=== PATIENT | female | born 1990 | race Caucasian/White ===

== ENCOUNTER 2018-04-28 19:49 | Inpatient (IN) | payer MEDICAID, OTHER | END 2018-05-05 10:38 | disposition home health service (06) | LOC: ED 19:49 → DU 23:51 → MU 23:51 → DU 05-05 10:38 → ED 19:49 → MU 04-29 01:14 → ED 19:49 → MU 04-29 00:43 → ED 19:49 → MU 23:51 → DU 04-29 01:27 | PROC: 30233N1 Transfusion of Nonautologous Red Blood Cells into Peripheral Vein, Percutaneous Approach (ICD-10-PCS; principal; 2018-04-29) | DX: A41.9 Sepsis, unspecified organism (principal); E43 Unspecified severe protein-calorie malnutrition; D68.59 Other primary thrombophilia; E88.40 Mitochondrial metabolism disorder, unspecified; K31.84 Gastroparesis; E83.42 Hypomagnesemia; D64.9 Anemia, unspecified; G93.2 Benign intracranial hypertension; Z68.22 Body mass index [BMI] 22.0-22.9, adult; Z98.2 Presence of cerebrospinal fluid drainage device; Z86.718 Personal history of other venous thrombosis and embolism; Z79.01 Long term (current) use of anticoagulants ==

== ENCOUNTER 2018-05-07 17:23 | Inpatient (IN) | payer MEDICAID ==
[~2018-05-07] VITALS: Ht 157.5 cm; Wt 54.4 kg
[~2018-05-07 17:23] MED LIST: ATIVAN IV; ATIVAN0.5 M1 IV; DIL4I IV; DILAUDID1 MG/M1 IV; GRANISETRON IV; KLONOPIN0.5 MG PO; LORAZEPAM1 IV; LOV40I SC; MORL PO; NAFCILLIN2 G/100 ML IV; PRO40 IV; PROT40I IV; TPN ELECTROLYTE20 M2 IV; ZOF20I IV; ZOF4 IV; [UNRECOGNIZED DRUG - CODE] IV; [UNRECOGNIZED DRUG - OTHER] IV
[2018-05-07 18:36] LABS: PLATELET COUNT 554 x10^3mcL (130-400); RED CELL DISTRIBUTION WIDTH 19.5 % (11.5-14.5)
[2018-05-07 18:47] LABS: CALCIUM 8.6 mg/dL (8.5-10.1); CARBON DIOXIDE 28.9 mmol/L (21-32); CHLORIDE SERUM 103 mmol/L (98-107); CREATININE SERUM 0.6 mg/dL (0.6-1.0); GFR1 > 60 mL/min; GLUCOSE SERUM 111 mg/dL (74-106); POTASSIUM SERUM 3.6 mmol/L (3.5-5.1); SODIUM SERUM 139 mmol/L (136-145)
[2018-05-07 18:51] LABS: BAND NEUTROPHIL 2 % (0-10); MONOCYTE 4 % (0-7); SEGMENTED NEUTROPHILS 73 % (37-75)
[2018-05-07 18:52] LABS: ALKALINE PHOSPHATASE 178 U/L (46-116); ALT/SGPT 90 U/L (14-59); AST/SGOT 19 U/L (15-37); BILIRUBIN TOTAL 0.68 mg/dL (0.20-1.00)
[2018-05-07 18:53] LABS: ALBUMIN 3.1 g/dL (3.4-5.0)
[2018-05-07 18:55] LABS: acanthocyte (spur cell) 1+; rbc morphology (normal/abnorm) ABNORMAL (NORMAL); target cell (codocyte) 2+; tear drop cell (dacryocyte) 1+
[2018-05-07 19:19] LABS: microscopic required? YES; urine erythrocyte NEGATIVE (NEGATIVE)
[2018-05-07 20:37] LABS: CHOLESTEROL/HDL RATIO 4.3; PHOSPHOROUS 3.2 mg/dL (2.5-4.9)
[2018-05-07 20:44] LABS: T3 TOTAL 0.83 ng/mL
[2018-05-07 20:45] LABS: FREE T4 1.04 ng/dL (0.76-1.46); FREE THYROXINE INDEX 2.5 ug/dL (1.4-4.5); T4(THYROXINE) 6.4 ug/dL (4.7-13.3)
[2018-05-07 21:37] LABS: AMPHETAMINE QUAL UR NONE DETECTED (See below)
[2018-05-07 21:54] VITALS: BP 99/43
[2018-05-07 21:57] VITALS: Ht 157.5 cm; Wt 54.4 kg
[2018-05-08 05:51] VITALS: BP 89/47
[2018-05-08 07:15] LABS: CALCIUM 8.1 mg/dL (8.5-10.1); CARBON DIOXIDE 26.2 mmol/L (21-32); CHLORIDE SERUM 105 mmol/L (98-107); CREATININE SERUM 0.6 mg/dL (0.6-1.0); GFR1 > 60 mL/min; GLUCOSE SERUM 110 mg/dL (74-106); MAGNESIUM 2.1 mg/dL (1.8-2.4); PHOSPHOROUS 3.8 mg/dL (2.5-4.9); POTASSIUM SERUM 3.1 mmol/L (3.5-5.1); SODIUM SERUM 140 mmol/L (136-145)
[2018-05-08 08:10] VITALS: BP 91/46
[2018-05-08 09:18] LABS: RED CELL DISTRIBUTION WIDTH 19.3 % (11.5-14.5)
[2018-05-08 11:55] LABS: ATYPICAL LYMPH 1 %; BAND NEUTROPHIL 1 % (0-10); BASOPHIL 0 % (0-2); MONOCYTE 4 % (0-7); PLATELET MORPHOLOGY PLATELETS INCREASED; SEGMENTED NEUTROPHILS 78 % (37-75); rbc morphology (normal/abnorm) ABNORMAL (NORMAL)
[2018-05-08 14:14] LABS: PLATELET COUNT 526 x10^3mcL (130-400)
[2018-05-08 17:46] VITALS: BP 91/45
[2018-05-08 21:06] VITALS: BP 98/51
[2018-05-09 06:11] VITALS: BP 93/46
[2018-05-09 06:31] LABS: CALCIUM 8.2 mg/dL (8.5-10.1); CARBON DIOXIDE 26.1 mmol/L (21-32); CHLORIDE SERUM 106 mmol/L (98-107); CREATININE SERUM 0.5 mg/dL (0.6-1.0); GFR1 > 60 mL/min; GLUCOSE SERUM 90 mg/dL (74-106); MAGNESIUM 2.3 mg/dL (1.8-2.4); PHOSPHOROUS 3.7 mg/dL (2.5-4.9); POTASSIUM SERUM 3.7 mmol/L (3.5-5.1); SODIUM SERUM 142 mmol/L (136-145)
[2018-05-09 06:47] LABS: PLATELET COUNT 476 x10^3mcL (130-400); RED CELL DISTRIBUTION WIDTH 18.7 % (11.5-14.5)
[2018-05-09 07:23] LABS: BAND NEUTROPHIL 2 % (0-10); MONOCYTE 6 % (0-7); SEGMENTED NEUTROPHILS 70 % (37-75); rbc morphology (normal/abnorm) ABNORMAL (NORMAL)
[2018-05-09 07:24] LABS: PLATELET MORPHOLOGY PLATELETS INCREASED
[2018-05-09 09:30] VITALS: BP 96/45
[2018-05-09 12:15] VITALS: BP 107/50
[2018-05-09 14:39] VITALS: BP 117/61
[2018-05-09 17:20] VITALS: BP 98/46
[2018-05-09 21:14] VITALS: BP 93/40
[2018-05-10 05:24] VITALS: BP 102/53
[2018-05-10 07:08] LABS: CALCIUM 8.4 mg/dL (8.5-10.1); CARBON DIOXIDE 25.1 mmol/L (21-32); CHLORIDE SERUM 109 mmol/L (98-107); CREATININE SERUM 0.6 mg/dL (0.6-1.0); GFR1 > 60 mL/min; GLUCOSE SERUM 101 mg/dL (74-106); PHOSPHOROUS 3.4 mg/dL (2.5-4.9); POTASSIUM SERUM 3.9 mmol/L (3.5-5.1); SODIUM SERUM 142 mmol/L (136-145)
[2018-05-10 08:10] LABS: PLATELET COUNT 453 x10^3mcL (130-400)
[2018-05-10 09:38] VITALS: BP 97/55
[2018-05-10 09:59] LABS: BAND NEUTROPHIL 0 % (0-10); BASOPHIL 0 % (0-2); MONOCYTE 7 % (0-7); SEGMENTED NEUTROPHILS 61 % (37-75)
[2018-05-10 10:00] LABS: rbc morphology (normal/abnorm) ABNORMAL (NORMAL)
[2018-05-10 10:01] LABS: acanthocyte (spur cell) 1+; burr cell (echinocyte) 1+; target cell (codocyte) 1+
[2018-05-10 15:17] VITALS: BP 93/43
[2018-05-10 17:07] VITALS: BP 104/38
[2018-05-10 19:15] VITALS: BP 90/66
[2018-05-10 21:39] VITALS: BP 108/52
[2018-05-11 05:41] VITALS: BP 98/54
[2018-05-11 06:22] LABS: CALCIUM 8.3 mg/dL (8.5-10.1); CARBON DIOXIDE 26.6 mmol/L (21-32); CHLORIDE SERUM 110 mmol/L (98-107); CREATININE SERUM 0.5 mg/dL (0.6-1.0); GFR1 > 60 mL/min; GLUCOSE SERUM 96 mg/dL (74-106); PHOSPHOROUS 3.6 mg/dL (2.5-4.9); SODIUM SERUM 143 mmol/L (136-145)
[2018-05-11 09:57] VITALS: BP 96/47
[2018-05-11 10:30] LABS: PLATELET COUNT 364 x10^3mcL (130-400)
[2018-05-11 10:31] LABS: RED CELL DISTRIBUTION WIDTH 19.4 % (11.5-14.5)
[2018-05-11] MEDS ORDERED: LEVOFLOXACIN500 M1 PO (11:01)
[2018-05-11] MEDS ORDERED: BACTROBAN22 TOP (11:23)
[2018-05-11 16:07] LABS: SEGMENTED NEUTROPHILS 66 % (37-75)
[2018-05-11 16:08] LABS: ATYPICAL LYMPH 3 %; MONOCYTE 7 % (0-7)
[2018-05-11 16:09] LABS: BAND NEUTROPHIL 3 % (0-10); rbc morphology (normal/abnorm) ABNORMAL (NORMAL); target cell (codocyte) 2+
[2018-05-11 16:10] LABS: PLATELET MORPHOLOGY PLATELETS NORMAL; acanthocyte (spur cell) 1+; burr cell (echinocyte) 1+; tear drop cell (dacryocyte) 1+
[2018-05-11 16:49] VITALS: BP 96/47
== END 2018-05-11 17:07 | disposition home or self-care (01) | DRG 463 ==
LOC: ED 17:23 → MU 20:08
PROVIDERS: Emergency Medicine; Surgery; ADMIT Internal Medicine
PROC: B544ZZA Ultrasonography of Left Jugular Veins, Guidance (ICD-10-PCS; 2018-05-10)
PROC: 0JH63WZ Insertion of Totally Implantable Vascular Access Device into Chest Subcutaneous Tissue and Fascia, Percutaneous Approach (ICD-10-PCS; 2018-05-10)
PROC: 05HN33Z Insertion of Infusion Device into Left Internal Jugular Vein, Percutaneous Approach (ICD-10-PCS; principal; 2018-05-10 16:45)
DX: N39.0 Urinary tract infection, site not specified (principal); N17.0 Acute kidney failure with tubular necrosis; K83.01 Primary sclerosing cholangitis; E44.0 Moderate protein-calorie malnutrition; D68.59 Other primary thrombophilia; E88.40 Mitochondrial metabolism disorder, unspecified; K31.84 Gastroparesis; K94.22 Gastrostomy infection; E86.0 Dehydration; R62.7 Adult failure to thrive; B96.29 Other Escherichia coli [E. coli] as the cause of diseases classified elsewhere; E78.5 Hyperlipidemia, unspecified; D47.3 Essential (hemorrhagic) thrombocythemia; D64.9 Anemia, unspecified; G93.2 Benign intracranial hypertension; Z68.22 Body mass index [BMI] 22.0-22.9, adult; Z98.2 Presence of cerebrospinal fluid drainage device
CPT/HCPCS: 82962; 83880; 84439; A4301; C1751; C9113; J1642; J1644; J1650; J1885; J1956; J2001; J2060; J2270; J2405; J2543; J2704; J3480; J3490; J7030; J7040; J7131; Q0092; Q9967

== ENCOUNTER 2018-05-26 00:26 | Emergency (ER) | payer MEDICAID ==
[~2018-05-26] VITALS: Ht 162.6 cm; Wt 53.1 kg
[~2018-05-26 00:26] MED LIST changes: +BACTROBAN22 TOP; +LEVOFLOXACIN500 M1 PO
[2018-05-26 00:42] VITALS: Ht 162.6 cm; Wt 53.1 kg
[2018-05-26 03:23] VITALS: BP 111/60
== END 2018-05-26 03:23 | disposition home or self-care (01) ==
LOC: ED 00:26
DX: T82.898A Other specified complication of vascular prosthetic devices, implants and grafts, initial encounter (principal); J45.909 Unspecified asthma, uncomplicated; Z86.2 Personal history of diseases of the blood and blood-forming organs and certain disorders involving the immune mechanism; Z88.2 Allergy status to sulfonamides; Z88.5 Allergy status to narcotic agent; Z88.8 Allergy status to other drugs, medicaments and biological substances; Z91.040 Latex allergy status; Z91.048 Other nonmedicinal substance allergy status

== ENCOUNTER 2018-06-02 16:25 | Emergency (ER) | payer MEDICAID ==
[~2018-06-02] VITALS: Ht 162.6 cm; Wt 52.6 kg
[2018-06-02 16:37] VITALS: Ht 162.6 cm; Wt 52.6 kg
[2018-06-02 18:10] LABS: microscopic required? YES; urine erythrocyte 2+ (NEGATIVE)
[2018-06-02 18:55] LABS: RED CELL DISTRIBUTION WIDTH 24.5 % (11.5-14.5)
[2018-06-02 18:56] LABS: CALCIUM 9.3 mg/dL (8.5-10.1); CARBON DIOXIDE 25.9 mmol/L (21-32); CHLORIDE SERUM 104 mmol/L (98-107); CREATININE SERUM 0.5 mg/dL (0.6-1.0); GFR1 > 60 mL/min; GLUCOSE SERUM 95 mg/dL (74-106); POTASSIUM SERUM 3.8 mmol/L (3.5-5.1); SODIUM SERUM 139 mmol/L (136-145)
[2018-06-02 19:08] LABS: ALKALINE PHOSPHATASE 82 U/L (46-116); ALT/SGPT 21 U/L (14-59); AST/SGOT 29 U/L (15-37); BILIRUBIN TOTAL 0.98 mg/dL (0.20-1.00); TOTAL PROTEIN, SERUM 7.9 g/dL (6.4-8.2)
[2018-06-02 19:15] LABS: BAND NEUTROPHIL 4 % (0-10); BASOPHIL 0 % (0-2); MONOCYTE 5 % (0-7); SEGMENTED NEUTROPHILS 70 % (37-75)
[2018-06-02 19:17] LABS: ovalocyte/elliptocyte 1+; rbc morphology (normal/abnorm) ABNORMAL (NORMAL); target cell (codocyte) 1+; tear drop cell (dacryocyte) 1+
[2018-06-02 19:18] LABS: PLATELET MORPHOLOGY PLATELETS INCREASED
[2018-06-02 19:24] LABS: PLATELET COUNT 562 x10^3mcL (130-400)
[2018-06-02 20:39] VITALS: BP 99/56
[2018-06-02 21:18] LABS: CK-MB 0.5 ng/mL (0-3.6)
== END 2018-06-02 21:18 | disposition home or self-care (01) ==
LOC: ED 16:25
PROVIDERS: Emergency Medicine
DX: N39.0 Urinary tract infection, site not specified (principal); J45.909 Unspecified asthma, uncomplicated; Z88.2 Allergy status to sulfonamides; Z88.8 Allergy status to other drugs, medicaments and biological substances; Z88.1 Allergy status to other antibiotic agents; Z91.040 Latex allergy status; Z98.84 Bariatric surgery status; Z98.890 Other specified postprocedural states
CPT/HCPCS: 83880; J2270; J2405; J2543; Q0092

== ENCOUNTER 2018-06-08 15:37 | Emergency (ER) | payer MEDICAID ==
[~2018-06-08] VITALS: Ht 162.6 cm; Wt 51.7 kg
[2018-06-08 16:07] VITALS: Ht 162.6 cm; Wt 51.7 kg
[2018-06-08] MEDS ORDERED: LEVAQUIN750 MG PO (19:34)
[2018-06-08 19:40] LABS: PLATELET COUNT 399 x10^3mcL (130-400)
[2018-06-08 19:43] LABS: RED CELL DISTRIBUTION WIDTH 26.3 % (11.5-14.5)
[2018-06-08 19:54] LABS: microscopic required? YES; urine erythrocyte TRACE (NEGATIVE)
[2018-06-08 20:49] LABS: rbc morphology (normal/abnorm) ABNORMAL (NORMAL)
[2018-06-08 20:50] LABS: acanthocyte (spur cell) 1+; schistocyte (helmet cell) 1+; target cell (codocyte) 1+
[2018-06-08 23:16] VITALS: BP 101/56
== END 2018-06-08 23:16 | disposition home or self-care (01) ==
LOC: ED 15:37
PROVIDERS: Emergency Medicine
DX: N39.0 Urinary tract infection, site not specified (principal); R53.1 Weakness; D64.9 Anemia, unspecified; K31.84 Gastroparesis; J45.909 Unspecified asthma, uncomplicated; Z98.890 Other specified postprocedural states; Z90.49 Acquired absence of other specified parts of digestive tract; Z90.89 Acquired absence of other organs; Z88.6 Allergy status to analgesic agent; Z88.2 Allergy status to sulfonamides; Z88.1 Allergy status to other antibiotic agents; Z88.8 Allergy status to other drugs, medicaments and biological substances; Z91.040 Latex allergy status
CPT/HCPCS: 82962; J0696; J1200; J1885; J7030; J7040

== ENCOUNTER 2018-06-09 14:54 | Emergency (ER) | payer MEDICAID ==
[~2018-06-09] VITALS: Ht 162.6 cm; Wt 53.5 kg
[~2018-06-09 14:54] MED LIST changes: +LEVAQUIN750 MG PO
[2018-06-09 15:09] VITALS: Ht 162.6 cm; Wt 53.5 kg
[2018-06-09 17:13] VITALS: BP 114/58
== END 2018-06-09 18:58 | disposition home or self-care (01) ==
LOC: ED 14:54
DX: R22.0 Localized swelling, mass and lump, head (principal); R51 Headache; T39.8X5A Adverse effect of other nonopioid analgesics and antipyretics, not elsewhere classified, initial encounter; Y92.89 Other specified places as the place of occurrence of the external cause; J45.909 Unspecified asthma, uncomplicated; Z90.49 Acquired absence of other specified parts of digestive tract; Z90.89 Acquired absence of other organs; Z88.6 Allergy status to analgesic agent; Z88.2 Allergy status to sulfonamides; Z88.1 Allergy status to other antibiotic agents; Z88.8 Allergy status to other drugs, medicaments and biological substances; Z91.040 Latex allergy status
CPT/HCPCS: J1100; Q0163

== ENCOUNTER 2018-09-11 17:49 | Emergency (ER) | payer MEDICAID ==
[~2018-09-11] VITALS: Ht 162.6 cm; Wt 51.3 kg
[2018-09-11 17:55] VITALS: Ht 162.6 cm; Wt 51.3 kg
[2018-09-11 18:54] LABS: PLATELET COUNT 347 x10^3mcL (130-400)
[2018-09-11 18:56] LABS: CALCIUM 8.9 mg/dL (8.5-10.1); CARBON DIOXIDE 29.5 mmol/L (21-32); CHLORIDE SERUM 105 mmol/L (98-107); CREATININE SERUM 0.6 mg/dL (0.6-1.0); GFR1 > 60 mL/min; GLUCOSE SERUM 100 mg/dL (74-106); POTASSIUM SERUM 3.8 mmol/L (3.5-5.1); SODIUM SERUM 143 mmol/L (136-145)
[2018-09-11 19:01] LABS: ALBUMIN 3.7 g/dL (3.4-5.0); ALKALINE PHOSPHATASE 117 U/L (46-116); ALT/SGPT 46 U/L (14-59); AST/SGOT 20 U/L (15-37); BILIRUBIN TOTAL 0.4 mg/dL (0.20-1.00); RED CELL DISTRIBUTION WIDTH 26.3 % (11.5-14.5); TOTAL PROTEIN, SERUM 7.9 g/dL (6.4-8.2)
[2018-09-11 20:22] LABS: BAND NEUTROPHIL 2 % (0-10); METAMYELOCTE 2 % (0-2); MONOCYTE 4 % (0-7); SEGMENTED NEUTROPHILS 52 % (37-75)
[2018-09-11 20:24] LABS: acanthocyte (spur cell) 2+; rbc morphology (normal/abnorm) ABNORMAL (NORMAL)
[2018-09-11 20:25] LABS: target cell (codocyte) 1+; tear drop cell (dacryocyte) 1+
[2018-09-11 20:26] LABS: PLATELET MORPHOLOGY PLATELETS NORMAL
[2018-09-11 22:45] VITALS: BP 96/62
== END 2018-09-11 22:45 | disposition home or self-care (01) ==
LOC: ED 17:49
DX: D50.0 Iron deficiency anemia secondary to blood loss (chronic) (principal); J45.909 Unspecified asthma, uncomplicated; Z90.89 Acquired absence of other organs; Z90.49 Acquired absence of other specified parts of digestive tract; Z86.39 Personal history of other endocrine, nutritional and metabolic disease; Z88.2 Allergy status to sulfonamides; Z88.6 Allergy status to analgesic agent; Z88.8 Allergy status to other drugs, medicaments and biological substances; Z88.1 Allergy status to other antibiotic agents; Z91.041 Radiographic dye allergy status; Z91.040 Latex allergy status
CPT/HCPCS: J1200; J2916

== ENCOUNTER 2018-09-17 22:18 | Emergency (ER) | payer MEDICAID ==
[~2018-09-17] VITALS: Ht 162.6 cm; Wt 51.3 kg
[2018-09-17 22:58] VITALS: Ht 162.6 cm; Wt 51.3 kg
[2018-09-17 23:44] LABS: PLATELET COUNT 334 x10^3mcL (130-400)
[2018-09-17 23:59] LABS: RED CELL DISTRIBUTION WIDTH 25.6 % (11.5-14.5)
[2018-09-18 00:42] LABS: BAND NEUTROPHIL 20 % (0-10); SEGMENTED NEUTROPHILS 70 % (37-75); rbc morphology (normal/abnorm) ABNORMAL (NORMAL)
[2018-09-18 00:43] LABS: PLATELET MORPHOLOGY PLATELETS NORMAL
[2018-09-18 03:15] VITALS: BP 121/80
== END 2018-09-18 03:15 | disposition home or self-care (01) ==
LOC: ED 22:18
PROVIDERS: Emergency Medicine
DX: D64.9 Anemia, unspecified (principal); J45.909 Unspecified asthma, uncomplicated; Z86.39 Personal history of other endocrine, nutritional and metabolic disease; Z90.89 Acquired absence of other organs; Z90.49 Acquired absence of other specified parts of digestive tract; Z98.890 Other specified postprocedural states; Z88.6 Allergy status to analgesic agent; Z88.8 Allergy status to other drugs, medicaments and biological substances; Z88.2 Allergy status to sulfonamides; Z88.1 Allergy status to other antibiotic agents; Z91.041 Radiographic dye allergy status; Z91.040 Latex allergy status
CPT/HCPCS: J1200; J7040; P9016

== ENCOUNTER 2018-09-25 22:01 | Emergency (ER) | payer MEDICAID ==
[~2018-09-25] VITALS: Ht 162.6 cm; Wt 50.9 kg
[2018-09-25 22:34] VITALS: Ht 162.6 cm; Wt 50.9 kg
[2018-09-26 02:13] LABS: UA SPECIFIC GRAVITY 1.015 (1.005-1.035); microscopic required? YES; urine erythrocyte TRACE (NEGATIVE)
[2018-09-26 02:41] LABS: CARBON DIOXIDE 26.5 mmol/L (21-32); CHLORIDE SERUM 107 mmol/L (98-107); CREATININE SERUM 0.5 mg/dL (0.6-1.0); GFR1 > 60 mL/min; GLUCOSE SERUM 90 mg/dL (74-106); POTASSIUM SERUM 3.8 mmol/L (3.5-5.1); SODIUM SERUM 141 mmol/L (136-145)
[2018-09-26 02:45] LABS: ALBUMIN 3.4 g/dL (3.4-5.0); ALKALINE PHOSPHATASE 106 U/L (46-116); ALT/SGPT 38 U/L (14-59); AST/SGOT 18 U/L (15-37); BILIRUBIN TOTAL 0.29 mg/dL (0.20-1.00)
[2018-09-26 02:51] LABS: PLATELET COUNT 198 x10^3mcL (130-400)
[2018-09-26 02:53] LABS: RED CELL DISTRIBUTION WIDTH 27.2 % (11.5-14.5)
[2018-09-26 03:18] LABS: SEGMENTED NEUTROPHILS 65 % (37-75)
[2018-09-26 03:19] LABS: MONOCYTE 5 % (0-7); rbc morphology (normal/abnorm) ABNORMAL (NORMAL)
[2018-09-26 04:45] VITALS: BP 100/59
== END 2018-09-26 04:45 | disposition home or self-care (01) ==
LOC: ED 22:01
PROVIDERS: Emergency Medicine
DX: N39.0 Urinary tract infection, site not specified (principal); E86.0 Dehydration; R51 Headache; R53.1 Weakness; J45.909 Unspecified asthma, uncomplicated; Z86.2 Personal history of diseases of the blood and blood-forming organs and certain disorders involving the immune mechanism; Z90.89 Acquired absence of other organs; Z90.49 Acquired absence of other specified parts of digestive tract; Z88.1 Allergy status to other antibiotic agents; Z88.2 Allergy status to sulfonamides; Z88.6 Allergy status to analgesic agent; Z88.8 Allergy status to other drugs, medicaments and biological substances; Z91.040 Latex allergy status; Z91.048 Other nonmedicinal substance allergy status
CPT/HCPCS: 99406; J2270; J2405; J7030

== ENCOUNTER 2018-09-26 19:05 | Emergency (ER) | payer MEDICAID ==
[~2018-09-26] VITALS: Ht 162.6 cm; Wt 50.8 kg
[2018-09-26 19:10] VITALS: Ht 162.6 cm; Wt 50.8 kg
[2018-09-26 21:04] LABS: PLATELET COUNT 177 x10^3mcL (130-400)
[2018-09-26 21:07] LABS: RED CELL DISTRIBUTION WIDTH 28.5 % (11.5-14.5)
[2018-09-26 21:16] LABS: CALCIUM 9.1 mg/dL (8.5-10.1); CARBON DIOXIDE 25.8 mmol/L (21-32); CHLORIDE SERUM 108 mmol/L (98-107); CREATININE SERUM 0.5 mg/dL (0.6-1.0); GFR1 > 60 mL/min; GLUCOSE SERUM 77 mg/dL (74-106); POTASSIUM SERUM 3.7 mmol/L (3.5-5.1); SODIUM SERUM 143 mmol/L (136-145)
[2018-09-26 21:20] LABS: ALBUMIN 3.5 g/dL (3.4-5.0); ALKALINE PHOSPHATASE 106 U/L (46-116); ALT/SGPT 42 U/L (14-59); AST/SGOT 20 U/L (15-37); BILIRUBIN TOTAL 0.28 mg/dL (0.20-1.00); TOTAL PROTEIN, SERUM 7.1 g/dL (6.4-8.2)
[2018-09-26 21:41] LABS: microscopic required? YES; urine erythrocyte TRACE (NEGATIVE)
[2018-09-26 21:45] LABS: BAND NEUTROPHIL 2 % (0-10); METAMYELOCTE 1 % (0-2); MONOCYTE 3 % (0-7); MYELOCYTE 1 % (0-2); SEGMENTED NEUTROPHILS 61 % (37-75)
[2018-09-26 21:48] LABS: acanthocyte (spur cell) 1+; rbc morphology (normal/abnorm) ABNORMAL (NORMAL); target cell (codocyte) 1+; tear drop cell (dacryocyte) 1+
[2018-09-26 21:49] LABS: PLATELET MORPHOLOGY PLATELETS NORMAL
[2018-09-26 23:01] VITALS: BP 122/61
== END 2018-09-26 23:01 | disposition home or self-care (01) ==
LOC: ED 19:05
PROVIDERS: Emergency Medicine
DX: N39.0 Urinary tract infection, site not specified (principal); J45.909 Unspecified asthma, uncomplicated; Z88.6 Allergy status to analgesic agent; Z88.2 Allergy status to sulfonamides; Z88.1 Allergy status to other antibiotic agents; Z88.8 Allergy status to other drugs, medicaments and biological substances; Z91.040 Latex allergy status; Z90.89 Acquired absence of other organs; Z90.49 Acquired absence of other specified parts of digestive tract
CPT/HCPCS: 36415; J0696; J7030

== ENCOUNTER → 2018-10-29 | Outpatient (CLI) | payer MEDICAID | END | disposition home or self-care (01) | LOC: CT 09:00 | PROC: BW251ZZ Computerized Tomography (CT Scan) of Chest, Abdomen and Pelvis using Low Osmolar Contrast (ICD-10-PCS; principal; 2018-10-29) | DX: I82.629 Acute embolism and thrombosis of deep veins of unspecified upper extremity (principal) | CPT/HCPCS: Q9967 ==

== ENCOUNTER 2018-11-05 17:14 | Emergency (ER) | payer MEDICAID ==
[~2018-11-05] VITALS: Ht 162.6 cm; Wt 49.9 kg
[2018-11-05 17:34] VITALS: Ht 162.6 cm; Wt 49.9 kg
[2018-11-05 19:19] LABS: PLATELET COUNT 237 x10^3mcL (130-400)
[2018-11-05 19:25] LABS: RED CELL DISTRIBUTION WIDTH 30.4 % (11.5-14.5)
[2018-11-05 19:26] LABS: CALCIUM 9.1 mg/dL (8.5-10.1); CARBON DIOXIDE 28.3 mmol/L (21-32); CHLORIDE SERUM 107 mmol/L (98-107); CREATININE SERUM 0.5 mg/dL (0.6-1.0); GFR1 > 60 mL/min; GLUCOSE SERUM 91 mg/dL (74-106); POTASSIUM SERUM 3.8 mmol/L (3.5-5.1); SODIUM SERUM 142 mmol/L (136-145)
[2018-11-05 19:45] LABS: BAND NEUTROPHIL 0 % (0-10); BASOPHIL 0 % (0-2); MONOCYTE 6 % (0-7); SEGMENTED NEUTROPHILS 52 % (37-75)
[2018-11-05 19:47] LABS: rbc morphology (normal/abnorm) ABNORMAL (NORMAL)
[2018-11-05 19:48] LABS: target cell (codocyte) 1+
[2018-11-05 21:32] VITALS: BP 108/59
== END 2018-11-05 21:32 | disposition home or self-care (01) ==
LOC: ED 17:14
PROVIDERS: Emergency Medicine
DX: G44.209 Tension-type headache, unspecified, not intractable (principal); T67.5XXA Heat exhaustion, unspecified, initial encounter; J45.909 Unspecified asthma, uncomplicated; Z86.2 Personal history of diseases of the blood and blood-forming organs and certain disorders involving the immune mechanism; Z90.89 Acquired absence of other organs; Z90.49 Acquired absence of other specified parts of digestive tract; Z88.1 Allergy status to other antibiotic agents; Z88.2 Allergy status to sulfonamides; Z88.6 Allergy status to analgesic agent; Z88.8 Allergy status to other drugs, medicaments and biological substances; Z91.040 Latex allergy status; Z91.048 Other nonmedicinal substance allergy status; X58.XXXA Exposure to other specified factors, initial encounter; Y93.89 Activity, other specified; Y92.89 Other specified places as the place of occurrence of the external cause; Y99.8 Other external cause status
CPT/HCPCS: J7030

== ENCOUNTER 2018-12-17 18:33 | Emergency (ER) | payer MEDICAID ==
[~2018-12-17] VITALS: Ht 162.6 cm; Wt 49.9 kg
[2018-12-17 18:36] VITALS: Ht 162.6 cm; Wt 49.9 kg
[2018-12-17 19:10] LABS: PLATELET COUNT 233 x10^3mcL (130-400)
[2018-12-17 19:17] LABS: CALCIUM 8.6 mg/dL (8.5-10.1); CARBON DIOXIDE 24.7 mmol/L (21-32); CHLORIDE SERUM 106 mmol/L (98-107); CREATININE SERUM 0.5 mg/dL (0.6-1.0); GFR1 > 60 mL/min; GLUCOSE SERUM 94 mg/dL (74-106); SODIUM SERUM 141 mmol/L (136-145)
[2018-12-17 19:20] LABS: RED CELL DISTRIBUTION WIDTH 18.2 % (11.5-14.5)
[2018-12-17 19:22] LABS: ALKALINE PHOSPHATASE 122 U/L (46-116); ALT/SGPT 76 U/L (14-59); AST/SGOT 35 U/L (15-37); BILIRUBIN TOTAL 0.3 mg/dL (0.20-1.00)
[2018-12-17 19:34] LABS: ALBUMIN 3.5 g/dL (3.4-5.0); TOTAL PROTEIN, SERUM 7.1 g/dL (6.4-8.2)
[2018-12-17 19:36] LABS: BAND NEUTROPHIL 1 % (0-10); MONOCYTE 10 % (0-7); SEGMENTED NEUTROPHILS 52 % (37-75)
[2018-12-17 19:39] LABS: rbc morphology (normal/abnorm) ABNORMAL (NORMAL); target cell (codocyte) 1+
[2018-12-17 19:40] LABS: PLATELET MORPHOLOGY PLATELETS NORMAL; acanthocyte (spur cell) 1+
[2018-12-17 21:35] VITALS: BP 106/60
== END 2018-12-17 21:35 | disposition home or self-care (01) ==
LOC: ED 18:33
DX: R07.89 Other chest pain (principal); M54.9 Dorsalgia, unspecified; J45.909 Unspecified asthma, uncomplicated; Z90.49 Acquired absence of other specified parts of digestive tract; Z90.89 Acquired absence of other organs; Z98.890 Other specified postprocedural states; Z88.2 Allergy status to sulfonamides; Z88.8 Allergy status to other drugs, medicaments and biological substances; Z88.1 Allergy status to other antibiotic agents; Z86.2 Personal history of diseases of the blood and blood-forming organs and certain disorders involving the immune mechanism; Z91.048 Other nonmedicinal substance allergy status
CPT/HCPCS: 36415; J2270; Q0092

== ENCOUNTER 2019-04-01 22:47 | Inpatient (IN) | payer MEDICAID ==
[~2019-04-01] VITALS: Ht 162.6 cm; Wt 47.6 kg
[2019-04-01 22:54] VITALS: Ht 162.6 cm; Wt 47.6 kg
--- NOTE | 2019-04-02 00:03 | NUR ---
PT PRESENTS TO ED WITH C/O FEVER. PT HAS AN EXTENSIVE MEDICAL HISTORY WITH A PORT. PT STATES THAT PRIOR TO THANKGIVING SHE WAS HOSPITALIZED FOR IV ANTIBIOTIC TREATMENT OF AN INFECTION OF HER PORT. PT STATES THAT SHE WAS DISCHARGED HOME BUT RECEIVED A CALL TODAY FROM HER VOCATIONAL TECHNICAL EDUCATION DIRECTOR TELLING HER THAT HER FOLLOW UP CULTURES ARE POSITIVE STILL. PT ALSO REPORTS THAT SINCE LAST NIGHT SHE HAS BEEN EXPERIENCING BODY ACHES. APPROXIMATELY 2 HRS AGO PT DEVELOPED CHILLS AND STATES THAT SHE FEELS FEVERISH. PT NOTED WITH CHILLS AND TREMORS. PT ALSO STATES TO FEELING NAUSEOUS. PT IS AOX4, RESP EVEN AND UNLABORED, MILD DISTRESS NOTED.
[2019-04-02 00:57] LABS: CALCIUM 9.6 mg/dL (8.5-10.1); CARBON DIOXIDE 29.2 mmol/L (21-32); CHLORIDE SERUM 103 mmol/L (98-107); CREATININE SERUM 0.7 mg/dL (0.6-1.0); GFR1 > 60 mL/min; GLUCOSE SERUM 98 mg/dL (74-106); POTASSIUM SERUM 3.7 mmol/L (3.5-5.1); SODIUM SERUM 140 mmol/L (136-145)
[2019-04-02 01:02] LABS: ALKALINE PHOSPHATASE 134 U/L (46-116); ALT/SGPT 64 U/L (14-59); AST/SGOT 31 U/L (15-37); BILIRUBIN TOTAL 0.27 mg/dL (0.20-1.00)
[2019-04-02 01:04] LABS: PLATELET COUNT 281 x10^3mcL (130-400); RED CELL DISTRIBUTION WIDTH 13.2 % (11.5-14.5); TOTAL PROTEIN, SERUM 8.3 g/dL (6.4-8.2)
[2019-04-02 01:06] LABS: BASOPHIL % 0 % (0-2)
--- NOTE | 2019-04-02 01:26 | NUR ---
PT NO LONGER SHAKING AT THIS TIME. PT RESTING IN A POSITION OF COMFORT, TAKING TO VISITOR AT BEDSIDE.
--- NOTE | 2019-04-02 01:50 | NUR ---
DR HERR AWARE OF PERSISTANT ELEVATED TEMPERATURE. BLANKET REMOVED FROM PT AT THIS TIME.
--- NOTE | 2019-04-02 04:03 | NUR ---
INFORMED ADMITTING RESIDENT OF PT NPO STATUS AND SHE STATES THAT SHE WILL CHANGE THE ORDERS.
--- NOTE | 2019-04-02 04:37 | NUR ---
MORPHINE AND ZOFRAN ADMINISTERED PER PRN ORDER FOR PAIN AND NAUSEA. SEE EMAR FOR RECORD.
[2019-04-02 05:25] LABS: PLATELET COUNT 246 x10^3mcL (130-400); RED CELL DISTRIBUTION WIDTH 13.4 % (11.5-14.5)
[2019-04-02 05:29] LABS: BASOPHIL % 0 % (0-2)
[2019-04-02 05:46] LABS: CARBON DIOXIDE 23.6 mmol/L (21-32); CHLORIDE SERUM 105 mmol/L (98-107); CREATININE SERUM 0.6 mg/dL (0.6-1.0); GFR1 > 60 mL/min; GLUCOSE SERUM 131 mg/dL (74-106); MAGNESIUM 1.3 mg/dL (1.8-2.4); PHOSPHOROUS 2.1 mg/dL (2.5-4.9); POTASSIUM SERUM 3.1 mmol/L (3.5-5.1); SODIUM SERUM 138 mmol/L (136-145)
--- NOTE | 2019-04-02 05:56 | NUR ---
PT RESTING WITH EYES CLOSED AT THIS TIME, RESP EVEN AND UNLABORED, NO ACUTE DISTRESS NOTED.
[2019-04-02 06:30] VITALS: BP 104/59
--- NOTE | 2019-04-02 07:04 | NUR ---
PT RESTING IN A POSITION OF COMFORT, AOX4, RESP EVEN AND UNLABORED, NO ACUTE DISTRESS NOTED.
--- NOTE | 2019-04-02 07:22 | NUR ---
ATTEMPTED TO CALL REPORT, RN NOT AVAILABLE
--- NOTE | 2019-04-02 07:38 | NUR ---
PT REPORT CALLED TO JUSTIN WALLS TO ASSUME PT CARE.
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
--- NOTE | 2019-04-02 08:57 | NUR ---
IVF NS AT 100ML/HR INFUSING TO RT HAND IV SITE, NO INFILTRATION NOTED. RT AT BEDSIDE GIVEN BREATHING TREATMENT.
[2019-04-02 10:38] VITALS: BP 98/43
[2019-04-02 12:12] VITALS: BP 107/52
--- NOTE | 2019-04-02 14:22 | NUR ---
RECEIVED A CALL FROM OR NURSE THAT DOCTOR ALBA IS IN OR FOR PORT A CATH REMOVAL. I WENT IN THE ROOM TO INFORMED PATIENT, TOYA WIPES PROVIDED. 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 PATIENT REPEATELY ASKED FOR MEDICINES TO PUT HER TO SLEEP DURING PORT A CATH REMOVAL. PER NELY OR NURSE PATIENT WILL BE RECEIVING SEDATIVE PRIOR TO PROCEDURE. PATIENT THEN STATED THAT SHE HAD TO BE ASLEEP IF NOT SHE WOULD NOT DOING IT.
--- NOTE | 2019-04-02 14:30 | NUR ---
PATIENT WAS SITTING ON THE GUENEY AND DOCTOR WILLIS ATTEMPTED TO EXPLAIN TO PATIENT REGUARDING TO THE PROCEDURE. PATIENT BECAME VERY EMOTIONAL AND CRIED STATED SHE WILL NOT LET HIM REMOVE PORT A CATH WITHOUT GIVEN ANESTHESIA. DOCTOR WILLIS LEFT THE ROOM STATED WILL RESCHEDULE.
--- NOTE | 2019-04-02 15:00 | NUR ---
SEEN PATIENT CRYING STATED THAT SHE REALLY WANTS HER PORT A CATH TO BE REMOVED EVEN THOUGH WITHOUT ANESTHESIA, SHE ASKED ME TO CALL DOCTOR WILLIS BACK.
--- NOTE | 2019-04-02 15:14 | NUR ---
Discount pharmacy card and list to low cost medical clinics given to patient by Brinda chen.
[2019-04-02 15:52] VITALS: BP 123/63
--- NOTE | 2019-04-02 16:57 | NUR ---
PATIENT STATED THAT SHE IS HAVING FEVER AND HER PORT A CATH HAS TO BE REMOVED NOW. TEMP CHEKCED =99.1, INFORMED PATIENT THAT SHE HAS NO FEVER AT THIS TIME. PATIENT REQUESTED TYLENOL VIA RECTAL. TYLENOL 650MG PER RECTAL GIVEN PER PATIENT'S REQUESTED. PATIENT IS VERY FRUSTATED AND ANXIOUS STATED I AM IN PAIN AND I WANT ATIVAN FOR MY ANXIETY.
--- NOTE | 2019-04-02 17:05 | NUR ---
MORPHINE 2MG IVP GIVEN SLOWLY TO RIGHT HAND IV SITE, NO IV IN FILTRATION NOTED. PATIENT BECAME MORE TENSE WHEN HER PARENTS ARRIVED. DEDICATED REGIONAL DRIVER AND RATOPRINTER MADE AWARE. I SPOKE TO DOCTOR JAMIL STATED THAT SHE WILL TRY TO CONTACT DOCTOR ALBA AGAIN.
--- NOTE | 2019-04-02 17:12 | NUR ---
PATIENT IS VERY FRUSTATED AND KEPT ASKING ME TO CALL THE SURGEON TO REMOVE PORT A CATH. I EXPLAINED TO PATIENT THAT SURGEON MADE AWARE. PATIENT BECAME ANGRY AND REQUESTED FOR ME TO CALL DOCTOR. DOCTOR JAMIL PAGED AND CALLED BACK STATED THAT SHE WILL TRY TO CALL DOCTOR ALBA BACK. PATIENT'S PARENTS AT BEDSIDE.
[2019-04-02 17:26] LABS: UA SPECIFIC GRAVITY <=1.005 (1.005-1.035); microscopic required? YES; urine erythrocyte 1+ (NEGATIVE)
--- NOTE | 2019-04-02 17:57 | NUR ---
DOCTOR GARCÍA SPOKE TO PATIENT VIA PHONE. NOTED NEW ORDER FOR ATIVAN IV PRN.
--- NOTE | 2019-04-02 19:00 | NUR ---
ATIVAN 0.5MG IVP GIVEN BY CHARGE NURSE FOR ANXIETY.
--- NOTE | 2019-04-02 19:31 | NUR ---
RECIEVED PT FROM PREVIOUS NURSE. PT SLEEPING. ON 2L NC, RR EVEN AND UNLABORED. DENIES PAIN AND SOB, NO SIGNS OF RESP DISTRESS. BED IN LOWEST POSITION AND CALL LIGHT WITHIN REACH. WILL CONTINUE TO MONITOR.
[2019-04-02 20:24] VITALS: BP 123/64
--- NOTE | 2019-04-02 20:48 | NUR ---
PT TEMP WAS 102.4 AND TYLENOL RECTAL WAS GIVEN ORDERED. PT REFUSING ICE PACKS. WILL CONTINUE TO MONITOR.
--- NOTE | 2019-04-02 23:12 | NUR ---
SECOND TYLENOL SUPP ADMINISTERED PER DR. PETERS.
--- NOTE | 2019-04-03 00:20 | NUR ---
PT TEMP 102.2 AFTER SECOND TYLENOL SUPP. INFORMED DR. DOAN. AWAITING FURTHER ORDERS.
--- NOTE | 2019-04-03 01:04 | NUR ---
INFORMED PT OF IMPORTANCE OF USING ICE PACKS AND APPLYING COOLING MEASURES TO BRING DOWN TEMP. PT AGREED. ICE PACKS APPLIED.
--- NOTE | 2019-04-03 03:30 | NUR ---
PT RESTING IN BED. RR EVEN AND UNLABORED. IN NO ACUTE DISTRESS. CALL LIGHT WITHIN REACH. BED IN LOWEST POSITION. WILL CONTINUE TO MONITOR.
[2019-04-03 05:03] VITALS: BP 94/46
--- NOTE | 2019-04-03 05:08 | NUR ---
PT BP 94/ MAP. PT ASYMPTOMATIC. INFORMED DR. DOAN. NO FURTHER ORDERS AT THIS TIME.
[2019-04-03 07:04] LABS: PLATELET COUNT 207 x10^3mcL (130-400); RED CELL DISTRIBUTION WIDTH 13.2 % (11.5-14.5)
--- NOTE | 2019-04-03 07:05 | NUR ---
RECEIVED PT FROM PAL RN. PT RESTING IN BED W/ BOTH EYES CLOSED. NO S/S OF ACUTE DISTRESS. NO S/S OF PAIN. NO SOB ON 2LNC. IV WNL TO LFA, IV FLUIDS FLOWING. SITE WNL. CONTACT PREC IN PLACE. BED IN LOW POSITION. CALL LIGHT WITHIN REACH. WILL CONT. TO MONITOR.
[2019-04-03 07:36] LABS: CALCIUM 8.2 mg/dL (8.5-10.1); CARBON DIOXIDE 26.3 mmol/L (21-32); CHLORIDE SERUM 106 mmol/L (98-107); CREATININE SERUM 0.6 mg/dL (0.6-1.0); GFR1 > 60 mL/min; GLUCOSE SERUM 103 mg/dL (74-106); MAGNESIUM 1.8 mg/dL (1.8-2.4); PHOSPHOROUS 3.7 mg/dL (2.5-4.9); POTASSIUM SERUM 3.5 mmol/L (3.5-5.1); SODIUM SERUM 140 mmol/L (136-145)
[2019-04-03 08:42] VITALS: BP 98/55
--- NOTE | 2019-04-03 12:09 | NUR ---
BP 90/47, DR. GARCÍA MADE AWARE. RECEIVED TELEPHONE ORDER FOR NS BOLUS 2L ONCE SEE MAR FOR ORDER. NO S/S OF ACUTE DISTRESS. ASYMPTOMATIC AT THIS TIME. NO DIZZINESS. AA/OX4. LAYING IN BED. IV WNL TO LFA, IVF FLOWING. NO CHEST PAIN. NO SOB ON 2LNC. REPOSITIONS INDEPENDENTLY. BED IN LOW POSITION. CALL LIGHT WITHIN REACH. WILL CONT. TO MONITOR.
[2019-04-03 12:25] VITALS: BP 93/46
[2019-04-03 13:04] LABS: BAND NEUTROPHIL 29 % (0-10); MONOCYTE 4 % (0-7); SEGMENTED NEUTROPHILS 53 % (37-75)
[2019-04-03 13:05] LABS: PLATELET MORPHOLOGY PLATELETS NORMAL; rbc morphology (normal/abnorm) NORMAL (NORMAL)
--- NOTE | 2019-04-03 14:52 | NUR ---
Initial Nutrition Assessment: 241T/B ARIAN KITCHENLIN PABLO IA HR Dx: Bacteremia PMHx: mitochondrial disease, primary sclerosing cholangitis, pseudotumor cerebri with ventriculoperitoneal shunt placement, gastroparesis and currently on TPN, deep venous thrombosis PSHx: Cholecystectomy, Other (colectomy, BUCKRAM SEWER shunt, ), G tube placement Labs: CA 8.2L, ALT 64H, WBC 19.2H, HGB 11.0L Meds: Ativan, Zofran, zosyn Diet: TPN, currently PPN to be started PO intake since admission: NPO Ht: 162.56 cm (64") Wt: 47.6 kg (105#) BMI: 18 kg/m2 Bed scale: 105# IBW: 120# (55 kg) %IBW: 87 UBW: 105# Age: 28/F Food Allergies: Iodine Skin: intact Osorio: 19 Edema: none GI: Last BM: 04/03 Per H&P, Pt is a 28-year-old female with multiple medical problems including mitochondrial disease, primary sclerosing cholangitis, pseudotumor cerebri with ventriculoperitoneal shunt placement, gastroparesis and currently on TPN, deep venous thrombosis, previous splenectomy, cholecystectomy, colectomy with ileostomy placement, came in to the ED because her GI specialist asked her to go to ED since she her blood culture showed positive for "staph" and grew gram positive cocci in clusters. RD Note (04/03): Patient was alert and oriented. Patient said that she is on TPN at home and eats little bites of food occasionally for oral gratification. Patient has sepsis 2/2 infected port and Hx gastroparesis with intestinal dysmotility, s/p colon resection. FNS received consult for 'PPN' on 04/02. Patient will have port replacement and will received PPN until that time. Problem with: N/V/D/C: none Problems with: Chewing: Swallowing: none, but no PO d/t medical condition Current appetite: good Recent wt change: has lost some weight, not sure abt lbs. %wt change: n/a Vitamin/Supplement use: n/a Special diet at home: TPN D 25%, AA 5% @ 80cc/hr, lipids 10% @ 10cc/hr (per pharmacy) Physical activity: sedentary Nutrition education given: none at this aldo Food-drug interactions: none Education given: n/a Estimated Nutritional Needs Based on current body weight (47.6 kg) Energy: 1360-2133 kcal/day (30-35 kcal/kg for bacteremia) Protein: 57-67 g/day (1.2-1.4 g/kg for bacteremia) Fluid: 3128-4061 mL/day (1 mL/kcal) Nutrition Diagnosis: 1. Increased nutrient needs related to bacteremia as evidenced by WBC 19.2 Intervention 1. Recommend PPN (per pharmacy), D 10%, AA 4.25%, IL 10% @ 90cc/hr. This will provide 1460 kcal and 81.6g protein. This will meet 100% calorie and protein needs of the patient. 2. Once, port is replaced, start TPN per patient's home regimen. D 25%, AA 5% @ 80 ml/hr, IL 20% @ 10 ml/hr. This will meet 100% calorie and protein needs of the patient. Paged Dr. Reyes, waiting for call back. Monitor/Evaluate Goal: PO intake at least 75% of estimated needs Monitor: PO intake, Labs, GI function F/U in 2-3 days as high risk 04/05-
[2019-04-03 16:42] VITALS: BP 103/51
--- NOTE | 2019-04-03 18:34 | NUR ---
PT LAYING IN BED. AA/OX4. NO S/S OF ACUTE DISTRESS. NO SOB ON 2LNC. NO CHEST PAIN. NO N/V. NO CHILLS. NO FEVER. VS STABLE AT THIS TIME. IV WNL TO LFA, IVF FLOWING. CALM/COOPERATIVE AT THIS TIME. ILEOSTOMY CDI. CONTACT PREC IN PLACE. BED IN LOW POSITION. CALL LIGHT WITHIN REACH. WILL ENDORSE TO ONCOMING SHIFT.
--- NOTE | 2019-04-03 20:00 | NUR ---
RECEIVED PT IN BED, A/O X4. ABLE TO VERBALIZE NEEDS. DENIES HEADACHE/ DIZZINESS. AFEBRILE AND VITAL SIGNS STABLE. RESP. EVEN AND UNLABORED, LUNG SOUNDS CLEAR BILAT. ON ROOM AIR AT THIS TIME. SR /ST ON THE MONITOR, DENIES CP OR PRESSURE. ILEOSTOMY TO RQ ABDOMEN INTACT AND PATENT. GT TO LT ABD. WITH GREEN DRAINAGE NOTED. BS ACTIVE, NO N/V NOTED. IVF, D10 AT 90ML/HR, INFUSING VIA LFA, SITE CLEAR. ASSISTED WITH HS CARE. ON CONTACT ISOLATION, WILL MAINTAINED PREC. CALL LIGHT WITHIN REACH. WILL CONTINUE TO MONITOR.
[2019-04-03 20:05] VITALS: BP 101/51
--- NOTE | 2019-04-03 22:00 | NUR ---
STARTED ON PPN AT 90ML/HR ORDERED.
--- NOTE | 2019-04-03 22:30 | NUR ---
COMPLAINED OF GEN. BODY PAIN, 09/23, REQUESTING PAIN MED, MEDICATED WITH MORPHINE SULFATE WITH RELIEF. WILL CONTINUE TO MONITOR.
--- NOTE | 2019-04-04 01:18 | NUR ---
REQUESTED ATIVAN FOR ANXIETY, MEDICATED ORDERED. RESP EVEN AND UNLABORED. RESTING QUIETLY ,WITH EYES CLOSED , APPEARS ASLEEP, EASILY AROUSABLE. WILL CONTINUE TO MONITOR.
[2019-04-04 04:52] VITALS: BP 100/56
--- NOTE | 2019-04-04 06:08 | NUR ---
AFEBRILE AND VITAL SIGNS STABLE. RESP. EVEN AND UNLABORED. NO ACUTE DISTRESS NOTED. DUE MEDS GIVEN ORDERED, LUIS. WELL. PPN INFUSING VIA LT HAND, SITE CLEAR. ILEOSTOMY BAG INTACT AND PATENT. GT IN PLACE. KEPT COMFORTABLE.NPO MAINTAINED. WILL CONTINUE TO MONITOR.
--- NOTE | 2019-04-04 06:55 | NUR ---
PT REFUSED TOYA WASH AT THIS TIME. PT STATES SHE WANTED TO SLEEP FOR FEW MORE MINS. REPORT GIVEN TO ZACH WALLS IN OR. WILL ENDORSE TO INCOMING NURSE.
--- NOTE | 2019-04-04 07:30 | NUR ---
RECEIVED PT FROM NIGHT RN. CRUZ X 4. PT AMBULATED FROM BATHROOM TO BED WITHOUT DIFFICULTY. RESPIRATIONS UNLABORED WITH EQUAL CHEST EXPANSION. LUNG SOUNDS CLR BILATERALLY ON RA. TELE 13 WITH SR. PERIPHERAL PULSES STRONG BILATERALLY AND NO EDEMA NOTED. IELOSTOMY TO RIGHT ABD AND CDI. G TUBE CLAMPED. CALL LIGHT WITHIN REACH. TINSTRUCTED TO CALL FOR ANY PAIN/DISCOMFORT.WILL CONTINUE TO MONITOR PT.
--- NOTE | 2019-04-04 08:21 | NUR ---
OR NURSE AND TECH HERE TO FACILITIES CLERK PT.LAB AT BEDSIDE DRAWING BLOOD.WILL TAKE PPN WITH HER.
[2019-04-04 08:55] LABS: CALCIUM 8.4 mg/dL (8.5-10.1); CARBON DIOXIDE 27.6 mmol/L (21-32); CHLORIDE SERUM 109 mmol/L (98-107); CREATININE SERUM 0.6 mg/dL (0.6-1.0); GFR1 > 60 mL/min; GLUCOSE SERUM 90 mg/dL (74-106); POTASSIUM SERUM 3.7 mmol/L (3.5-5.1); SODIUM SERUM 142 mmol/L (136-145)
[2019-04-04 09:19] LABS: PLATELET COUNT 199 x10^3mcL (130-400); RED CELL DISTRIBUTION WIDTH 13.4 % (11.5-14.5)
[2019-04-04 10:33] LABS: BAND NEUTROPHIL 12 % (0-10); BASOPHIL 0 % (0-2); MONOCYTE 9 % (0-7); SEGMENTED NEUTROPHILS 63 % (37-75)
[2019-04-04 10:40] LABS: acanthocyte (spur cell) 1+; burr cell (echinocyte) 1+; rbc morphology (normal/abnorm) ABNORMAL (NORMAL); target cell (codocyte) 1+; tear drop cell (dacryocyte) 1+
--- NOTE | 2019-04-04 11:21 | NUR ---
PT BACK FROM RECOVERY ROOM. S/P MEDIPORT REMOVED. VSS. L CHEST WITH DRESSING CDI.
[2019-04-04 11:22] VITALS: BP 94/66
[2019-04-04 11:59] VITALS: BP 99/43
--- NOTE | 2019-04-04 12:00 | NUR ---
PT DEMANDED TO TALK TO THE DOCTOR.WANTED A PICCLINE OR MIDLINE INSERTED ON HER.PAGED .
--- NOTE | 2019-04-04 13:55 | NUR ---
I HAVE REVIEWED THE DATA COLLECTION BY KAVITA HIGGINBOTHAM (NAME):BELKIS ALFARO RN ENTERED ON (DATE/TIME):04/04/19 7369 I CONCUR WITH THE DATA AND ANY EXCEPTIONS OR COMMENTS ARE LISTED BELOW:
--- NOTE | 2019-04-04 14:12 | NUR ---
CAME TO TALK TO PT.EXPLAINED TO PT THAT HE'S WAITING FOR THE CULTURE AND SENSITIVITY TO BE DONE.PT VERBALIZES UNDERSTANDING
--- NOTE | 2019-04-04 15:17 | NUR ---
CANCELLATION REQUESTED FOR ECHOCARDIOGRAM
[2019-04-04 16:21] VITALS: BP 107/54
--- NOTE | 2019-04-04 18:00 | NUR ---
CALLED TO TO CALL/TXT RE; THE RESULTS OF THE BLOOD C/S W/ SENSITIVITY TO MEDICATIONS. SHE STATED SHE'LL TELL .
--- NOTE | 2019-04-04 18:25 | NUR ---
INFORMED BY GOLF CART ATTENDANT ABOUT BLOOD CULTURE RESULT. GOLF CART ATTENDANT TALKED TO DR. CORDERO AND DR CORDERO WILL INFORM DR GARCÍA. NO SIGNIFICANT CHANGES NOTED. WILL ENDORSE CARE TO NIGHT RN.
--- NOTE | 2019-04-04 19:36 | NUR ---
RECEIVED AWAKE SITIING IN BED, FAMILY AT BEDSIDE VERY SUPPORTIVE OF PATIENT'S CURRENT PLAN OF CARE. IV SITE ACCESS AT THE LEFT HAND INTACT AND PATENT WITH PPN INFUSING AT 90ML/HR TOLERATING WELL. ON TELE #[address] AT 101/MIN. DENEIS ANY CHEST PAIM/DISCOMFORT. CALL LIGHT WITHIN REACH. INSTRUCTED TO CALL FOR ANY ASSISTANCE NEEDED AND VEBRALIZED UNDERSTANIDNG.
[2019-04-04 20:49] VITALS: BP 107/61
--- NOTE | 2019-04-04 23:30 | NUR ---
ATIVAN 0.5MG IVP FOR ANXIETY REQUESTED BY PATIENT. AMBULATED TO BATHROOM FOR PERSONAL NEEDS. KEPT CLEAN AND DRY.
--- NOTE | 2019-04-05 01:00 | NUR ---
SEEN BY DR KUMAR, PT ASLEEP SOUNDLY AT THIS TIME. PPN INFIUSING WELL VIAL LEFT HAND TOLERATING WELL. DR Kelly KUMAR DISCONTINUED IV ZOSYN, WILL CONTINUE TO MONITOR.
[2019-04-05 05:26] VITALS: BP 94/45
--- NOTE | 2019-04-05 05:52 | NUR ---
NO ADVERSE REACTION NOTED FROM ATB THERAPY. NO S/S OF ACUTE DISTRESS. ALL NEEDS ATTENDED.
[2019-04-05 08:52] VITALS: BP 116/52
--- NOTE | 2019-04-05 11:53 | NUR ---
AAO TIMES 4. TELE # 13 SR. PPN INFUSING AT 90 ML PER HOUR. IV SITE CDI. BS'S HYPOACTIVE. PALMER STRONG. BRP SELF. ILEOSTOMY BAG EMPTY, PATIENT EMPTIES HERSELF. NO C/O PAIN. COOPERATIVE. ANXIOUS TO GO HOME, THE DR TOLD HER SHE MIGHT GO HOME TOMORROW AFTER A PIC LINE INSERTED, SHE IS HAPPY ABOUT THAT. O2 2L NC, O2 SAT 98%.
[2019-04-05 12:19] VITALS: BP 104/57
--- NOTE | 2019-04-05 12:22 | NUR ---
CLEANED GT SITE, SLIGHT AMOUNT OF SEROUS SANGUINOUS FLUID TO SPLIT GAUZE. CLEANED WITH WOUND CLEANSER, APPLIED A NEW SPLIT GAUZE.
[2019-04-05 12:37] LABS: PLATELET COUNT 210 x10^3mcL (130-400); RED CELL DISTRIBUTION WIDTH 13.4 % (11.5-14.5)
[2019-04-05 12:45] LABS: CREATININE SERUM 0.5 mg/dL (0.6-1.0); GFR1 > 60 mL/min; POTASSIUM SERUM 3.6 mmol/L (3.5-5.1)
[2019-04-05 13:02] LABS: CARBON DIOXIDE 25.7 mmol/L (21-32); CHLORIDE SERUM 109 mmol/L (98-107); GLUCOSE SERUM 85 mg/dL (74-106); MAGNESIUM 1.9 mg/dL (1.8-2.4); PHOSPHOROUS 3.2 mg/dL (2.5-4.9); SODIUM SERUM 143 mmol/L (136-145)
[2019-04-05 13:10] LABS: BAND NEUTROPHIL 2 % (0-10); MONOCYTE 9 % (0-7); SEGMENTED NEUTROPHILS 68 % (37-75)
[2019-04-05 13:13] LABS: rbc morphology (normal/abnorm) NORMAL (NORMAL)
[2019-04-05 14:46] VITALS: BP 104/57
[2019-04-05 16:16] VITALS: BP 100/51
--- NOTE | 2019-04-05 17:55 | NUR ---
AAO TIMES 4. TPN TO LFA PATENT, CDI. RFA IV SITE SLIGHLTY SWOLLEN, RESTARTING FOR NEW IV SITE. C/O PAIN TO ABDOMEN AND ALSO TO PREVIOUS SITE FROM FAVIAN CATH. GAVE MORPHINE 1 MG IVP FOR PAIN, BP WAS 103/58, DR EPPS WAS CALLED BECAUSE HER BP WAS TOO LOW FOR 2 MG MORPHINE, SO SHE CHANGED IT TO 1 MG IVP Q 3 HOURS PRN AND IT WAS GIVEN AT 1735. SHE WAS NOT HAPPY ABOUT GETTING HER MORPHINE REDUCED, BUT I TOLD HER HER BP WAS TOO LOW FOR THAT HIGH OF A DOSE, SHE STATED THAT OTHER NURSES HAVE GIVEN IT. MELI SMITH CHARGE NURSE AGREED THAT HER BP WAS TOO LOW FOR A DOSE OF 2 MG MORPHINE, BUT SHE WAS OK WITH GIVING THE NEW AMOUNT OF 1 MG IVP. SHE IS TALKING ON HER PHONE AND WATCHING TV.
--- NOTE | 2019-04-05 19:30 | NUR ---
PT RECIEVED FROM DAY NURSE. PT RESTING IN BED AT THIS TIME. DENIES PAIN OR DISCOMFORT. PT A/OX4, CALM AND COOPERATIVE AT THIS TIME. TELE 13, SR. DENIES CP, NV, DIZZINESS, OR PALPATATIONS. PALPABLE PULSES, NO EDEMA NOTED AT THIS TIME. BREATHING E/U ON 2L NC, DENIES SOB. ABD SOFT AND ROUND, DENIES PAIN TO PALPATION. ILEOSTOMY INTACT, PT EMPTIES BY SELF. GTUBE CLAMPED AND DRAINING. PT AMBULATORY AT BASELINE. IV TO L HAND RUNNING TPN, INTACT AND INFUSING. BED AT LOWEST POSITION. CALL LIGHT WITHIN REACH. WILL CONTINUE TO MONITOR.
[2019-04-05 20:35] VITALS: BP 117/73
--- NOTE | 2019-04-05 20:45 | NUR ---
UNABLE TO GAIN SECOND IV ACCESS FOR ANTIBIOTICS. CALLED PHARMACY, PHARMACY STATED TPN CAN BE PAUSED WHILE ANTIBIOTICS ARE RUNNING.
--- NOTE | 2019-04-06 00:10 | NUR ---
PT RESTING IN BED AT THIS TIME. COMPLAINING OF PAIN TO THE ABD. MEDICATE WTIH PRN MORPHINE. BREATHING E/U ON 2L NC. BED AT LOWEST POSITION. CALL LIGHT WITHIN REACH. WILL CONTINUE TO MONITOR.
--- NOTE | 2019-04-06 00:30 | NUR ---
IV TO KWAN PLACED AT THIS TIME.
[2019-04-06 05:52] VITALS: BP 114/63
--- NOTE | 2019-04-06 06:13 | NUR ---
PT RESTING IN BED AT THIS TIME. DENIES PAIN OR DISCOMFORT. BREATHING E/U ON 2L NC. NO SIGNS OF ACUTE DISTRESS AT THIS TIME. ALL NEEDS AND CONCERNS ADDRESSED THIS SHIFT. BED AT LOWEST POSITION. CALL LIGHT WITHIN REACH. WILL ENDORSE TO DAY NURSE.
[2019-04-06 07:04] LABS: PLATELET COUNT 194 x10^3mcL (130-400); RED CELL DISTRIBUTION WIDTH 13.5 % (11.5-14.5)
--- NOTE | 2019-04-06 07:25 | NUR ---
SEEN IN BED AAOX4. NO RESP DISTRESS, BREATHING E/U ON ROOM AIR. DENIES PAIN AT THIS TIME. PATIENT STATED SHE NEEDS PICC LINE TO BE DONE TODAY AND BE DISCHARGED HOME NOT LATER THAN 16:00HRS. TPN ONGOING AT 80ML/HR TO LT HAND IV SITE. G TUBE CLAMPED. ILENOSTOMY TO RLQ NO BM AT THIS TIME. CALL LIGHT PLACED WITHIN EASY REACH. SIDERAILS UP X2.
[2019-04-06 07:36] LABS: CALCIUM 8.8 mg/dL (8.5-10.1); CARBON DIOXIDE 27.5 mmol/L (21-32); CHLORIDE SERUM 106 mmol/L (98-107); CREATININE SERUM 0.4 mg/dL (0.6-1.0); GFR1 > 60 mL/min; GLUCOSE SERUM 88 mg/dL (74-106); MAGNESIUM 1.9 mg/dL (1.8-2.4); PHOSPHOROUS 4.3 mg/dL (2.5-4.9); POTASSIUM SERUM 3.4 mmol/L (3.5-5.1); SODIUM SERUM 142 mmol/L (136-145)
--- NOTE | 2019-04-06 07:51 | NUR ---
CALLED PICC LINE OFFICE SPOKE TO MILADY MADE AWARE THAT PICC LINE NEEDED TO BE DONE THIS MORNING STATED WILL INFORM PICC LINE NURSE DARRYL TO CALL BACK.
[2019-04-06 08:40] VITALS: BP 128/56
[2019-04-06 10:08] LABS: rbc morphology (normal/abnorm) NORMAL (NORMAL)
--- NOTE | 2019-04-06 10:33 | NUR ---
CALLED TO [employer] [facility] [phone] [employer] FOR INTAKE AND SPOKE W/ ANNA REGARDING THE TPN AND IV VANCOMYCIN. CONNECTED TO GALA THE METER REPAIR SHOP SUPERVISOR. TOLD GALA PATIENT HAS MIDLINE INSTEAD OF PICC LINE. ASKED HER IF TPN OKAY W/ MIDLINE AND SHE STATED IT'S OK AND SHE HAS TO 2BAGS OF TPN AT HOME AND SHE'S CHECKING THE EXPIRATION DATE AND NOT TILL 04/10/19. SHE'S REQUESTING TO FAX THE LABS.W/ VALERIAO TROUGH, ORDER FOR TPN. TOLD THE PATIENT ABOVE AND AWARE AND REQUESTING TO RESUME THE [facility]. TOLD AND W/ ORDER. REPORT GIVEN TO JUSTIN WALLS. [phone].
--- NOTE | 2019-04-06 13:12 | NUR ---
VANCOMYCIN INFUSING WELL TO KWAN MIDLINE SITE, DRSG CDI.
--- NOTE | 2019-04-06 13:16 | NUR ---
Follow-up Nutrition Assessment: Dx: bacteremia PMHx: mitochondrial disease, primary sclerosing cholangitis, pseudotumor cerebri with ventriculoperitoneal shunt placement, gastroparesis (currently only TPN), deep venous thrombosis. Labs: (04/06) Na 142, K 3.4 L, Glu 88, BUN 11, Cr 0.4 L, H/H 10.05/15 Meds: Ativan, D50%/water, Humulin R, morphine sulfate, TPN per pharmacy, Tylenol, vancocin, vancomycin, zofran Diet: CL PO Intake: (04/04) L: 20% 1. Current TPN Support: Course completed as of 04/03/19; started on CL diet on 04/04/19. D25%, AA5% at 80 mL/hr, IL 20% at 10 mL/hr. This meets 100% estimated kcal and protein needs. Skin: intact Osorio: 19 Edema: none GI: ileostomy intact; Pt empties by self. Last BM: 04/05/[address] (04/06): RDN visited with Pt. Pt eager to go home. Pt reports that she is all set with current TPN formulation and home health. Pt has two TPN bags at home ready for use. Pt denies having questions for RDN at this time. Per previous RDN note (04/03), Pt has TPN at home and eats little bites of food occasionally for oral grat. Estimated Nutritional Needs Based on actual body weight of 47.6 kg. Energy: 0690-4501 kcal/d (30-35 kcal/kg for bacteremia) Protein: 57-67 gm/d (1.2-1.4 gm/kg for bacteremia) Fluid: 8863-0373 mL/d (1 mL/kcal) or per MD. Nutrition Diagnosis 1. Increased nutrient needs related to bacteremia as evidenced by WBC 5.0. (Resolving) Intervention/RDN Recommendation(s): 2. Continue on CL as tolerated. 3. Continue on TPN as tolerated: D25%, AA5% at 80 mL/hr, IL 20% at 10 mL/hr. This meets 100% estimated kcal and protein needs. Monitor/Evaluate Goal: Intake via nutrition support to meet at least 80% of estimated needs with acceptable tolerance within 2-3 days. Monitor: nutrition support tolerance, Labs, GI function, Skin integrity, Weights. F/U in 2-3 days as high risk (04/08-)
[2019-04-06 13:35] VITALS: BP 128/56
--- NOTE | 2019-04-06 13:54 | NUR ---
DISCHARGE INSTRUCTION EXPLAINED AND GIVEN TO PATIENT WHO IS AWAKE, ALERT, ORIENTED X4. S/L TO LT HAND REMOVED WITH CATHETER INTACT, NO SIGNS OF INFECTION NOTED, DRSG APPLIED. TPN WILL BE RESUMED AT HOME, STATED STILL HAVE LOVENOX AT HOME. TELEMETRY REMOVED AND RETURNED TO NM BY DIRECTOR OF CLINICAL SERVICESKAVITA GARRISON. WILL BE PICKED UP BY SISTER.
--- NOTE | 2019-04-06 14:30 | NUR ---
PATIENT'S SISTER BROUGHT IN PATIENT'S HOME TPN. PATIENT DEMONSTRATED HOW TO CONNECT HER TPN TO IV PUMP WITH STERILE TECHNIQUE. MIDLINE PORTS FLUSHED PATENT, DRSG NOTED CDI. REFUSED WHEELCHAIR. ACCOMPANIED BY MR BEAN SOHAM, PICKED UP PATIENT'S SISTER. CONDITION STABLE UPON DISCHARGE.
== END 2019-04-06 14:23 | disposition home health service (06) | DRG 721 ==
LOC: ED 22:47 → DU 04-02 01:53
PROVIDERS: Emergency Medicine; Surgery; ADMIT Family Medicine
PROC: 0JPT0WZ Removal of Totally Implantable Vascular Access Device from Trunk Subcutaneous Tissue and Fascia, Open Approach (ICD-10-PCS; principal; 2019-04-04 08:45)
DX: T80.211A Bloodstream infection due to central venous catheter, initial encounter (principal); K83.01 Primary sclerosing cholangitis; E88.40 Mitochondrial metabolism disorder, unspecified; R78.81 Bacteremia; Z93.1 Gastrostomy status; K31.84 Gastroparesis; B95.7 Other staphylococcus as the cause of diseases classified elsewhere; Z93.2 Ileostomy status; R74.0 Nonspecific elevation of levels of transaminase and lactic acid dehydrogenase [LDH]; J45.909 Unspecified asthma, uncomplicated; Z68.1 Body mass index [BMI] 19.9 or less, adult; Y92.009 Unspecified place in unspecified non-institutional (private) residence as the place of occurrence of the external cause
CPT/HCPCS: 82962; C1751; G0378; J1170; J1650; J1815; J2001; J2060; J2270; J2405; J2543; J2704; J2930; J3370; J7030; J7050; J7131; J7620; Q0092

== ENCOUNTER 2019-04-07 15:05 | Emergency (ER) | payer MEDICAID ==
[~2019-04-07] VITALS: Ht 162.6 cm; Wt 48.5 kg
[2019-04-07 15:14] VITALS: Ht 162.6 cm; Wt 48.5 kg
[2019-04-07 19:40] VITALS: BP 93/51
== END 2019-04-07 19:40 | disposition home or self-care (01) ==
LOC: ED 15:05
DX: T82.594A Other mechanical complication of infusion catheter, initial encounter (principal); J45.909 Unspecified asthma, uncomplicated; Z90.49 Acquired absence of other specified parts of digestive tract; Z90.89 Acquired absence of other organs; Z86.2 Personal history of diseases of the blood and blood-forming organs and certain disorders involving the immune mechanism; Z88.1 Allergy status to other antibiotic agents; Z88.2 Allergy status to sulfonamides; Z91.09 Other allergy status, other than to drugs and biological substances; Z91.040 Latex allergy status; Z88.6 Allergy status to analgesic agent; Z88.8 Allergy status to other drugs, medicaments and biological substances
CPT/HCPCS: 82962; J2270; J3010

== ENCOUNTER 2019-04-08 09:56 | Emergency (ER) | payer MEDICAID ==
[~2019-04-08] VITALS: Ht 162.6 cm; Wt 48.1 kg
[2019-04-08 10:04] VITALS: Ht 162.6 cm; Wt 48.1 kg
[2019-04-08 11:43] LABS: CALCIUM 8.7 mg/dL (8.5-10.1); CARBON DIOXIDE 28.5 mmol/L (21-32); CHLORIDE SERUM 103 mmol/L (98-107); CREATININE SERUM 0.4 mg/dL (0.6-1.0); GFR1 > 60 mL/min; GLUCOSE SERUM 95 mg/dL (74-106); POTASSIUM SERUM 3.9 mmol/L (3.5-5.1); SODIUM SERUM 139 mmol/L (136-145)
[2019-04-08 11:48] LABS: ALKALINE PHOSPHATASE 333 U/L (46-116); ALT/SGPT 305 U/L (14-59); AST/SGOT 103 U/L (15-37); BILIRUBIN TOTAL 0.5 mg/dL (0.20-1.00); TOTAL PROTEIN, SERUM 6.6 g/dL (6.4-8.2)
[2019-04-08 11:49] LABS: ALBUMIN 3.1 g/dL (3.4-5.0)
[2019-04-08 12:03] LABS: BASOPHIL % 0.5 % (0-2); PLATELET COUNT 240 x10^3mcL (130-400); RED CELL DISTRIBUTION WIDTH 12.9 % (11.5-14.5)
[2019-04-08 13:04] VITALS: BP 107/84
[2019-04-09] MEDS ORDERED: NOVAPLUS L60 MG/0.6 SC (18:06)
[2019-04-09] MEDS ORDERED: TPN ELECTROLYTE20 M2 IV (18:06)
== END 2019-04-08 13:04 | disposition home or self-care (01) ==
LOC: ED 09:56
PROVIDERS: Emergency Medicine
DX: T82.594A Other mechanical complication of infusion catheter, initial encounter (principal); J45.909 Unspecified asthma, uncomplicated; Z90.49 Acquired absence of other specified parts of digestive tract; Z90.89 Acquired absence of other organs; Z86.2 Personal history of diseases of the blood and blood-forming organs and certain disorders involving the immune mechanism; Z88.1 Allergy status to other antibiotic agents; Z88.2 Allergy status to sulfonamides; Z91.040 Latex allergy status; Z91.09 Other allergy status, other than to drugs and biological substances; Z88.6 Allergy status to analgesic agent
CPT/HCPCS: 36569; C1751; J2060; Q0092

== ENCOUNTER 2019-04-09 16:24 | Inpatient (IN) | payer MEDICAID ==
[~2019-04-09] VITALS: Ht 162.6 cm; Wt 48.8 kg
--- NOTE | 2019-04-09 17:10 | NUR ---
PT BIB FAMILY C/C LT ARM PAIN WITH SWELLING STS MID LINE INSERT YESTURDAY DR MARTINES AT BEDSIDE TO EDUARD
--- NOTE | 2019-04-09 17:34 | NUR ---
PLEASE ENTER FULL NAMES OF LOGGING CREW SUPERVISOR/RN Patient data collected by (LOGGING CREW SUPERVISOR):Sulaiman ALTMAN Assessment reviewed and completed by (RN): Al YEBOAH
--- NOTE | 2019-04-09 17:54 | NUR ---
DR MARTINES AT BEDSIDE TO GO OVER PLAN OF CARE
[2019-04-09] MEDS ORDERED: NOVAPLUS L60 MG/0.6 SC (18:06)
[2019-04-09] MEDS ORDERED: TPN ELECTROLYTE20 M2 IV (18:06)
--- NOTE | 2019-04-09 18:55 | NUR ---
FINANCIAL AID OFFICER AT BEDSIDE FOR BLOOD DRAW
--- NOTE | 2019-04-09 19:21 | NUR ---
PT ADMIT TO MS GAVE REPORT TO COSME GOING TO ROOM 223
--- NOTE | 2019-04-09 19:37 | NUR ---
PT TRANSPORTED TO MED SURG AT THIS TIME VIA WHEELCHAIR. PT IS AWAKE AND ALERT, RESP E/U. PT TRANSPORTED VIA WHEELCHAIR BY EMT JAVIER. NAD NOTED UPON LEAVING ED.
--- NOTE | 2019-04-09 19:40 | NUR ---
RECEIVED PT VIA W/C FROM E/D, ACCOMPANIED BY TRANSPORTER. PT A/A/O X 4, CALM, COOPERATIVE; WEARS GLASSES (W/ PT). AMBULATORY, NO GAIT OR BALANCE IMPAIRMENT NOTED WHEN WALKING FROM W/C TO BED. DENIES CHEST PAIN OR DISCOMFORT AT THIS TIME. SCD BY BEDSIDE. NO ACUTE RESPIRATORY DISTRESS NOTED. C/O CONSTANT ACHING PAIN TO QUITA 2/2 POSS INFECTED MEDIPORT 10, EXACERBATED BY MOVEMENT, RELIEVED BY PAIN MEDICATION. IV SITES RAC 20G CDI AND QUITA MIDLINE INSTALLED 04/08/19, CDI, CURRENTLY RUNNING TPN FROM HOME W/ ABOUT AN HOUR LEFT. ORIENTED PT TO ROOM, BED CONTROLS, CALL LIGHT SYSTEM. SIDE RAILS UP X 2, BED IN LOW POSITION. WILL ENDORSE TO KAVITA GOMEZ.
--- NOTE | 2019-04-09 19:50 | NUR ---
RECEIVED REPORT FROM BETHEL WALLS. WILL TAKE OVER CARE OF PT AT THIS TIME. PT IS AAOX4 AND FOLLOWS COMMANDS. PT IS VERY PICKY WITH THE CARE SHE IS RECEIVING FROM NURSING CARE. PT WEARS GLASSES. PT DENIES HEADACHE OR DIZZINESS AT THIS TIME. PT IS MED-SURG AND DENIES CHEST PAIN OR PRESSURE AT THIS TIME. PT PULSES ARE PALPABLE AND CAP REFILL <3 SEC. PT LUNG SOUNDS ARE CTA ON RA. PT DENIES SOB OR RESPIRATORY DISTRESS AT THIS TIME. PT ABD IS SOFT AND NONDISTENDED. PT BOWEL SOUNDS ACTIVE X4. PT DENIES N/V AT THIS TIME. PT HAS GTUBE FOR DRAINING TPN. PT VOIDS FREELY WITH BRP. PT IS AMBULATORY. PT SKIN WARM, DRY, INTACT. PT HAS CONSTANT ACHING LEFT ARM PAIN 7/10. PT RAC IV PATENT AND INTACT AT THIS TIME. PT HAS QUITA MIDLINE INSTALLED TO LEFT ARM. CALL LIGHT WITHIN REACH. BED IN LOWEST POSITION. SIDE RAILS X2 UP. WILL CONTINUE TO MONITOR.
[2019-04-09 20:30] VITALS: BP 108/59
--- NOTE | 2019-04-09 22:15 | NUR ---
PT C/O PAIN AT IV SITE. IV SITE IS SWOLLEN AT THIS TIME. WILL ATTEMPT IV INSERTION. PER PT, "I AM A HARD STICK." IS AWARE.
--- NOTE | 2019-04-09 23:00 | NUR ---
CONTACTED ER TO HAVE SOMEONE ATTEMPT IV INSERTION IN PT. ER STATED THEY ARE BUSY BUT WILL SEND SOMEONE UP SOON. WILL FOLLOW UP.
[2019-04-10 00:05] LABS: microscopic required? YES; urine erythrocyte 1+ (NEGATIVE)
[2019-04-10 00:25] LABS: AMPHETAMINE QUAL UR NONE DETECTED (See below)
--- NOTE | 2019-04-10 02:00 | NUR ---
CHECKED RBS DUE TO NO TPN RUNNING AT THIS TIME DUE TO NO IV ACCESS. PT RBS WAS 68. PROVIDED PT WITH APPLE JUICE WITH SUGAR, PACHECO CRACKER, AND VANILLA PUDDING. WILL REASSESS RBS.
--- NOTE | 2019-04-10 02:36 | NUR ---
CHARGE NURSE KATE ATTEMPTED TO INSERT IV INTO RH. UNSUCCESSFUL ATTEMPT AFTER ONE TRY. MD AWARE. WILL LET PT REST AND THEN RETRY AGAIN.
--- NOTE | 2019-04-10 03:33 | NUR ---
SPOKE TO DR. DOAN, UPDATED RE: NO IV ACCESS OF THIS TIME, WILL CONTACT PICC LINE NURSE THIS MORNING.
--- NOTE | 2019-04-10 05:22 | NUR ---
NEW IV INSERTION DONE BY AUSTIN WALLS. LFA 24G IV INSERTION. GOOD BLOOD RETURN. FLUSHED 10CC NS. IVF INFUSING AT THIS TIME. NO S/S OF REDNESS, PAIN, OR SWELLING NOTED. D/C OLD IV TO RAC. CATH INTACT. WILL CONTINUE TO MONITOR.
--- NOTE | 2019-04-10 05:46 | NUR ---
PT SLEPT INTERMITTENTLY THROUGHOUT THE NIGHT. PT COMPLIED WITH NURSING CARE THROUHGOUT THE SHIFT. PT C/O QUITA PAIN DUE TO MIDLINE. PER JUN, MEDICATED PT 1X WITH MORPHINE. SAFETY AND COMFORT MEASURES MAINTAINED. ALL QUESTIONS AND CONCERNS ADDRESSED. PT RBS WAS LOW, BUT PROVIDED PT WITH APPLE JUICE WITH SUGAR, MILK, AND PACHECO CRACKERS. WILL ENDORSE CARE TO DAY SHIFT NURSE.
[2019-04-10 05:51] VITALS: BP 92/49
--- NOTE | 2019-04-10 06:22 | NUR ---
CALLED PICC RN PLUS LEFT A DETAILED MESSAGE RE: ORDER FOR PICC LINE INSERTION. CONSENT OBTAINED. PRIMARY RN AWARE
[2019-04-10 06:58] LABS: CALCIUM 9.4 mg/dL (8.5-10.1); CARBON DIOXIDE 26.7 mmol/L (21-32); CHLORIDE SERUM 103 mmol/L (98-107); CREATININE SERUM 0.6 mg/dL (0.6-1.0); GFR1 > 60 mL/min; GLUCOSE SERUM 81 mg/dL (74-106); POTASSIUM SERUM 3.3 mmol/L (3.5-5.1); SODIUM SERUM 139 mmol/L (136-145)
--- NOTE | 2019-04-10 07:30 | NUR ---
RECEIVED PT FROM BUGGY LADLE TENDER. ASSESSED AND DOCUMENTED. STABLE. DENIES PAIN THIS TIME. SAFTEY PRECAUTIONS ARE IN PLACE. WILL MONITOR.
[2019-04-10 07:40] LABS: BASOPHIL % 0.6 % (0-2); PLATELET COUNT 302 x10^3mcL (130-400); RED CELL DISTRIBUTION WIDTH 13.6 % (11.5-14.5)
--- NOTE | 2019-04-10 08:00 | NUR ---
PICC LINE NURSE CALLED AND INFORMED THAT OLD MID LINE NEED TO BE REMOVED BEFORE PUT NEW ONE IN AND MAY NEED TO WAIT 1 OR 2 DAYS. INFORMED ABOUT THAT, SHE SAID SHE WILL REMOVE THE QUITA MIDLINE. PT IS STABLE.
[2019-04-10 09:32] VITALS: BP 101/47
--- NOTE | 2019-04-10 10:16 | NUR ---
PT C/O PAIN,6/10 AT THE QUITA MID LINE PORT AREA, AREA IS SWOLLEN. ADMINISTERED MORPHIN IV 2MG. BP 102/62 THIS TIME. WILL MONITOR. STABLE.
--- NOTE | 2019-04-10 10:30 | NUR ---
REMOVED QUITA MID LINE AND APPLIED DRESSING, NO BLEEDING NOTED.
--- NOTE | 2019-04-10 10:46 | NUR ---
PT RESTING IN BED COMFORTABLY, DENIES ANY PAIN. STABLE.
--- NOTE | 2019-04-10 12:00 | NUR ---
PT RESTING IN BED COMFORTABLY, STABLE. REMOVED DRESSING FROM LEFT UPPER CHEST. PT SAID IT WAS OLD FAVIAN CATH WAS REMOVED FROM THERE. SMALL HEALING INCISION WITH DERMABOND, CDI. NO DRAINAGE NOTED. WILL MONITOR.
[2019-04-10 14:00] VITALS: BP 107/47
--- NOTE | 2019-04-10 14:00 | NUR ---
INFORMED ABOUT PT IS VERY HARDSTICK, ONLY HAVE 24G IV, TPN OR PPN CANNOT INFUSE THROUGH 24G, SHE SAID SHE WILL PUT ON HOLD FOR TPN UNTIL ANOTHER MID LINE IN. SHE SAID TO CONTINUE D5NS. ALSO INFORMED ABOUT PT REQUEST FOR HER LOVENOX, SHE SAID SHE WILL TAKE A LOOK PT'S MEDREC AND TALK TO THE PT. PT IS STABLE.
--- NOTE | 2019-04-10 14:14 | NUR ---
Discount pharmacy card and list to low cost medical clinics given to patient by Maira.
--- NOTE | 2019-04-10 14:35 | NUR ---
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, ), G tube placement Labs: K 3.3L, ALB 3.1L, AST 103H, ALT 305H, HGB 11.4L Meds: Colace, morphine, vancomycin, zofran Diet: TPN pending, regular PO intake since admission: NPO Ht: 162.56 cm (64") Wt: 48 kg (106#) BMI: 18.2 kg/m2 Bed scale: 48 kg IBW: 120# (55 kg) %IBW: 88 UBW: 47-49 kg Age: 28/F Food Allergies: NKFA Skin: intact Osorio: 19 Edema: none GI: G-tube to LUQ clamped, ileostomy to RLQ Last BM: 04/05 Per H&P, Pt is a 28 yoF with PMH of mitochondrial disease, primary sclerosing cholangitis, pseudotumor cerebri with ventriculoperitoneal shunt placement, gastroparesis and currently on TPN, deep venous thrombosis, previous splenectomy, cholecystectomy, colectomy with ileostomy placement, came in to the ED for left arm pain at the site of Midline. RD Note (04/10): Patient was recently evaluated during previous admission on 04/03. Patient is TPN dependent and takes small bites of food for oral gratification only. Per progress note (04/10), Patient currently has Infiltrated Midline, R/O Cellulitis and Abscess. PICC line placement by PICC Nurse ordered, likely will come in [address] Hannah recommended 2 weeks of IV vancomycin 1g q12 x 2 weeks via PICC line. Continue IV Vancomycin, currently on 9th day Will remove Midline today. Patient will receive PPN through peripheral IV. Problem with: N/V/D/C: none per patient Problems with: Chewing: Swallowing: none Current appetite: good Recent wt change: none since last admission %wt change: n/a Vitamin/Supplement use: TPN dependent Special diet at home: TPN Physical activity: sedentary Nutrition education given: none at this time Food-drug interactions: none Education given: n/a Estimated Nutritional Needs Based on current body weight (48 kg) Energy: 1161-1929 kcal/day (30-35 kcal/kg for infection) Protein: 58-67 g/day (1.2-1.4 g/kg for infection) Fluid: 4657-8865 mL/day (1 mL/kcal) or per MD Nutrition Diagnosis: 1. Inadequate parenteral nutrition infusion related to TPN being held 2/2 infection as evidenced by patient not meeting 75% estimated calorie and protein needs. Intervention 1. Recommend initiating PPN until mid/ central/ PICC line is placed. PPN Dextrose 10%, AA 4.25% @ 60 ml/hr. This will provide 735 kcal and 61.2 g protein. 2. Once patient receives central line, initiate patient's home regimen. TPN D 25%, AA 5% @ 80 ml/hr, IL 20% @ 10 ml/hr. This will meet 100% calorie and protein needs of the patient. Discussed with Dr. Cunningham, Dr. Gasca and Dr. Garcia. Monitor/Evaluate Goal: PPN intake at least 75% of estimated needs Monitor: PPN intake/ tolerance, Labs, GI function F/U in 2-3 days as high risk 04/12-
--- NOTE | 2019-04-10 17:45 | NUR ---
CALLED AND INFORMED ABOUT NOW PT IS SAYING SHE DOESNOT WANT ANOTHER MIDLINE, SHE WANT ANOTHER PORTACATH. SAID SHE HAS TO DISCUSS THIS MATTER WITH MAIN DOCTOR AND TALK TO THE PT IN MORNING ROUNDS. NOW PT IS ON ANTIBIOTIC AND IVF D5NS. ALSO INFORMED ABOUT PT ASKING FOR ID DOCTOR. SAID ID DOCTOR WAS CONSULTED FROM PREVIOUS ADMISSION WEEK AGO AND THEY ARE FOLLOW HIS INSTRUCTIONS, NO NEED OF CONSULT AGAIN THIS ADMISSION, INFORMED PT ABOUT THAT.
[2019-04-10 17:53] VITALS: BP 106/55
--- NOTE | 2019-04-10 19:00 | NUR ---
PT RESTING IN BED COMFORTABLY. STABLE. DENIES ANY PAIN. GAVE REPORT TO EQUAL OPPORTUNITY DIRECTOR NURSE. LAB CALLED AND SAID PT REFUSED TO DRAW BMP/CBC BLOOD NOW, SPOKE WITH PT BUT PT STILL REFUSED. ENDORSED NIGHT RN TO INFORM NIGHT RESIDENT DOCTOR.
[2019-04-10 20:18] LABS: PLATELET COUNT 356 x10^3mcL (130-400); RED CELL DISTRIBUTION WIDTH 13.3 % (11.5-14.5)
[2019-04-10 20:31] VITALS: BP 100/59
--- NOTE | 2019-04-10 20:34 | NUR ---
Awake and verbally responsive. No respiratory distress noted on room air. Denies pain at this time. Denies n/v. Will cont.to monitor. Call light within reach.
[2019-04-10 20:39] LABS: CALCIUM 9.3 mg/dL (8.5-10.1); CARBON DIOXIDE 28.8 mmol/L (21-32); CHLORIDE SERUM 104 mmol/L (98-107); CREATININE SERUM 0.7 mg/dL (0.6-1.0); GFR1 > 60 mL/min; GLUCOSE SERUM 88 mg/dL (74-106); POTASSIUM SERUM 3.4 mmol/L (3.5-5.1); SODIUM SERUM 139 mmol/L (136-145)
[2019-04-10 20:51] LABS: BAND NEUTROPHIL 0 % (0-10); BASOPHIL 0 % (0-2); MONOCYTE 11 % (0-7); SEGMENTED NEUTROPHILS 56 % (37-75); rbc morphology (normal/abnorm) ABNORMAL (NORMAL)
[2019-04-11 05:06] VITALS: BP 93/45
--- NOTE | 2019-04-11 05:18 | NUR ---
Afebrile. No significant change in condition noted. Medicated as ordered with morphine 2mg IV for c/o right arm previous picc line site with relief. Denies n/v. Cont.on IV Vancomycin. In no apparent distress. Ambulating.
[2019-04-11 07:04] LABS: ALKALINE PHOSPHATASE 238 U/L (46-116); ALT/SGPT 153 U/L (14-59); AST/SGOT 29 U/L (15-37); BILIRUBIN TOTAL 0.4 mg/dL (0.20-1.00); CALCIUM 8.5 mg/dL (8.5-10.1); CARBON DIOXIDE 26.4 mmol/L (21-32); CHLORIDE SERUM 106 mmol/L (98-107); CREATININE SERUM 0.6 mg/dL (0.6-1.0); GFR1 > 60 mL/min; GLUCOSE SERUM 82 mg/dL (74-106); POTASSIUM SERUM 3.2 mmol/L (3.5-5.1); SODIUM SERUM 140 mmol/L (136-145); TOTAL PROTEIN, SERUM 6.7 g/dL (6.4-8.2)
[2019-04-11 07:13] LABS: ALBUMIN 2.8 g/dL (3.4-5.0)
[2019-04-11 07:55] LABS: BASOPHIL % 0.5 % (0-2); PLATELET COUNT 321 x10^3mcL (130-400); RED CELL DISTRIBUTION WIDTH 13.3 % (11.5-14.5)
[2019-04-11 07:58] LABS: MAGNESIUM 1.8 mg/dL (1.8-2.4); PHOSPHOROUS 3.4 mg/dL (2.5-4.9)
--- NOTE | 2019-04-11 08:02 | NUR ---
RECEIVE PATIENT FROM KAVITA HAMM. PATIENT IN BED AT THIS TIME, NO COMPLAINTS OF PAIN OR DISCOMFORT. SPOKE WITH PATIENT ABOUT PLAN OF CARE FOR TODAY INCLUDING WAITING FOR UPDATE FROM MEDICAL TEAM. PATIENT AGREES. CALL LIGHT IN REACH, WILL WAIT FOR RESIDENTS TO MAKE ROUNDS FOR FURTHER UPDATES.
[2019-04-11 08:23] VITALS: BP 101/50
[2019-04-11 12:11] VITALS: BP 94/49
--- NOTE | 2019-04-11 14:08 | NUR ---
SPOKE WITH DR CORDERO AND PATIENT ABOUT PICC LINE INSERTION FOR TODAY. PATIENT ALSO AGREES WITH PICC LINE INSERTION TODAY IF POSSIBLE. PICC LINE NURSE ED ALREADY PRESENT WITH CONSENT SIGNED. PICC LINE NURSE ED SPOKE EXTENSIVELY WITH PATIENT AND CHARGE NURSE KAILYN ABOUT INSERTION. ED STATES DUE TO PATIENTS BILATERAL ARM SWELLING AND HISTORY OF CLOTS, HE SUGGEST TO NOT HAVE INSERTION TODAY AND FOR FURTHER DOPPLE STUDIES TO BE COMPLETED IN CHEST FOR POSSIBLE BRACHIAL-CEPHALIC OCCLUSIONS. PATIENT AWARE. DR CORDERO INFORMED ABOUT PICC LINE NURSE RECOMMENDATIONS AND WILL SPEAK WITH DR ANN. CALL LIGHT IN REACH AT THIS TIME, NO COMPLAINTS.
--- NOTE | 2019-04-11 16:29 | NUR ---
DISCUSSED WITH DR. CORDERO THAT PT HAS POOR BLOOD VESSELS WITH SWELLING TO BILAT UPPER ARBS FROM ELBOW UP. PT HAD A NEW IV INSERTED THIS AM A 24G TO RT LATERAL HAND WITH NO VISIBLE LARGER VEINS TO FOREARM AREA. MD MADE AWARE THAT FOR CT ANGIO PT REQUIRES A 20G OR HIGHER PLACED INT HE AREA FROM UPPER FOREARM TO AC OR ABOVE. MADE AWARE THAT CENTRAL LINES DO HAVE PRESSURE GRADE FOR CT. MD STATED TO HOLD OFF ON CT ANGIO AND PICC LINE PLACEMENT AT THIS TIME. SHE WILL SPEAK WITH ID FIRST FOR RECOMENDATION. ATTENDING NURSE AND OCEAN LIFEGUARD MADE AWARE.
[2019-04-11 16:45] VITALS: BP 93/56
--- NOTE | 2019-04-11 18:30 | NUR ---
PATIENT SEATED IN BED AT THIS TIME. BUE EDEMA IS IMPROVED. VEINS ARE VISIBLE AT THIS TIME. INFORMED PATIENT THAT WE WILL CONTINUE TO WAIT FOR THE SWELLING TO DECREASE AND MAY TRY TO ATTEMPT 20G IV CATHETER INSERTION FOR POSSIBLE CT ANGIOGRAM. PATIENT AGREES, WILL ENDORSE TO ONCOMING NURSE. CALL LIGHT IN REACH, FRIEND AT BEDSIDE.
[2019-04-11 20:26] VITALS: BP 99/44
--- NOTE | 2019-04-11 22:49 | NUR ---
PT RECIEVED FROM DAY NURSE. PT RESTING IN BED AT THIS TIME. DENIES PAIN OR DISCOMFORT. BREATHING E/U ON RA AT THIS TIME. DENIES SOB. PT A/O X4, CALM AND COOPERATIVE. PT MS, DENIES CP, NV, DIZZINESS, AND PALPATATIONS. PALPABLE PULSES, EDEMA NOTED TO BUE. ICE PACK GIVEN FOR COMFORT. PT AMBULATORY AT BASELINE. AND SOFT AND FLAT, DENIES PAIN TO PALPATION. ILEOSTOMY AND GTUBE INTACT AND DRAINING. IV TO RH, CDI AND INFUSING AT THIS TIME. BED AT LOWEST POSITION. CALL LIGHT WITHIN REACH. WILL CONTINUE TO MONITOR.
--- NOTE | 2019-04-12 | NUR ---
PT RESTING IN BED A TTHIS TIME. COMPLAINING OF PAIN TO ABD. MEDICATED WIT HPRN MORPHINE. WILL CONTINUE TO MONITOR.
--- NOTE | 2019-04-12 06:42 | NUR ---
PT RESTING IN BED AT THIS TIME. DENIES PAIN OR DISCOMFORT. BREATHIGN E/U ON RA. NO SIGNS OF ACUTE DISTRESS NOTED. ALL NEEDS AND CONCERNS ADDRESSED. WILL ENDORSE TO DAY NURSE.
[2019-04-12 07:00] LABS: ALKALINE PHOSPHATASE 249 U/L (46-116); ALT/SGPT 134 U/L (14-59); AST/SGOT 26 U/L (15-37); BILIRUBIN TOTAL 0.4 mg/dL (0.20-1.00); CALCIUM 9.1 mg/dL (8.5-10.1); CARBON DIOXIDE 28.5 mmol/L (21-32); CHLORIDE SERUM 105 mmol/L (98-107); CREATININE SERUM 0.7 mg/dL (0.6-1.0); GFR1 > 60 mL/min; GLUCOSE SERUM 92 mg/dL (74-106); POTASSIUM SERUM 3.2 mmol/L (3.5-5.1); SODIUM SERUM 140 mmol/L (136-145); TOTAL PROTEIN, SERUM 7.1 g/dL (6.4-8.2)
[2019-04-12 07:04] VITALS: BP 96/47
[2019-04-12 07:26] LABS: ALBUMIN 2.9 g/dL (3.4-5.0)
--- NOTE | 2019-04-12 07:30 | NUR ---
PT IS AAOX4. NORMAL S1S2 NOTED. IV CATH TO HAND WNL. PT HAS BUE TRACE EDEMA AND TRACE EDEMA TO R HAND. PT AHS ILEOSTOSTOMY TO ABDOMEN AND GTUBE PLACED. BOTH SITE WNL. PT DENIES PAIN AND DISCOMFORT AT THIS TIME. WILL CONTINUE TO MONITOR.
[2019-04-12 07:46] LABS: PLATELET COUNT 356 x10^3mcL (130-400); RED CELL DISTRIBUTION WIDTH 13.5 % (11.5-14.5)
[2019-04-12 08:17] VITALS: BP 102/59
--- NOTE | 2019-04-12 09:23 | NUR ---
PT IV TO RFA INFILTRATED. IV CATH REMOVED INTACT. MULTIPLE NURSES UNABLE TO GET IV ACCESS, PT HAS ORDER FOR PICC PLACEMENT BUT PICC LINE NURSE STATED ACCESS WAS NOT OBTAINED DUE TO PT HAVING COMPLICATIONS. MADE DR. ANN AND DR. CORDERO AWARE THAT PT HAS NO IV ACCESS AT THIS TIME. DR. ANN SAID HE HAS NO NEW ORDERS AT THIS TIME. MADE PT AWARE. PT EDUCATED TO DRINK PLENTY OF FLUIDS AND ATTEMPT TO EAT ORDERED DIET. PT STATES SHE TYPICALLY HAS NO APPETITE AND WHEN EATING FEELS EXTREMELY FULL QUICKLY. PT EDUCATED TO EAT SMALL BITES AND SIPS THROUGH OUT THE DAY. PT VERBALIZED UNDERSTANDING. CALL LIGHT WITHIN REACH. BED IN LOWEST POSITION. WILL CONTINUE TO MONITOR.
--- NOTE | 2019-04-12 09:24 | NUR ---
VANCO AND D5NS IV HELD DUE TO NO IV ACCESS. IV CATH REMOVED INTACT AND SITE WITH NOTED EDEMA. COVERED WITH GAUZE AND BANDAID, WARM COMPRESS APPLIED AND R ARM ELEVATED. PT EDUCATED TO MAINTAIN ELEVATED POSITION TO AID IN DECREASING INFLAMMATION TO THE AREA. PT VERBALIZED UNDERSTANDING. CALL LIGHT WITHIN REACH.
[2019-04-12 11:34] VITALS: BP 128/63
--- NOTE | 2019-04-12 11:52 | NUR ---
PT'S BS =64. PAGED DR. JULES TO MAKE HER AWARE.
--- NOTE | 2019-04-12 11:58 | NUR ---
PT EDUCATED SHE IS NOW NPO DUE TO POSSIBLE PROCEDURE. PT VERBALIZED UNDERSTANDING.
[2019-04-12 12:28] LABS: BAND NEUTROPHIL 2 % (0-10); MONOCYTE 10 % (0-7); SEGMENTED NEUTROPHILS 57 % (37-75)
[2019-04-12 12:29] LABS: PLATELET MORPHOLOGY PLATELETS NORMAL; rbc morphology (normal/abnorm) ABNORMAL (NORMAL)
--- NOTE | 2019-04-12 12:32 | NUR ---
RECEIVED ORDER FROM DR. WILLIS, TYPE AND SCREEN STAT, OBTAIN CONSENT FOR MEDIPORT. ORDER NOTED AND CARRIED OUT. PT MADE AWARE.
--- NOTE | 2019-04-12 12:41 | NUR ---
PT'S BLOOD SUGAR 81 AT THIS TIME. PT DENIES DISCOMFORT. DR. CORDERO MADE AWARE THAT PT'S BS DROPPED TO 64. NO NEW ORDERS AT THIS TIME. PT MADE AWARE.
--- NOTE | 2019-04-12 14:15 | NUR ---
PT ASSISTED WITH TOYA WIPE BATH TO PREPARE FOR PROCEDURE. URINE SAMPLE FOR HCG TAKEN TO LAB.
--- NOTE | 2019-04-12 14:16 | NUR ---
INFORMED CONSENT HAD NOT BEEN SIGNED. PT REQUESTED TO SPEAK TO THE DR. WILLIS BEFORE PROCEDURE.
--- NOTE | 2019-04-12 15:30 | NUR ---
PT TAKEN TO O/R FOR INSERTION OF MEDIPORT AT THIS TIME.
[2019-04-12 17:56] VITALS: BP 106/40
--- NOTE | 2019-04-12 18:21 | NUR ---
PT BACK FROM PROCEDURE. DR. WILLIS WAS UNABLE TO PLACE MEDIPORT. DR. HASSAN CALLED TO STATE THAT PT HAS R SMALL PNEUMOTHORAX. DR. CORDERO MADE AWARE. PT HAS 2 INCISIONS ONE TO UPPER L CHEST AND THE OTHER TO L SIDE OF NECK, BOTH CLOSED WITH DERMABOND AND AUTOMOBILE DAMAGE FIELD APPRAISER. NO S/S OF INFECTION NOTED. RESP EVEN AND UNLABORED. MORNING VANCO STARTED AND PHARMACY TO REDOSE TONIGHT VANCO. PT MADE AWARE. IV CATH TO R WRIST PATENT AT TIME. PT DENIES PAIN. CALL LIGHT WITHIN REACH.
--- NOTE | 2019-04-12 19:00 | NUR ---
PT IS AAOX4. RESP EVEN AND UNLABORED. PT DENIES PAIN AT THIS TIME. IVF RUNNING TO R WRIST, SITE WNL. WILL ENDORSE ALL CARE TO KAVITA AVILES.
--- NOTE | 2019-04-12 19:35 | NUR ---
RECEIVED PT FROM DAY SHIFT RN. PT AAOX4 DENIES CASTRO/DIZZINESS. BREATHING EVEN AND UNLABORED ON NC 2L/MIN WITH NO SOB NOTED. IV LW PATENT, INFUSING WELL. PT AMBULATORY. ILEOSTOMY. GT DRAINAGE BAG IN PLACE. INCISION TO LEFT SIDE OF NECK AND LEFT UPPER CHEST, STITCHER STANDARD MACHINE. NO AUCTE DISTRESS NOTED. PT DENIES CHEST PAIN/PRESSURE. CALL BUTTON WITHIN REACH. SAFETY PRECAUTIONS IN PLACE. WILL CONTINUE TO MONITOR.
[2019-04-12 20:20] VITALS: BP 93/43
[2019-04-12 21:00] VITALS: BP 104/46
--- NOTE | 2019-04-12 22:12 | NUR ---
PT REPORTED HAVING BACK PAIN 11/23. MEDICATED PER EMAR. CALL BUTTON WITHIN REACH. SAFETY PRECAUTIONS IN PLACE. WILL CONTINUE TO MONITOR.
[2019-04-13] VITALS (7 sets, daily range): BP systolic 84–124; BP diastolic 39–52
--- NOTE | 2019-04-13 01:33 | NUR ---
PT RESTING. NO ACUTE DISTRESS NOTED. CALL BUTTON WITHIN REACH. SAFTY PRECAUTIONS IN PLACE. WILL MONITOR.
--- NOTE | 2019-04-13 04:54 | NUR ---
PT RESTING AT THIS TIME. BREATHING EVEN AND UNLABORED. NO SOB NOTED. RT PROTOCOL. PT ON AND OFF NC 2 L/MIN O2SAT 97%. PT DENIES ANY CHEST PAIN. IV LW PATENT, INFUSING WELL. PT AMBULATORY WITH BRP. MEDICATED PER EMAR. NO SIGNS OF ACUTE DISTRESS NOTED. CALL BUTTON WITHIN REACH. SAFETY PRECAUTIONS IN PLACE. WILL CONTINUE TO MONITOR AND ENDORSE CARE TO DAY SHIFT RN.
[2019-04-13 06:39] LABS: ALKALINE PHOSPHATASE 239 U/L (46-116); ALT/SGPT 110 U/L (14-59); AST/SGOT 19 U/L (15-37); BILIRUBIN TOTAL 0.41 mg/dL (0.20-1.00); CALCIUM 9.1 mg/dL (8.5-10.1); CARBON DIOXIDE 28.6 mmol/L (21-32); CHLORIDE SERUM 105 mmol/L (98-107); CREATININE SERUM 0.6 mg/dL (0.6-1.0); GFR1 > 60 mL/min; GLUCOSE SERUM 83 mg/dL (74-106); POTASSIUM SERUM 3.7 mmol/L (3.5-5.1); SODIUM SERUM 139 mmol/L (136-145); TOTAL PROTEIN, SERUM 6.8 g/dL (6.4-8.2)
[2019-04-13 06:43] LABS: RED CELL DISTRIBUTION WIDTH 13.1 % (11.5-14.5)
[2019-04-13 06:50] LABS: ALBUMIN 2.8 g/dL (3.4-5.0)
[2019-04-13 07:20] LABS: PLATELET COUNT 402 x10^3mcL (130-400)
--- NOTE | 2019-04-13 07:33 | NUR ---
PT RESTING. DENIES PAIN. NO ACUTE DISTRESS NOTED. CALL BUTTON WITHIN REACH. SAFETY PRECAUTIONS IN PLACE. ENDORSED CARE TO DAY SHIFT RN, ALL QUESTIONS ADDRESSED.
--- NOTE | 2019-04-13 08:00 | NUR ---
ALERT AND ORIENTED. ON CLEAR LIQUID DIET. ASKING FOR FULL LIQUID DIET. PLACED ON 02 2L D/T C/O MID CHEST PAIN. HAVING SHARP PAIN WITH BREATHING. SAYS SHE BREATHS FINE BUT IT HURTS TO DO SO. GASTROSTOMY BAG IN PLACE. EMPTY. PT TAKES CARE OF ILEOSTOMY AND GASTROSTOMY. VANCO INFUSING 50 CC HOUR PT HAS VERY FRAGILE IV AND IS VERY HARD STICK. ALSO RECEIVES D5NS 100 CC HOUR. CALL LIGHT WITHIN REACH.
--- NOTE | 2019-04-13 12:09 | NUR ---
DR. ANN INFORMED OF BP 84/42 HR 59 MAP 56 SAT 97%. ASYMPTOMATIC
[2019-04-13 13:04] LABS: BAND NEUTROPHIL 3 % (0-10); MONOCYTE 8 % (0-7); SEGMENTED NEUTROPHILS 68 % (37-75)
[2019-04-13 13:06] LABS: PLATELET MORPHOLOGY PLATELETS NORMAL; rbc morphology (normal/abnorm) ABNORMAL (NORMAL); target cell (codocyte) 1+
--- NOTE | 2019-04-13 13:48 | NUR ---
PT CONTINUES TO C/O SOB AND PAIN IN HER CHEST. ON UT. PAGED DR. ANN.
--- NOTE | 2019-04-13 15:11 | NUR ---
Follow-up Nutrition Assessment: Candice Reaves 223-B Dx: Possible infected mediport Labs: (04/13) ALT:110H, H/H: 10.3/31L Meds: Colace, D5 NS, Humulin PRN, Lovenox, Morphine, [place], Tylenol, Vancocin, Zofran Current Nutrition Support: PPN: D10% AA:3% at 60ml/hr via peripheral line. Total volume: 1440ml Diet: [place] diet with crackers per MD Weights: (04/10) 48kg (04/13) unable to obtain, pt with RN and family during RD visit. Skin: BUE ecchymosis, incision to left side of neck and left upper chest Edema: BUE and right hand edema Last BM: 04/12 Per progress note 04/12, continue IV Vancomycin on Day 12. Dr. Stearns surgery consulted: attempted to place portacath but could not pass the guidewire. Suspicious for DVT in chest. Pt requires transfer to [facility] for vascular surgery. MD to discuss with SS in bed huddle tomorrow. SS order for transfer in place. Estimated Nutritional Needs based on admit weight: 48kg Energy: 1440-1680kcal/day (30-35kcal/kg for underweight status) Protein: 58-67g/day (1.2-1.4g/day for underweight status) Fluid: 1440-1680ml/day or per MD Nutrition Diagnosis 1. Inadequate parenteral nutrition infusion related to TPN being held 2/2 infection as evidenced by pt not meeting estimated needs (ongoing) Intervention/RDN Recommendation(s): 1. Recommend increasing AA to 4.25%. D:10% at 60ml/hr to provide 735kcal, 61g protein. 2. Recommend continue with [place] diet. 3. Once mediport is inserted, recommend TPN D:25% AA:5% at 80ml/hr to provide 2016kcal, 96g protein, 1920ml total volume. Monitor/Evaluate Monitor/Evaluate Previous goal: PPN intakes to meet at least 75% of estimated needs with acceptable tolerance within days (not met) Goal: PPN/PO intakes to meet at least 75% of estimated needs with acceptable tolerance within days Monitor: PPN/PO intake/tolerance, Labs, GI function, Skin integrity, Weights. F/U in 2-3 days as high risk (04/14-)
--- NOTE | 2019-04-13 17:27 | NUR ---
REPORT FROM CXR TAKEN TODAY REPORTED TO DR. LEGER AND DR. ANN. WAITING FOR TO DISCUSS FINDINGS WITH PT.
--- NOTE | 2019-04-13 17:30 | NUR ---
CALLED AND SPOKE TO AND MADE HIM AWARE OF PT CXRAY RESULT THAT WAS DONE TODAY. SAYS THAT HE WILL COME TO SEE PT TODAY AND WILL EXPLAIN THE CXRAY RESULT AND THE PLAN OF CARE. ELVI RN ASSIGNED TO THIS PT MADE AWARE OF ABOVE. (SENIOR RESIDENT) MADE AWARE OF ABOVE TO RELAY TO .
--- NOTE | 2019-04-13 18:19 | NUR ---
DR. WILLIS,DR. BRAGG AND DR. CORDERO WENT INTO PTS ROOM TO GIVE RESULTS OF CHEST XRAY AND HER HAVING TREATMENT TO REDUCE HER PNEUMOTHORAX. RECOMMENDS HER GOING AHEAD WITH TREATMENT. PT SAID SHE DOES NOT WANT TO BE AWAKE FOR PROCEEDURE.
--- NOTE | 2019-04-13 19:25 | NUR ---
RECEIVED PT FROM KAVITA BOLES. PT SEEN LYING IN BED, AAOX4. NO C/O PAIN AND SOB AT THIS TIME. ON 2LPM/NC. EVEN AND UNLABORED BREATHING. DENIES CHEST PAIN/PRESSURE. DENIES ABDOMINAL DISCOMFORT AT THIS TIME. W/ ILEOSTOMY BAG, NOTED YELLOW LIQUID OUTPUT. W/ DERMABOND ON THE LEFT NECK AND LEFT CHEST. W/ MULTIPLE SCABS ON THE CHEST AND BUE. W/ ECCHYMOSIS ON BUE. SWELLING NOTED ON BUE. W/ IV SITE ON THE RIGHT WRIST GAUGE 24, PATENT AND INTACT. SIDE RAILS UPX2. CALL LIGHT ON REACH. PT STATED THAT SHE DID NOT KNOW THAT SHE WILL BE TRANSFERRED DOWN TO ICU AND THAT SHE HAS CONCERNS ABOUT THE THORAVENT PLACEMENT, DR. LEGER MADE AWARE AND STATED THAT SHE WILL CALL THE RESIDENT TO TALK TO THE PT ABOUT THE POC.
--- NOTE | 2019-04-13 19:25 | NUR ---
RECEIVED PT FROM KAVITA BOLES. PT SEEN LYING IN BED, AAOX4. NO C/O PAIN AND SOB AT THIS TIME. ON 2LPM/NC. EVEN AND UNLABORED BREATHING. DENIES CHEST PAIN/PRESSURE. DENIES ABDOMINAL DISCOMFORT AT THIS TIME. W/ ILEOSTOMY BAG ON THE RIGHT ABDOMEN AND G-TUBE ATTACHED TO A DRAINAGE BAG ON THE LEFT ABDOMEN. W/ DERMABOND ON THE LEFT NECK AND LEFT CHEST. W/ MULTIPLE SCABS ON THE CHEST AND BUE. W/ ECCHYMOSIS ON BUE. SWELLING NOTED ON BUE. W/ IV SITE ON THE RIGHT WRIST GAUGE 24, PATENT AND INTACT. SIDE RAILS UPX2. CALL LIGHT ON REACH. PT STATED THAT SHE DID NOT KNOW THAT SHE WILL BE TRANSFERRED DOWN TO ICU AND THAT SHE HAS CONCERNS ABOUT THE THORAVENT PLACEMENT, DR. LEGER MADE AWARE AND STATED THAT SHE WILL CALL THE RESIDENT TO TALK TO THE PT ABOUT THE POC.
--- NOTE | 2019-04-13 19:28 | NUR ---
SITTING UP IN BED WAITING TO BE TRANSFERED TO ICU. MAYBE HAVING THORAVENT PLACED TONIGHT. NPO IN CASE PRCEEDURE IS PERFORMED TONIGHT WITH SEDATION. VANCO INFUSING 50 CC HOUR IV IS VERY FRAGILE. CONTINUES ON D5NS 100 CC HOUR. RT PROTOCOL. RADIOLOGY CALLED TO INQUIRE FOR RATIONALE OF CXR Q 6 HOURS. WILL BE MONITORED FOR POSSIBLE RESOLUTION OF PNEUMOTHORAX. MORPHINE ADMIN X 1 FOR MID CHEST PAIN. INDEPENDENT W ADL'S. CALL LIGHT WITHIN REACH.
--- NOTE | 2019-04-13 19:39 | NUR ---
PT MADE AWARE THAT DR. DOAN WILL BE AT THE BEDSIDE TO RE-DISCUSS TO HER THE POC. PT STATED THAT SHE HAS 8/10 RIGHT CHEST PAIN AND FEELS ANXIOUS. PT STATED THAT SHE DOES NOT WANT ANY MEDICATIONS AT THIS TIME AND WILL INFORM THE NURSE IF SHE WANTS TO BE MEDICATED FOR PAIN AND ANXIETY
--- NOTE | 2019-04-13 19:45 | NUR ---
WAITING FOR AN AVAILABLE BED IN ICU. DR. DOAN AWARE
--- NOTE | 2019-04-13 20:08 | NUR ---
PT STATED THAT THE IV ON THE RIGHT WRIST IS SORE, SWELLING NOTED ON THE RUE. CHARGE NURSE MADISYN ATTEMPTING TO INSERT A NEW IV LINE. VANCOMYCIN INFUSION ON HOLD AT THIS TIME.
--- NOTE | 2019-04-13 20:33 | NUR ---
PT C/O OF PAIN TO IV SITE TO RW WHILE VANCOMYCIN IS INFUSING, NOTED WITH MILD ERYTHEMA, FLUSHED WITH NS 10ML AND ALSO WITH GOOD BLOOD RETURN AND PT DENIED ANY PAIN WHILE FLUSHING NS. MULTIPLE ATTEMPS WITH IV INSERTION BUT UNSUCCESSFUL, DR DOAN MADE AWARE, PER DR DOAN THAT OKAY TO HOLD OF VANCOMYCIN IV TONIGHT BUT OKAY TO KEEP THE IV TO RW FOR PT'S PAIN MEDICATION.
--- NOTE | 2019-04-13 20:36 | NUR ---
DR. DOAN IS PAGEGATED TO MADE AWARE THAT BP=94/39 AND MAP=57.
--- NOTE | 2019-04-13 21:05 | NUR ---
DR DOAN MADE AWARE THAT WAS ABLE TO INSERT 20G IV TO LFA, PER [place] THAT OKAY TO CONTINUE THE VANCOMYCIN TONIGHT BUT JUST INFUSE SLOWLY @ 50 ML/HR.
--- NOTE | 2019-04-13 21:08 | NUR ---
DR. DOAN STATED TO HOLD THE LOVENOX DOSE FOR TONIGHT AND MAY RESUME THE VANCOMYCIN INFUSION AT SLOW RATE. PT STATED THAT SHE WILL CHANGE HER ILEOSTOMY BAG FIRST PRIOR TO TRANFER TO ICU
--- NOTE | 2019-04-13 21:20 | NUR ---
REPORT WAS GIVEN TO KAVITA JACOBO. PT IS AAOX4. NO SOB NOTED, ON 2LPM/NC. SR ON THE COLOR ROOM ATTENDANT. PT TRANSFERRED DOWN TO ICU VIA [facility]. PT'S ALL BELONGINGS SENT DOWN WITH THE PATIENT.
--- NOTE | 2019-04-13 21:20 | NUR ---
PT TRANSFERRED TO ICU BED 3 WITH NO COMPLICATIONS, ATTACHED TO FULL SPA TECHNICIAN AND CONTINUOUS PULSE OXIMETRY, ATTACHED TO 2L NC. VITAL SIGNS TAKEN: 103/54 (73), HR 63, RR 19, O2 100%, TEMP 98.5 ORAL. RECEIVED PT AOX4 ABLE TO RESPOND TO COMMANDS, MAKE NEEDS KNOWN, ABLE TO FOLLOW COMMANDS. GCS=15. PUPILS 4MM BRISK RESPONSE TO LIGHT B/L, PERRLA. SPEECH CLEAR. DENIES CASTRO/DIZZINESS. LUNG SOUNDS CLEAR BILATERALLY, CHEST RISE/FALL SYMMETRIC, E/U BREATHING, NO ACUTE RESP DISTRESS, DENIES SOB. NASAL CANNULA 2L INTACT TO PATIENT. S1/S2 SOUNDS HEARD. DENIES CHEST PAIN, NO S/S OF CHEST PAIN. SKIN COLOR CONSISTENT WITH ETHNICITY, CAP REFILL <3 SEC X4 EXTREMITIES. PULSES MODERATE X4 EXTREMITIES, NOTED EDEMA TO BUE. D5 NS GTT INFUSING @ 100 CC/HR, IVPB VANCOMYCIN INFUSING @ 50 ML/HR. IV TO LFA 20G, PORT PATENT, NO S/S OF INFILTRATION, DRESSING CDI. ROM ACTIVE, PT AMBULATORY. JOINTS INTACT. NO S/S OF N/V. PT HAS ILEOSTOMY TO RIGHT ABD, G-TUBE TO LEFT ABD ATTACHED TO DRAINAGE BAG. ACTIVE BOWEL SOUNDS, ABD FLAT/SOFT. NO URINARY COMPLAINTS. MULTIPLE HEALING SCABS ON CHEST AND BUE, ECCHYMOSIS TO BUE, INTACT. PT CALM/COOPERATIVE WITH CARE. FAMILY SUPPORTIVE. BED AT LOWEST SETTING, CALL LIGHT WITHIN REACH, HOB ELEVATED 30 DEGREES. WILL CONT TO MONITOR.
--- NOTE | 2019-04-13 21:25 | NUR ---
ALL CONCERNS ADDRESSED TO PATIENT, UPDATED HER ON PLAN OF CARE.
[2019-04-14] VITALS (8 sets, daily range): BP systolic 91–100; BP diastolic 46–54
--- NOTE | 2019-04-14 00:01 | NUR ---
COAL MINER AT BEDSIDE FOR CHEST XRAY.
--- NOTE | 2019-04-14 04:35 | NUR ---
PT SLEEPING AT THIS TIME, EASILY AROUSABLE TO VERBAL STIMULI. PT IN NO ACUTE DISTRESS, DENIES ANY SOB OR PAIN WHEN ASKED. LFA 20G IV PORT PATENT, NO S/S OF INFILRATION, DRESSING CDI, INFUSING D5 NS GTT @ 100 CC/HR. HOB REMAINS ELEVATED 45 DEGREES PER PT COMFORT. ALL CONCERNS ADDRESSED.
--- NOTE | 2019-04-14 05:20 | NUR ---
DR. STEINBERG AT BEDSIDE FOR ASSESSMENT. UPDATES PROVIDED BY NURSING. NO NEW ORDERS AT THIS TIME.
--- NOTE | 2019-04-14 05:31 | NUR ---
PT AMBULATED TO BEDSIDE COMMODE WITH STEADY GAIT. 350CC OF YELLOW CLEAR URINE OUTPUT.
[2019-04-14 06:15] LABS: BASOPHIL % 0.2 % (0-2); RED CELL DISTRIBUTION WIDTH 13.6 % (11.5-14.5)
[2019-04-14 06:26] LABS: CALCIUM 8.6 mg/dL (8.5-10.1); CARBON DIOXIDE 28.9 mmol/L (21-32); CHLORIDE SERUM 105 mmol/L (98-107); CREATININE SERUM 0.6 mg/dL (0.6-1.0); GFR1 > 60 mL/min; GLUCOSE SERUM 90 mg/dL (74-106); MAGNESIUM 1.6 mg/dL (1.8-2.4); PHOSPHOROUS 3.5 mg/dL (2.5-4.9); POTASSIUM SERUM 3.1 mmol/L (3.5-5.1); SODIUM SERUM 140 mmol/L (136-145)
[2019-04-14 06:41] LABS: PLATELET COUNT 419 x10^3mcL (130-400)
--- NOTE | 2019-04-14 07:10 | NUR ---
REPORT RECEIVED FROM DONNELL WALLS. ALL CARE ASSUMED AT THIS TIME.
--- NOTE | 2019-04-14 07:20 | NUR ---
GAVE REPORT TO LUÍS WALLS. UPDATES PROVIDED, QUESTIONS ANSWERED. ENDORSED CARE.
--- NOTE | 2019-04-14 08:10 | NUR ---
DR. NORIEGA AT BEDSIDE. UPDATES PROVIDED, QUESTIONS ANSWERED. PER DR. NORIEGA SHE WOULD LIKE TO HAVE THE PT TRANSFERRED OUT TO [facility] FOR VASCULAR FOLLOW UP/SURGERY IF INDICATED. NO NEW ORDERS. WILL ENDORSE TO ROUNDING DOCTORS.
--- NOTE | 2019-04-14 10:00 | NUR ---
DR. ANN AND RESIDENTS AT BEDSIDE FOR ROUNDS, GRAPHICS COORDINATOR AND PRIMARY RN AT BEDSIDE. NO FURTHER UPDATES THAN PLANNING TO REACH OUT TO DR. MONIQUE AT [facility] TO SEE WHEN PT CAN TRANSFER OUT/WHEN THEY HAVE AVAILABLE BEDS. WILL CONTINUE TO MONITOR.
--- NOTE | 2019-04-14 10:02 | NUR ---
PATIENT ROUNDS WITH DR. ANN AND RESIDENTS. CHARGE NURSE AND PRIMARY NURSE AT BEDSIDE. UPDATES PROVIDED AND POC DISCUSSED. WILL CONTINUE TO MONITOR.
--- NOTE | 2019-04-14 12:17 | NUR ---
CXR AT BEDSIDE.
--- NOTE | 2019-04-14 17:00 | NUR ---
DR. WILLIS AT BEDSIDE. UPDATES PROVIDED, QUESTIONS ANSWERED. NO NEW ORDERS AT THIS TIME.
--- NOTE | 2019-04-14 17:00 | NUR ---
PARENTS OF PT AT BEDSIDE
--- NOTE | 2019-04-14 18:54 | NUR ---
SEE CM NOTE FOR UPDATE ON TRANSFER
--- NOTE | 2019-04-14 19:10 | NUR ---
RECEIVED REPORT FROM LUÍS WALLS. WILL RESUME CARE.
--- NOTE | 2019-04-14 19:23 | NUR ---
REPORT GIVEN TO MELISA WALLS. ALL CARE ENDORSED AT THIS TIME.
--- NOTE | 2019-04-14 22:10 | NUR ---
DR. CENTENO AT BEDSIDE ASSESSING PT. UPDATES PROVIDED. NO NEW ORDERS AT THIS TIME.
--- NOTE | 2019-04-14 23:30 | NUR ---
PT AMBULATED TO BEDSIDE COMMODE WITH STEADY GAIT. 350CC OF YELLOW CLEAR URINE OUTPUT.
--- NOTE | 2019-04-15 00:15 | NUR ---
PT C/O 10/23 CHEST AND BACK PAIN. GIVEN MORPHINE SULFATE 1MG IVP. WILL REASSESS FOR RELIEF OF PAIN.
[2019-04-15 03:23] VITALS: BP 87/56
--- NOTE | 2019-04-15 05:29 | NUR ---
DR. STEINBERG AT BEDSIDE DISCUSSING PLAN OF CARE WITH PT. UPDATES PROVIDED ON PT.
[2019-04-15 05:30] LABS: RED CELL DISTRIBUTION WIDTH 13.5 % (11.5-14.5)
[2019-04-15 05:34] LABS: BASOPHIL % 0 % (0-2); PLATELET COUNT 441 x10^3mcL (130-400)
[2019-04-15 05:42] LABS: CALCIUM 8.7 mg/dL (8.5-10.1); CHLORIDE SERUM 107 mmol/L (98-107); CREATININE SERUM 0.6 mg/dL (0.6-1.0); GFR1 > 60 mL/min; GLUCOSE SERUM 90 mg/dL (74-106); MAGNESIUM 1.6 mg/dL (1.8-2.4); PHOSPHOROUS 3.9 mg/dL (2.5-4.9); SODIUM SERUM 140 mmol/L (136-145)
--- NOTE | 2019-04-15 06:23 | NUR ---
DR. DOAN MADE AWARE OF LAB VALUES K+ 3.0, MAG 1.6.
--- NOTE | 2019-04-15 07:23 | NUR ---
REPORT RECEIVED FROM MELISA WALLS. ALL CARE ASSUMED AT THIS TIME.
--- NOTE | 2019-04-15 09:47 | NUR ---
DR. BLACKMAN AT BEDSIDE. UPDATES PROVIDED, QUESTIONS ANSWERED. NO NEW ORDERS AT THIS TIME. WILL CONTINUE TO MONITOR.
[2019-04-15 10:19] VITALS: Ht 162.6 cm; Wt 48.8 kg
[2019-04-15 15:50] VITALS: BP 119/56
--- NOTE | 2019-04-15 19:10 | NUR ---
RECEIVED REPORT FROM LUÍS WALLS. ASSUMING ALL CARE
--- NOTE | 2019-04-15 19:20 | NUR ---
ENTERED PT'S ROOM TO FIND LFA IV INFILTRATED. LFA NOTED RED, SWOLLEN, PT STS IT FEELS ITCHY. VANCOMYCIN INFUSION STOPPED AT THIS TIME. LUE ELEVATED ON A PILLOW, COMPRESS IN PLACE. ATTEMPTED TO INSERT A NEW IV WITH NO SUCCESS. RIPENING ROOM HAND PHIL AT BEDSIDE TO ATTEMPT INSERTING IV.
--- NOTE | 2019-04-15 19:35 | NUR ---
RECEIVED PT LAYING IN BED. PT IS A/OX4. SPEECH IS CLEAR. ABLE TO MAKE NEEDS KNOWN/FOLLOW COMMANDS. BREATHING IS E/U ON 2 LPM VIA NC. LUNGS SOUND CLEAR BILAT. SYMMETRICAL CHEST EXPANSION NOTED. PT DENIES ANY SOB. S1/S2 SOUNDS HEARD. DENIES CHEST PAIN, NO S/S OF CHEST PAIN. HR 75, NIBP 116/62 MAP 77. PALPABLE PULSES X4 EXTREMITIES. SKIN IS WARM AND DRY. CAP REFILL <3 SECS. EDEMA NOTED TO BUE. LFA IV INFUSING VANCO @ 50 ML/HR, IV NOTED INFILTRATED, RED, SWOLLEN, PT STS IT FEELS ITCHY. IV INFUSION STOPPED AT THIS TIME. WILL ATTEMP AT INSERTING A NEW IV. ABD IS SOFT, FLAT, NONTENDER TO PALPATION. BOWEL SOUNDS ACTIVE X4 QUADRANTS. ILEOSTOMY NOTED TO RIGHT ABD. G-TUBE TO LEFT ABD ATTACHED TO DRAINAGE BAG. MULTIPLE SCABS NOTED TO CHEST AND ABD. ECCHYMOSIS NOTED TO BUE. PT ABLE TO REPOSITION SELF INDEPENDENTLY. BED IN LOW POSITION. CALL LIGHT IN REACH. WILL CONT TO MONITOR
[2019-04-15 19:45] VITALS: BP 116/62
--- NOTE | 2019-04-15 19:50 | NUR ---
DR. DOAN MADE AWARE PT'S IV INFILTRATED WHILE RECEIVING VANCOMYCIN. AWARE 2 NURSES HAVE ATTEMPTED TO INSERT THE IV WITH NO SUCCESS. PER DR. DONA, HAVE AN ECONOMIC DEVELOPMENT COORDINATOR ATTEMPT AT AN IV. WILL NOTIFY ER THEATRICAL TROUPER.
--- NOTE | 2019-04-15 20:24 | NUR ---
LYDIA WALLS AT BEDSIDE AT THIS TIME IN AN ATTEMPT TO START AN IV
--- NOTE | 2019-04-15 21:16 | NUR ---
ARCHITECTURAL PROJECT MANAGERKAVITA HERNADEZ AT BEDSIDE AT THIS TIME IN AN ATTEMPT TO INSERT AN IV
--- NOTE | 2019-04-15 21:50 | NUR ---
AUTOMATIC BUFFING WHEEL FORMERKAVITA HERNADEZ AND LYDIA ATTEMPTED INSERTING AN IV WITH NO SUCCESS. WILL NOTIFY DR. DOAN
--- NOTE | 2019-04-15 22:20 | NUR ---
DR. DOAN MADE AWARE 4 NURSES HAVE ATTEMPTED INSERTING AN IV WITH NO SUCCESS. PER DR. DOAN, HOLD OFF ON ALL IV INFUSIONS. MADE AWARE PT'S CONCERN IS BECOMING HYPOGLYCEMIC WITHOUT D5NS INFUSING. PER DR. DOAN, UNSURE WHAT OTHER OPTION THE PT HAS. WILL NOTIFY OF PT'S BLOOD SUGAR AT 23:00. PT DENIES ANY HYPOGLYCEMIC S/S AT THIS TIME. WILL CONT TO MONITOR.
--- NOTE | 2019-04-15 23:08 | NUR ---
DR. DOAN MADE AWARE PT'S BLOOD SUGAR IS 76. PER DR. DOAN, OK TO ADMINISTER GLUCAGON AT THIS TIME PER EMAR ORDER. WILL CARRY OUT ORDER
[2019-04-15 23:10] VITALS: BP 94/48
--- NOTE | 2019-04-15 23:12 | NUR ---
DR. CENTENO AT BEDSIDE. UPDATED ON PT'S CURRENT STATUS. ALL QUESTIONS/CONCERNS ADDRESSED. NO NEW ORDERS RECEIVED AT THIS TIME.
--- NOTE | 2019-04-16 00:08 | NUR ---
X-RAY TECH AT BEDSIDE
--- NOTE | 2019-04-16 01:30 | NUR ---
DR. DOAN MADE AWARE PT IS C/O ACHING MID UPPER BACK PAIN. MADE AWARE PT IS UNABLE TO RECEIVE MORPHINE IV D/T IV BEING INFILTRATED. PT STS SHE DOES NOT TAKE PO PAIN MEDICATIONS D/T NOT KNOWING IF HER BODY WILL ABSORB THE MEDICATION. PER DR. BARAHONA, WILL ORDER LIDOCAIN PATCH. WILL AWAIT ORDER.
--- NOTE | 2019-04-16 02:00 | NUR ---
IV SUCCESSFULLY INSERTED TO THE RUE 24 GAUGE. IV FLUSHED 10 ML OF NS WITH NO S/S OF INFILTRATION. LFA IV REMOVED WITH CATH INTACT. PT RECONNECTED TO IV D5NS @ 100 ML/HR. WILL CONT TO MONITOR
[2019-04-16 03:02] VITALS: BP 101/54
--- NOTE | 2019-04-16 05:40 | NUR ---
DR. MCDOWELL AT BEDSIDE. UPDATED ON PT'S CURRENT STATUS. ALL QUESTIONS/CONCERNS ADDRESSED. PER DR. GARNER, OK TO ADMINISTER VANCOMYCIN INFUSION AT 70 ML/HR D/T IV BEING A SMALL GAUGE. WILL CARRY OUT ORDER
[2019-04-16 06:14] LABS: BASOPHIL % 1.3 % (0-2); RED CELL DISTRIBUTION WIDTH 12.7 % (11.5-14.5)
[2019-04-16 06:16] LABS: PLATELET COUNT 498 x10^3mcL (130-400)
[2019-04-16 06:18] LABS: CALCIUM 9.1 mg/dL (8.5-10.1); CARBON DIOXIDE 26.9 mmol/L (21-32); CHLORIDE SERUM 106 mmol/L (98-107); CREATININE SERUM 0.5 mg/dL (0.6-1.0); GFR1 > 60 mL/min; GLUCOSE SERUM 80 mg/dL (74-106); MAGNESIUM 1.8 mg/dL (1.8-2.4); PHOSPHOROUS 3.7 mg/dL (2.5-4.9); POTASSIUM SERUM 3.3 mmol/L (3.5-5.1); SODIUM SERUM 140 mmol/L (136-145)
--- NOTE | 2019-04-16 07:20 | NUR ---
REPORT GIVEN TO ELVI WALLS. ALL QUESTIONS/CONCERNS ADDRESSED. ENDORSING ALL CARE
[2019-04-16 08:00] VITALS: BP 105/51
--- NOTE | 2019-04-16 08:00 | NUR ---
SITTING UP IN BED. ALERT AND ORIENTED ON 02 2L NC. PAIN WITH DEEP INHALATION. CONTINUES CXR Q 6 HOURS. C/O BACK PAIN. ADMIN MORPHINE 2 MG IV. ON RT PROTOCOL, VANCO. D5 NS INFUSING 100 CC HOUR TO RT UPPER ARM IV. MINIMAL ASSIST WITH ADL'S. BREAKFAST AT BEDSIDE. GT DRAIN EMPTY AND ILEOSTOMY SCANT DRAINAGE NOTED. CALLLIGHT WITHIN REACH.
--- NOTE | 2019-04-16 11:07 | NUR ---
DR. ALCANTAR AND RESIDENTS CAME INTO SEE PT. WILL CONTINUE TO ATTEMPT TO GET PT TRANSFERED TO HIGHER LEVEL OF CARE.
[2019-04-16 12:00] VITALS: BP 101/49
--- NOTE | 2019-04-16 14:19 | NUR ---
RESTING QUIETLY NO C/O PAIN.LIDOCAINE PATCHES TO BACK. ON 02 2L NC. D5NS INFUSING TO RT UPPER ARM. SEEN BY DR. BOURGEOIS, LEANN BOB AND RESIDENT. MINIMAL ASSIST WITH ANY ADL'S. CALL LIGHT WITHIN REACH.
--- NOTE | 2019-04-16 15:20 | NUR ---
TRANSFERED PT TO [address]. REPORT GIVEN TO MITCHEL WALLS WHO WILL BE TAKING OVER CARE OF PT. SENT WITH ALL BELONGINGS, MEDS, REPORT. STABLE.
[2019-04-16 15:30] VITALS: BP 110/42
--- NOTE | 2019-04-16 15:30 | NUR ---
REC ICU TRANSFER, PT AA/O X4, BREATHING EVEN AND UNLABORED ON 2L NC, NO ACUTE RESP DISTESS OR SOB NOTED. TELE 4 SR NOTED, HR RANGING FROM 58-75 BPM/ DENIES ANY CP OR PRESSUE. G TUBE NOTED ON L SIDE OF ABD. COLOSTOMY BAG NOTED TO RIGHT SIDE OF ABD/ INTACT/ PT IS ABLE TO EMPTY SELF. VOIDS FREELY. AMB. IV TO THE RUE 24 G INFUSING AT D5 NS AT 100ML/HR NO REDNESS OR SWELLING NOTED. WILL CONTINUE CARE AND MONITOR.
--- NOTE | 2019-04-16 18:25 | NUR ---
NO ACUTE CHANGES AT THIS TIME, NO ACUTE RESP DISTRESS OR SOB NOTED. TOTAL OUTPUT G-TUBE 150ML/HR. TOTAL OUTPUT COLOSTOMY 150 ML/HR DARK OILY SKIN. PT IS CURRENTLY REC VANO IV AT 70 ML/HR PER ORDERS.WILL ENDORSE TO TO INCOMING RN.
--- NOTE | 2019-04-16 19:00 | NUR ---
RECEIVED REPORT FROM ANJUM WALLS. PT AAOX4 AND DENIES HEADACHE OR DIZZINESS AT THIS TIME. PT IS ON TELE #4, NSR WITH HR 69. PT DENIES CHEST PAIN OR PRESSURE AT THIS TIME. PT PULSES ARE PALPABLE AND CAP REFILL <3 SEC. PT IS ON LOVENOX SQ. PT LUNG SOUNDS CTA ON 2LPM NC. PT BREATHING EVEN AND UNLABORED. PT DENIES SOB OR RESPIRATORY DISTRESS AT THIS TIME. PT ABD SOFT AND FLAT. PT BOWEL SOUNDS ACTIVE X4. PT GTUBE ON LEFT EPIGASTRIC REGION AND COLOSTOMY BAG TO RIGHT EPIGASTRIC REGION. PT EMPTIES BOTH BAGS HERSELF. PT VOIDS FREELY WITH BRP. PT IS AMBULATORY. PT HAS SCABS TO CHEST FROM OLD [place] AND BRUISES TO BUE DUE TO ATTEMPTED REINSERTION OF NEW PORTS. PT IV IS PATENT AND INTACT AT THIS TIME. SIGNIFICANT OTHER AT BEDSIDE. CALL LIGHT WTIHIN REACH. BED IN LOWEST POSITION. SIDE RAILS X2 UP. WILL CONTINUE TO MONITOR.
[2019-04-16 19:49] VITALS: BP 107/49
--- NOTE | 2019-04-17 00:25 | NUR ---
PT SLEEPING , BUT EASILY AROUSABLE. CHECKED PT RBS, 95. NO INSULIN COVERAGE NEEDED. PT REQUESTED FOR BENADRYL FOR THE ITCHINESS ON HER KWAN. PER MAR, ADMINISTERED 25 MG BENADRYL IV. NO ACUTE DISTRESS NOTED. CALL LIGHT WITHIN REACH. BED IN LOWEST POSITION. SIDE RAILS X2 UP. WILL CONTINUE TO MONITOR.
--- NOTE | 2019-04-17 05:09 | NUR ---
PT SLEPT THROUGHOUT THE NIGHT, BUT EASILY AROUSABLE. PT COMPLIED WITH NURSING CARE THROUGHOUT THE SHIFT. NO ACUTE DISTRESS NOTED DURING THE SHIFT. COMFORT AND SAFETY MEASURES MAINTAINED DURING THE SHIFT. ALL QUESTIONS AND CONCERNS ADDRESSED. WILL ENDORSE CARE TO DAY SHIFT NURSE. WILL CONTINUE TO MONITOR.
[2019-04-17 06:11] VITALS: BP 95/43
--- NOTE | 2019-04-17 06:12 | NUR ---
@611 BP WAS 95/43 (63), WITH HR 59. PT STATED THAT "MY BP IS ALWAYS LOW IN THE NIGHTTIME OR WHEN I'M SLEEPY." MADE DR. CORDERO AWARE. WILL CONTINUE TO MONITOR.
--- NOTE | 2019-04-17 06:54 | NUR ---
PT RBS WAS 77. NO INSULIN COVERAGE. PROVIDED PT WITH JUICE AND PACHECO CRACKERS. WILL CONTINUE TO MONITOR.
[2019-04-17 07:11] LABS: CALCIUM 8.6 mg/dL (8.5-10.1); CARBON DIOXIDE 20.7 mmol/L (21-32); CHLORIDE SERUM 108 mmol/L (98-107); CREATININE SERUM 0.6 mg/dL (0.6-1.0); GFR1 > 60 mL/min; GLUCOSE SERUM 83 mg/dL (74-106); MAGNESIUM 1.7 mg/dL (1.8-2.4); PHOSPHOROUS 3.8 mg/dL (2.5-4.9); POTASSIUM SERUM 3.2 mmol/L (3.5-5.1); SODIUM SERUM 140 mmol/L (136-145)
[2019-04-17 07:14] LABS: PLATELET COUNT 269 x10^3mcL (130-400); RED CELL DISTRIBUTION WIDTH 13.2 % (11.5-14.5)
--- NOTE | 2019-04-17 07:17 | NUR ---
REPORT TAKEN FROM THE SANITARIAN INSPECTOR NURSE AT THE BEDSIDE, PATIENT RESTING AT THIS TIME, WOKE FOR REPORT THEN WENT BACK TO SLEEP, NO ACUTE DISTRESS REPORTED OR OBSERVED, WILL CONTINUE TO MONITOR.
--- NOTE | 2019-04-17 07:17 | NUR ---
ENDORSED CARE TO NAHOMI WALLS. ALL QUESTIONS AND CONCERNS ADDRESSED.
[2019-04-17 08:04] VITALS: BP 100/59
[2019-04-17 09:27] LABS: MONOCYTE 10 % (0-7)
[2019-04-17 09:29] LABS: SEGMENTED NEUTROPHILS 60 % (37-75)
--- NOTE | 2019-04-17 09:46 | NUR ---
PATIENT AWAKE AND ALERT AT THIS TIME, DENIED ACUTE DISTRESS. PATIENT WAS ORDERED POTASSIUM LIQUID AND MAG OXIDE TABLET. PATIENT TRIED TO DRINK TO POTASSIUM LIQUID BUT COULD NOT DUE TO THE TASTE. I REPORTED TO THE RESIDENT WHO VERABLIZED SHE WOULD ORDER IV POTASSIUM INSTEAD. WILL CONTINUE TO MONITOR.
[2019-04-17 10:07] LABS: rbc morphology (normal/abnorm) NORMAL (NORMAL)
[2019-04-17 11:47] VITALS: BP 111/58
[2019-04-17 16:12] VITALS: BP 99/55
[2019-04-17 16:19] VITALS: BP 99/55
--- NOTE | 2019-04-17 18:45 | NUR ---
PATIENT TOLERATED TREATMENT WELL DURING THE SHIFT, PATIENT CURRENTLY WITH CHEST TUBE ATTACHED TO COLLECTION CHAMBER WITH GRAVITY, PATIENT IS REPORTING PAIN AT CHEST TUBE SITE, MEDICATED FOR PAIN AND MONITORING AT THIS TIME, WILL REPORT TO CONTAMINATION CONSULTANT NURSE AND ENDORSE CARE.
--- NOTE | 2019-04-17 19:56 | NUR ---
RECIEVED PT FROM PREVIOUS SHIFT NURSE. PT IS A0X4. RR EVEN AND UNLABORED, NO SIGNS OF ACUTE DISTRESS. CHEST TUBE IN PLACE TO R LUNG, SKIN FREE OF CREPITUS AND DRESSING CDI. PT C/O OF PAIN 12/24 TO CHEST TUBE SITE. NOTIFIED. ILEOSTOMY DRAINING TO GRAVITY AND G TUBE ATTACHED TO A DRAINAGE BAG. FAMILY AT BED SIDE. IV TO KWAN, INTACT AND PATENT. BED IN LOWEST POSITION AND CALL LIGHT WITHIN REACH. WILL CONTINUE TO MONITOR.
[2019-04-17 20:12] VITALS: BP 95/50
--- NOTE | 2019-04-18 00:15 | NUR ---
PT RESTING, RR EVEN AND UNLABORED. NO ACUTE SIGNS OF DISTRESS. CALL LIGHT WITHIN REACH AND BED IN LOWEST POSITION. WILL CONTINUE TO MONITOR
[2019-04-18 04:16] VITALS: BP 82/58
--- NOTE | 2019-04-18 06:18 | NUR ---
DR. CORDERO MADE AWARE OF BP VIA [facility].
[2019-04-18 06:29] VITALS: BP 102/52
[2019-04-18 07:43] LABS: RED CELL DISTRIBUTION WIDTH 13.5 % (11.5-14.5)
[2019-04-18 07:46] LABS: CARBON DIOXIDE 28.7 mmol/L (21-32); CHLORIDE SERUM 105 mmol/L (98-107); CREATININE SERUM 0.6 mg/dL (0.6-1.0); GFR1 > 60 mL/min; GLUCOSE SERUM 86 mg/dL (74-106); MAGNESIUM 1.8 mg/dL (1.8-2.4); PHOSPHOROUS 3.4 mg/dL (2.5-4.9); SODIUM SERUM 140 mmol/L (136-145)
[2019-04-18 07:53] LABS: POTASSIUM SERUM 2.9 mmol/L (3.5-5.1)
--- NOTE | 2019-04-18 08:11 | NUR ---
RECIEVED REPORT FROM NOC NURSE. PATIENT CURRENTLY AWAKE ALERT AND ORIENTED. D5 NS INFUSING AT 50cc/HR TO RIGHT HAND. PATIENT CURRENTLY ON 2.5 LITER NC. CHEST TUBE IN PLACE AND DRAINING TO GRAVITY. ONSTOMY INTACT. GTUBE INTACT. NO REPORT OF PAIN AT THIS TIME. LUNG SOUNDS CLEAR TO AUSCULTATION ON 2.5 LITER NC. RECIEVED PHONE CALL FROM LAB AT 0800 REPORTING CRITICAL RESULT POTASSIUM AT 2.9. DR. SHERIFF/ BROCK PAGED VIA [facility]ATE WELL PAGED ON HER PHONE. PATIENT TO RECIEVE PO POTASSIUM COVERAGE AT 0900 PER EMAR. CURRENTLY AWAITING FURTHER ORDERS.
--- NOTE | 2019-04-18 08:41 | NUR ---
RECIEVED ORDER BY PHYSICIAN TO ADMINISTER KCL 20 MEQ/10 ML IN 250 NS IV. WILL ADMINISTER PER EMAR.
[2019-04-18 09:12] VITALS: BP 108/49
[2019-04-18 10:07] LABS: MONOCYTE 10 % (0-7); SEGMENTED NEUTROPHILS 64 % (37-75)
[2019-04-18 10:09] LABS: rbc morphology (normal/abnorm) NORMAL (NORMAL)
[2019-04-18 10:10] LABS: PLATELET COUNT 510 x10^3mcL (130-400)
--- NOTE | 2019-04-18 12:14 | NUR ---
Follow-up Nutrition Assessment: 244T/B BHARGAV KITCHEN FU HR Dx: Possible infected mediport PMHx: mitochondrial disease, primary sclerosing cholangitis, pseudotumor cerebri with ventriculoperitoneal shunt placement, gastroparesis and currently on TPN, deep venous thrombosis Labs: K 3.3L, ALB 3.1L, AST 103H, ALT 305H, HGB 11.4L Meds: Colace, morphine, vancomycin, zofran Diet: TPN (stopped), regular (just for oral gratification per patient) PO Intake: (04/18) breakfast 30%, (04/17) lunch 60%, breakfast 50%, (04/16) dinner 10%, lunch, breakfast 25% (04/13) dinner, breakfast 15%, lunch 20% Weights: (04/15) 48 kg, (04/16) 48.8 kg, (04/18) 48.6 kg I/Os: (04/17) 4200/450 (3750) Skin: scabs to chest, ecchymosis to BUE Osorio: 20 Edema: none GI: ileostomy to R abd Last BM: 04/14 Note (04/18): Patient is not receiving any form of nutrition. Patient has a consult with vascular surgeon for line placement to resume TPN. Per Dr. Doan, pt will likely receive line on Sunday per Dr. Garzon. Per progress note (04/18), Yesterday's CXR showed worsening of PTX to 30-40% on R side. Chest tube was placed by Dr. Stearns. Subsequent CXR was taken and showed 5% of PTX. Today's CXR shows resolution of PTX. Pt denies SOB, cough. Pt noted severe pain in chest tube site. On [address] Garzon will be seeing pt today for further recommendation for line placement. Pt does not meet nutritional needs at the moment. Estimated Nutritional Needs Based on body weight (48 kg) Energy: 7950-4223 kcal/day (30-35 kcal/kg for infection) Protein: 58-67 g/day (1.2-1.4 g/kg for infection) Fluid: 2231-4013 mL/day (1 mL/kcal) or per MD Nutrition Diagnosis: 1.Inadequate parenteral nutrition infusion related to TPN being held 2/2 infection as evidenced by patient not meeting 75% estimated calorie and protein needs. Intervention: 1. Recommend initiating PPN until mid/ central/ PICC line is placed. PPN Dextrose 10%, AA 4.25% @ 60 ml/hr. This will provide 735 kcal and 61.2 g protein. 2. Once patient receives central line, initiate patient's home regimen. TPN D 25%, AA 5% @ 80 ml/hr, IL 20% @ 10 ml/hr. This will meet 100% calorie and protein needs of the patient. No new recommendations at this time. Monitor/Evaluate: Goal: Have pt meet at least 75% of estimated needs Monitor: PO intake, Labs, GI function F/U in 2-3 days as high risk /5-6
[2019-04-18 12:39] VITALS: BP 115/57
--- NOTE | 2019-04-18 14:08 | NUR ---
PATIENT RETURNED FROM CT.
--- NOTE | 2019-04-18 14:24 | NUR ---
RECIEVED PHONE CALL FROM XRAY STATING THAT THEY WILL NOT DO ANOTHER CHEST XRAY ON PATIENT DUE TO RADIATION EXPOSURE. PATIENT JUST RECIEVED A CT SCAN OF CHEST TODAY. SPOKE WITH . HE IS AWARE.
[2019-04-18 18:08] VITALS: BP 106/51
--- NOTE | 2019-04-18 18:22 | NUR ---
PATIENT CURRENTLY AWAKE ALERT AND ORIENTED. AT BEDSIDE. NO REPORT OF SOB. PATIENT ON 2 LITER NC. PATIENT REQUESTING AMBIEN FOR SLEEP. WILL ENDORSE TO NOC NURSE. IV TO RIGHT AC FLUSHED AND SALINE LOCKED.
--- NOTE | 2019-04-18 18:26 | NUR ---
PATIENT CURRENTLY AWAKE ALERT AND ORIENTED. PATIENT ON 2.5 L NC. 5%DEXTROSE-NS INFUSING AT 50CC/HOUR. KCL CONTINUES TO INFUSE AT 45/HOUR. DURATION OF KCL PROLONGED DUE TO PATIENT'S SELF REPORT OF IRRITATION AT THE SITE OF THE VEIN. CT OF CHEST COMPLETED TODAY. RESULTS TO BE EXPLAINED TO PATIENT BY PROSIDING PROVIDER. IV SITE TO RIGHT HAND INTACT AND INFUSING. NO SIGNS/SYMPTOMS OF INFILTRATION AT THE SITE. NO REDNESS OR SWELLING AT IV SITE. WILL ENDORSE CARE TO NOC NURSE.
--- NOTE | 2019-04-18 19:35 | NUR ---
RECEIVED PT FROM AM NURSE, PT LAYNG DOWN IN BED. PT AAOX4, ABLE TO FOLLOW COMMANDS AND MAKE NEEDS KNOWN. DENIES CASTRO/DIZZINESS. ON TELE#[address] DENIES CP/PRESSURE AT THIS TIME. PALPABLE PULSES TO ALL EXTREMETIES. NO EDEMA NOTED. LUNG SOUNDS CTA, BREATHING EVEN AND UNLABORED ON 2.5L NC. CHEST TUBE TO RIGHT SIDE OF CHEST DRAINING TO GRAVITY, NO DRAINAGE NOTED. NO ACUTE RESP DISTRESS NOTED. ABD SOFT AND FLAT. ACTIVE BS X4 QUAD. DENIES N/V. ILEOSTOMY TO LUQ, NO DRAINAGE NOTED ON BAG. GTUBE TO LUQ CLAMPED. VOIDS FREELY,BRP. AMBULATORY. SCABS TO CHEST GARY, BRUISES TO BUE AND LEFT SIDE OF NECK. IV TO RH INFUSING POTASSIUM AND D5NS, SITE WNL. NO ACUTE DISTRESS NOTED. BED AT LOWEST SETTING. SIDE RAILS X2 UP. CALL LIGHT WITHING REACH. WILL CONT TO MONITOR.
[2019-04-18 21:45] VITALS: BP 127/74
--- NOTE | 2019-04-18 22:21 | NUR ---
PT C/O REDNESS AND SWELLING TO RUE, SITE IS RED TO THE TOUCH AND PT STATES ITCHINESS. DR CORDERO MADE AWARE. PER DR CORDERO NO NEW ORDERS RECEIVED. DR WILL COME AND ASSESS PT. WILL CONT TO MONITOR.
--- NOTE | 2019-04-18 22:38 | NUR ---
DR CORDERO CAME AND SEE PT, PER DR WILL MONITOR ARM AND GIVE BENADRYL PRN FOR ITCHINESS.
--- NOTE | 2019-04-19 00:13 | NUR ---
PT C/O 9 PAIN AT CHEST TUBE SITE, MEDICATED WITH PRN MORPHINE PER JUN. PT ALSO C/O ITCHINESS TO CHEST TUBE SITE AND KWAN, MEDICATED WITH PRN BENADRYL PER JUN. NO ACUTE DISTRESS NOTED. WILL CONT TO MONITOR.
[2019-04-19 05:12] VITALS: BP 115/52
[2019-04-19 06:15] LABS: CALCIUM 8.8 mg/dL (8.5-10.1); CARBON DIOXIDE 27.8 mmol/L (21-32); CHLORIDE SERUM 106 mmol/L (98-107); CREATININE SERUM 0.5 mg/dL (0.6-1.0); GFR1 > 60 mL/min; GLUCOSE SERUM 84 mg/dL (74-106); MAGNESIUM 1.7 mg/dL (1.8-2.4); PHOSPHOROUS 3.7 mg/dL (2.5-4.9); POTASSIUM SERUM 3.5 mmol/L (3.5-5.1); SODIUM SERUM 140 mmol/L (136-145)
--- NOTE | 2019-04-19 06:27 | NUR ---
PT SLEPT AT INTERVALS THROUGHOUT THE NIGHT, BREATHING EVEN AND UNLABORED ON 2.5 LNC. NO RESP DISTRESS NOTED. PT CONT TO C/O PAIN AT CHEST TUBE SITE, STATES SHE WILL ASK FOR PAIN MEDS WHEN SHE NEEDS IT. NO SIGNIFICANT CHANGES DURING SHIFT. ALL NEEDS ASSESSED AND ATTENDED TO. BED AT LOWEST SETTING. SIDE RAILS X2 UP. CALL LIGHT WITHING REACH. WILL CONT TO MONITOR AND ENDORSE CARE TO AM NURSE.
[2019-04-19 07:00] LABS: PLATELET COUNT 478 x10^3mcL (130-400)
[2019-04-19 07:02] LABS: MONOCYTE 17 % (0-7); SEGMENTED NEUTROPHILS 51 % (37-75)
[2019-04-19 07:03] LABS: BAND NEUTROPHIL 0 % (0-10); BASOPHIL 0 % (0-2)
[2019-04-19 07:04] LABS: PLATELET MORPHOLOGY PLATELETS INCREASED; rbc morphology (normal/abnorm) ABNORMAL (NORMAL)
--- NOTE | 2019-04-19 07:34 | NUR ---
RECEIVED PT'S REPORT FROM LEAVING NURSE. PT IS RESTING BUT AROUSED AND OPEN EYES. PT BREATHING ON O2 2L VIA NC. R CHEST TUBE IN PLACE, DRAINING VIA GRAVITY, LIGHT YELLOW FLUID NOTED. ILEOSTOMY AND G-TUB ON ABD. IV SITE PATENT, INTACT, D5NS IS INFUSING AT 75ML/H. WILL CONTINUE TO MONITOR.
[2019-04-19 08:36] VITALS: BP 111/50
--- NOTE | 2019-04-19 10:10 | NUR ---
PT COMPLAINED IT IS HARD TO TAKE KCL PO 2/2 THE TASTE. MIXED WITH ORANGE JUICE, EDUCATED PT ABOUT THIS MEDICATION. PT STATED SHE WILL TRY TO TAKE SLOWLY.
[2019-04-19 12:44] VITALS: BP 106/42
--- NOTE | 2019-04-19 13:04 | NUR ---
PT COMPALIN OF CHEST TUBE SITE AND BACK PAIN. MORPHINE IVP GIVEN PER PRN ORDER.
[2019-04-19 17:41] VITALS: BP 136/76
--- NOTE | 2019-04-19 17:42 | NUR ---
PT WALKED 50 FEET IN THE [place] W. MINIMAL ASSISTANCE. PT TOLERATED WELL.
--- NOTE | 2019-04-19 17:49 | NUR ---
THROUGH SHIFT, KEEPING TO ENCOURAGE PT TO TAKE HER KCL. PT TOOK TOTALLY ABOUT HALF. PT COMPLAIN OF PAIN INCREASING WHILE DEEP BREATHING, MORPHINE GIVEN ONCE PER PRN ORDER. PT ONLY HAD 20% INTAKE ON EACH MEAL. PT'S BLOOD SUGAR AT 80-90. D5NS IS INFUSING AT 75ML/HR. PT REFUSED D5NS INFUSING AT 100ML AND STATED PAIN ON FAST INFUSING RATE. ILEOSTOMY AND G-TUB DRAINING BAG ARE DRAINED BY PT. PT COMPLAINED OF BACK PAIN, PAGE GATED DR. ISRAEL. WAITING FOR ORDER. WILL ENDORSE ONCOMING NURSE TO CONTINUE PT'S CARE.
--- NOTE | 2019-04-19 19:05 | NUR ---
RECEIVED REPORT FROM GRACIE WALLS. WILL RESUME CARE.
--- NOTE | 2019-04-19 19:25 | NUR ---
RECEIVED PT AAOX4, SPEECH CLEAR. PT ABLE TO MAKE NEEDS KNOWN AND FOLLOW COMMANDS. BREATHING E/U. ON 2L VIA NC. LUNG SOUNDS DIMINISHED BILATERALLY. PT HAS CHEST TUBE IN PLACE TO R SIDE TO GRAVITY. S1S2 AUSCULTATED. PT STATES NO PAIN AT THIS TIME. RH 20G WNL WITH NS INFUSING AT 10CC/HR. CAP REFILL <3 SEC. PULSES PALPABLE. PT AMBULATORY. ABDOMEN SOFT, NONTENDER. BS ACTIVE X 4. NO N/V. RUQ ILEOSTOMY AND LUQ GTUBE. VOIDS FREELY, STATES NO URINARY COMPLAINTS. PT CALM RESTING IN BED AT THIS TIME. BED IN LOW POSITION. CALL LIGHT WITHIN REACH. WILL CONTINUE TO MONITOR.
[2019-04-19 20:30] VITALS: BP 112/62
--- NOTE | 2019-04-19 21:11 | NUR ---
DR. CENTENO AT BEDSIDE ASSESSING PT. UPDATES PROVIDED.
--- NOTE | 2019-04-19 21:17 | NUR ---
PT C/O CHEST TUBE SITE AND BACK PAIN. GIVEN DILAUDID 1MG IVP. WILL REASSESS FOR RELIEF OF PAIN.
[2019-04-20 05:00] VITALS: BP 99/48
--- NOTE | 2019-04-20 06:27 | NUR ---
PT TAKEN OFF UINT BY COTTON CLEANER FOR CHEST X-RAY 2V VIA WHEELCHAIR.
--- NOTE | 2019-04-20 06:42 | NUR ---
PT RETURNED FROM CHEST X-RAY AND TOLERATED WELL.
--- NOTE | 2019-04-20 06:42 | NUR ---
PT C/O FEELING ANXIOUS. GIVEN ATIVAN 0.5MG IVP.
[2019-04-20 06:43] LABS: CALCIUM 8.8 mg/dL (8.5-10.1); CARBON DIOXIDE 28.4 mmol/L (21-32); CHLORIDE SERUM 107 mmol/L (98-107); CREATININE SERUM 0.5 mg/dL (0.6-1.0); GFR1 > 60 mL/min; GLUCOSE SERUM 81 mg/dL (74-106); MAGNESIUM 1.7 mg/dL (1.8-2.4); POTASSIUM SERUM 3.3 mmol/L (3.5-5.1); SODIUM SERUM 142 mmol/L (136-145)
[2019-04-20 06:51] LABS: RED CELL DISTRIBUTION WIDTH 13.8 % (11.5-14.5)
[2019-04-20 06:57] LABS: PLATELET COUNT 468 x10^3mcL (130-400)
--- NOTE | 2019-04-20 07:00 | NUR ---
RECEIVED REPORT FROM MELISA WALLS AT BEDSIDE, PT SLEEPING IN BED IN NO APPARENT ACUTE DISTRESS
--- NOTE | 2019-04-20 07:35 | NUR ---
PT RESTING IN BED, IN NO APPARENT ACUTE DISTRESS, VERBAL, ABLE TO MAKE NEEDS KNOWN, CALM AND COOPERATIVE W/ POC, PERRLA, NO REDNESS/DRAINAGE EENT, NO FACIAL DROOP/SLURRED SPEECH, DENIED CASTRO/PAIN/DISCOMFORT, DENIED CP/PALPITATION, DENIED N/V/D, SEE SHIFT ASSESSMENT, CHEST TUBE TO (R) SIDE PATENT AND DRAINED WELL W/ GRAVITY, NOTED 10ML IN COLLECTING CHAMBER, CLEAR, ILIOTOMY AND GT PATENT, IV PATENT AND INFUSING WELL, DRESSING CDI, BS ACTIVE X 4, PALP PULSES, CAP REFIL <3S, CONTINENT, AMBULATORY, ALL NEEDS ADDRESSED, SAFETY PROTOCOL FOLLOWED, CONTINUE TO MONITOR
[2019-04-20 08:04] LABS: MONOCYTE 9 % (0-7); SEGMENTED NEUTROPHILS 50 % (37-75)
[2019-04-20 08:11] LABS: BASOPHIL 1 % (0-2)
[2019-04-20 08:12] LABS: PLATELET MORPHOLOGY PLATELETS INCREASED; rbc morphology (normal/abnorm) ABNORMAL (NORMAL)
[2019-04-20 09:17] VITALS: BP 100/58
--- NOTE | 2019-04-20 10:29 | NUR ---
AM MEDs GIVEN PER MD ORDER, TOLERATED WELL, NO ASE NOTED AT THIS TIME, EDUCATED PT R/T MEDs, ASE AND MONITOR, VERBALLY UNDERSTANDING, SAFETY PROTOCOL MAINTAINED, CONTINUE TO MONITOR
--- NOTE | 2019-04-20 11:56 | NUR ---
PT RESTING IN BED, VOID X 1, REPORT NO PAIN/DISCOMFORT AT THIS TIME, IV PATENT AND INFUSING WELL, BS CHECKED PER ORDER VIA EMAR, NOTED 82, PT MADE AWARE OF RESULT OF CXR THIS AM PER PT REQUEST, ALL NEEDS ADDRESED, SAFETY PROTOCOL FOLLOWED, CONTINUE TO MONITOR
[2019-04-20 13:43] VITALS: BP 108/62
--- NOTE | 2019-04-20 16:59 | NUR ---
PT REFUSED TO SIGN INFORMED CONSENT FOR PARTHO CATH INSERTION TOMORROW, SAID WANT TO HAVE CENTRAL LINE INSERTION INSTEAD, PT WANTED TO TALK TO , DR GUTIÉRREZ PAGESulaiman AND MADE AWARE, CHARGE NURSE MELI MADE AWARE, CONTINUE TO MONITOR
--- NOTE | 2019-04-20 17:46 | NUR ---
PT AMBULATED ON HALLWAY W/ ASSISTED OF STUDENT NURSE, IN NO ACUTE DISTRESS, PER DR GUTIÉRREZ, THE SURGEON WILL COME AND DISCUSS W/ PT R/T HER REFUSAL AND DECISION, CHARGE NURSE MELI MADE AWARE, CONTINUE TO MONITOR
--- NOTE | 2019-04-20 17:48 | NUR ---
SURGEON ANA CRISTINA AHN
[2019-04-20 17:53] VITALS: BP 11/53
--- NOTE | 2019-04-20 19:48 | NUR ---
SHIFT REASSESSMENT DONE.PATIENT ALERT AND ORIENTED.IN BED,IN GOOD SPIRIT,CONVERSANT.SAYS SHE LIVE IN [facility].2 LITERS N/C.CHEST TUBE TO L SIDE,GRAVITY.PATIENT AMBULATORY.D5NS AT 100 CC/ HOUR.K+ RIDER INFUSING.TELE 4 SR.HAS ILEOSTOMYRUQ.GTUBE LUQ,CLAMP.SCABS TO CHEST,BRUISES BUE,L SIDE OF NECK,TOO.PATIENT ON LOVENOX.VOIDING,BRP.FOR PROCEDURE IN AM,PORTACATH INSERTION,BUT REPORT SAYS NOT SIGNING CONSENT.ORDER NOT TO HOLD LOVENOX,NPO AFTER MIDNIGHT.CALL LIGHT IN REACH.
--- NOTE | 2019-04-20 20:00 | NUR ---
PATIENT VERBALIZED AGAIN SHE DO NOT WANT FAVIAN CATH INSERION IN AM,AND ASKED IF DR DE LA PAZ IS COMING IN ANYTIME,SAYS AM NURSE TOLD HER HE WILL BE IN TONIGHT TO TALK TO HER,2 CHARGE NURSE KATHARINA AND MELI AWARE.PATIENT REMINDED SHE WILL BE NPO AFTER MIDNIGHT.DID NOT SIGN CONSENT YET FROM PREVIOUS SHIFT.
[2019-04-20 20:30] VITALS: BP 108/53
--- NOTE | 2019-04-20 21:19 | NUR ---
SCHEDULED MED GIVEN,NO INCIDENT.PATIENT EATING HER SHAKES,ENSURE AND ICE CREAM SHE MIXED.IVF D5 NS AT 100 CC/ HOUR,K+ RIDER ALMOST DONE.PATIENT C/O PAIN IV SITE EARLY SHIFT BUT REMINBDED K+ RIDER MAKES IT SENSITIVE,BUT NO INFILTRATION NOTED.CALL LIGHT IN REACH.
--- NOTE | 2019-04-20 22:22 | NUR ---
CORRECTION:CHEST TUBE R SIDE TO GRAVITY.ILEOSTOMYRUQ,GT TO LUQ.
--- NOTE | 2019-04-20 22:42 | NUR ---
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
--- NOTE | 2019-04-20 23:05 | NUR ---
PATIENT JUST GIVEN DILAUDID 1 MG IVP REQUESTED,SAYS CHEST TUBE SITE HURING AFTER AMBULATION.ALSO BLOOD SUGAR TAKEN NOW,93.
--- NOTE | 2019-04-20 23:07 | NUR ---
WANTED DOOR CLOSE LONG TERM,SAYS SHE CAN HEAR NURSES TALKING/HALLWAY.
--- NOTE | 2019-04-21 00:37 | NUR ---
PATIENT IV WAS LEAKING WHEN KATHARINA MADE HER ROUNDS,UNABLE TO SAVE.REMOVED BY KATHARINA.PATIENT IS A HARD STICK,HAD GUAGE 24 BEFORE,SAYS SHE LET ME START.BUT KATHARINA SAYS GEORGE Ruiz WILL TRY.THANKS.
--- NOTE | 2019-04-21 00:42 | NUR ---
GEORGE IN THE ROOM NOW,WILL START IV.
--- NOTE | 2019-04-21 00:57 | NUR ---
NEW IV SITE L UPPER ARM 22 GUAGE STRATED BY Sara VAZQUEZ,THANKS.WILL RESUME IVF.
--- NOTE | 2019-04-21 01:15 | NUR ---
PATIENT SAYSING SHE MAIGHT NEED BENADRYL,SAYS SHE IS ITCHING BUT WILL LET ME KNOW.
--- NOTE | 2019-04-21 01:26 | NUR ---
WANTING BENADRYL NOW.
--- NOTE | 2019-04-21 01:35 | NUR ---
VITAL SIGNS 97 70 20 110/60 72 MAP 98% O2 AT 2 LITERS.
--- NOTE | 2019-04-21 01:36 | NUR ---
PATIENT GIVEN 5 MG BENADRYL IVP,WANTING IT MIXED WITH 10 CC NS,SAYS IT WILL BURN IF IT IS NOT MIXED,THAN FLUSH WITH 5 CC NS.VERY DETAIL OF WHAT SHE WANTS.STILL AWAKE,BUSY TEXTING WITH BOYFRIEND.QUIET ENVIRONMENT MAINTAINED,DOOR CLOSE USP.
--- NOTE | 2019-04-21 03:11 | NUR ---
NEW IVF BAG HANG WITH NO INCIDENT.PATIENT FOUND WIDE AWAKE.SAYS ALL THE TAPE FROM TELE MAKE HER ITCH,HAD BENADRYL IVP A WHILE AGO.
[2019-04-21 05:36] VITALS: BP 106/51
--- NOTE | 2019-04-21 06:36 | NUR ---
REMAINS NPOI,BLOOD SUGAR 78.IVF D5NS AT 100 CC/ HOUR.STILL DO NOT WANT TO SIGN CONSENT.CHECKLIST INITIATED.WILL ENDORSE TO NEXT SHIFT.
[2019-04-21 06:39] LABS: RED CELL DISTRIBUTION WIDTH 13.9 % (11.5-14.5)
[2019-04-21 06:53] LABS: PLATELET COUNT 499 x10^3mcL (130-400)
[2019-04-21 07:02] LABS: CALCIUM 8.9 mg/dL (8.5-10.1); CARBON DIOXIDE 27.3 mmol/L (21-32); CHLORIDE SERUM 106 mmol/L (98-107); CREATININE SERUM 0.6 mg/dL (0.6-1.0); GFR1 > 60 mL/min; GLUCOSE SERUM 74 mg/dL (74-106); PHOSPHOROUS 3.9 mg/dL (2.5-4.9); POTASSIUM SERUM 3.3 mmol/L (3.5-5.1); SODIUM SERUM 142 mmol/L (136-145)
--- NOTE | 2019-04-21 07:58 | NUR ---
RECEIVED PT FROM PAL RN. PT RESTING IN BED WITH BOTH EYES CLOSED. NO S/S OF ACUTE DISTRESS. SINUS CARMEL ON TELE 4, HR 59. NO S/S OF PAIN. NO SOB ON 2LNC. IV WNL TO QUITA, PATENT AND FLUSHES WELL. IVF FLOWING. CALM AT THIS TIME. SIDE RAILS UP X2. GTUBE TO LUQ, CDI. ILEOSTOMY TO RUQ ABD. CDI. RIGHT SIDE CHEST TUBE IN PLACE TO GRAVITY. RR EVEN/UNLABORED. NO S/S OF ACUTE RESPIRATORY DISTRESS. BED IN LOW POSITION. CALL LIGHT WITHIN REACH. WILL CONT. TO MONITOR.
[2019-04-21 09:05] VITALS: BP 105/54
--- NOTE | 2019-04-21 10:53 | NUR ---
PT C/O OF RIGHT SIDE PAIN, DESCRIBES BURNING/IRRITATION. DECLINED TO PAIN MED. ANXIOUS. DECLINED TO ANXIETY MED. AA/OX4 LAYING IN BED. RR EVEN/UNLABORED. CHEST EXPANSION SYMMETRICAL. DENIES SOB. NO S/S OF ACUTE RESPIRATORY DISTRESS. CHEST TUBE IN PLACE TO RIGHT CHEST, IN TACT. SITE WNL. DR. EPPS AT BEDSIDE TALKING TO PATIENT ADDRESSING QUESTIONS/CONCERNS. NO KPAD TO LEFT CHEST, PER PT REQUEST/PHYSICIAN ORDER. IV WNL TO QUITA, IVF FLOWING. BED IN LOW POSITION. CALL LIGHT WITHIN REACH. WILL CONT. TO MONITOR.
[2019-04-21 11:42] LABS: BAND NEUTROPHIL 7 % (0-10); BASOPHIL 2 % (0-2); MONOCYTE 14 % (0-7); PLATELET MORPHOLOGY PLATELETS INCREASED; SEGMENTED NEUTROPHILS 31 % (37-75)
[2019-04-21 11:43] LABS: rbc morphology (normal/abnorm) ABNORMAL (NORMAL); target cell (codocyte) 1+
--- NOTE | 2019-04-21 12:07 | NUR ---
PT TAKEN FOR PROCEDURE BY OR TEAM. AA/OX4. NO S/S OF ACUTE DISTRESS. GLASSES LEFT WITH SIGNIFICANT OTHER. HCG WIPES COMPLETED. IV WNL TO QUITA, SALINE LOCKED. SITE WNL. REPORT ENDORSED TO SHUTTLE PREPARATION SUPERVISORKAVITA MCKAY. PT CALM/COOPERATIVE AT THIS TIME. CHEST TUBE IN TACT TO RIGHT CHEST, NO LEAK NOTED. NO C/O PAIN AT THIS TIME. RR EVEN/UNLABORED. CHEST EXPANSION SYMMETRICAL. NO SOB ON ROOM AIR. AMBULATORY WITH FULL ROM, GAIT STEADY. VOID X1 IN RR, INDEPENDENT. TAKEN BY LUZ MARIA.
[2019-04-21 13:25] VITALS: BP 105/54
[2019-04-21 14:50] VITALS: BP 119/70
--- NOTE | 2019-04-21 14:50 | NUR ---
PT BACK FROM PROCEDURE. AA/OX4. AMBULATORY TO BED WITH FULL ROM, GAIT STEADY. PORTACATH TO LEFT CHEST, SITE WNL. DRESSING CDI. NO ERYTHEMA NOTED. NO C/O PAIN. VS STABLE. O2 SAT 100% ON 3LNC, HR 104, RR 18, TEMP 98.4F, BP 119/70. CHEST TUBE CLAMPED IN OR BY KAVITA SERRANO AT 1440. CXR ORDERED FOR 1 HOUR AFTER CLAMP PER DR. LOPEZ VERBAL ORDER. IV WNL TO QUITA. SITE WNL. CALM/COOPERATIVE. SIGNIFICANT OTHER AT BEDSIDE. BED IN LOW POSITION. CALL LIGHT WITHIH REACH. WILL CONT. TO MONITOR.
--- NOTE | 2019-04-21 15:00 | NUR ---
Follow-up Nutrition Assessment: 244T/B BHARGAV KITCHEN FU HR Dx: Possible infected mediport PMHx: mitochondrial disease, primary sclerosing cholangitis, pseudotumor cerebri with ventriculoperitoneal shunt placement, gastroparesis and currently on TPN, deep venous thrombosis Labs: (04/21) K 3.3L, BUN 5.0L, ALB 3.1L, AST 103H, ALT 305H, HGB 10.3L Meds: Colace, D 50%, Humulin, morphine, vancomycin, zofran Diet: PPN (D 10%, AA 3% + MVI 10 ml, @ 60 ml/hr), regular (just for oral gratification per patient) PO Intake: (04/19) dinner 10%, lunch 20%, (04/18) breakfast 30%, lunch 40% Weights: (04/15) (04/16) 48.8 kg, (04/18) 48.6 kg, (04/21) 48.3 kg I/Os: (04/20) 2560/150 (2410) Skin: scabs to chest, ecchymosis to BUE Osorio: 20 Edema: none GI: ileostomy to R abd, G-tube LUQ Last BM: 04/18 Note (04/21): Patient was alert and oriented and said that she eats few bites of food for oral gratification however her nutrition flowsheet shows intakes as high as 40%. Patient denies eating that much food. Patient will be weighed accurately after she returns from surgery per cupola charger insulation. Dr. Garzon, changed patient's diet order to low fat from dinner (04/21). Dr. Dowling said that diet order may have changed as patient has malabsorption syndrome. Per progress note (04/21), Pt will be undergone line placement tomorrow by Dr. Garzon. PT and PTT ordered. PT is NPO after midnight. Clumping of Chest tube will be attempted tomorrow after Line placement. Estimated Nutritional Needs Based on body weight (48 kg) Energy: 3179-3707 kcal/day (30-35 kcal/kg for infection) Protein: 58-67 g/day (1.2-1.4 g/kg for infection) Fluid: 2373-5997 mL/day (1 mL/kcal) or per MD Nutrition Diagnosis: 1.Inadequate parenteral nutrition infusion related to TPN being held 2/2 infection as evidenced by patient not meeting 75% estimated calorie and protein needs. (ongoing) Intervention: 1. Recommend initiating PPN until mid/ central/ PICC line is placed. PPN Dextrose 10%, AA 4.25% @ 60 ml/hr. This will provide 735 kcal and 61.2 g protein. 2. Once patient receives central line, initiate patient's home regimen. TPN D 25%, AA 5% @ 80 ml/hr, IL 20% @ 10 ml/hr. This will meet 100% calorie and protein needs of the patient. 3. Continue low fat diet (for oral gratification). Discussed with Dr. Doan Monitor/Evaluate: Goal: Have pt meet at least 75% of estimated needs Monitor: PO intake, Labs, GI function F/U in 2-3 days as high risk 04/23-
--- NOTE | 2019-04-21 18:03 | NUR ---
CHEST TUBE REMOVED FROM RIGHT CHEST BY DR. WILLIS WITH DR. GUTIÉRREZ AT BEDSIDE. PT GIVEN IV MED FOR ANXIETY. LIDOCAINE GIVEN TO PT BY DR. WILLIS. PT TOLERATED PROCEDURE WELL. NO S/S OF ACUTE RESPIRATORY DISTRESS. NO SOB ON 3LNC. LUNG SOUNDS CTA BILATERALLY. CHEST EXPANSION SYMMETRICAL. NO CHEST PAIN. NO C/O PAIN. SITTING UP IN BED EATING DINNER. IV WNL TO PORTACATH, IV FLUIDS FLOWING. BED IN LOW POSITION. CALL LIGHT WITHIN REACH. WILL CONTINUE TO MONITOR.
[2019-04-21 18:09] VITALS: BP 107/61
--- NOTE | 2019-04-21 18:46 | NUR ---
PT SITTING IN BED EATING DINNER. NO S/S OF ACUTE DISTRESS. TOLERATING LOW FAT DIET WELL. NO N/V. NO SOB ON 3LNC. DRESSING TO RIGHT CHEST S/P CHEST TUBE REMOVAL CDI. RR EVEN/UNLABORED. CHEST EXPANSION SYMMETRICAL. NO S/S OF ACUTE RESPIRATORY DISTRESS. LEFT CHEST PORTACATH IN TACT, DRESSING CDI. IVF FLOWING. VS STABLE. CALM/COOPERATIVE. BED IN LOW POSITION. AA/OX4. CALL LIGHT WITHIN REACH. WILL ENDORSE TO ONCOMING SHIFT.
[2019-04-21 19:12] VITALS: BP 105/56
--- NOTE | 2019-04-21 19:25 | NUR ---
CARE ASSUMED FROM OUTGOING RN. PT RESTING COMFORTABLY IN BED. NO ACUTE DISTRESS NOTED. EVEN AND UNLABORED RESPIRATIONS ON 2LNC. ON TELE# 4 READING SR SR 64. S/P LEFT PORT-A-CATH PLACEMENT, DRESSING WITH MINIMAL SANGENEOUS DRAINAGE. S/P RIGHT CHEST TUBE REMOVED, DRESSING CDI. C/O PAIN/DISCOMFORT TO LEFT PORT-A-CATH, WILL MEDICATE PER EMAR. RUQ ILEOSTOMY IN PLACE, LUQ G-TUBE IN PLACE, DRESSING CDI. BED IN LOWEST POSITION. SIDE RAILS UPX2. CALL LIGHT WITHIN REACH. WILL CONTINUE TO MONITOR.
--- NOTE | 2019-04-22 00:03 | NUR ---
PT RESTING COMFORTABLY IN BED. C/O 6/10 PAIN AND ITCHINESS, MEDICATED PER EMAR VIA LEFT CHEST PORT-A-CATH, GOOD BLOOD RETURN NOTED, FLUSHING WELL. BLOOD SUGAR CHECKED, 99, NO COVEREAGE NEEDED. ALL QUESTIONS AND CONCERNS ANSWERED. BED IN LOWEST POSITION. SIDE RAILS UPX2. CALL LIGHT WITHIN REACH. WILL CONTINUE TO MONITOR.
[2019-04-22 04:59] VITALS: BP 104/52
[2019-04-22 06:19] LABS: CARBON DIOXIDE 28.4 mmol/L (21-32); CHLORIDE SERUM 104 mmol/L (98-107); CREATININE SERUM 0.6 mg/dL (0.6-1.0); GFR1 > 60 mL/min; GLUCOSE SERUM 77 mg/dL (74-106); MAGNESIUM 1.8 mg/dL (1.8-2.4); PHOSPHOROUS 3.7 mg/dL (2.5-4.9); POTASSIUM SERUM 3.1 mmol/L (3.5-5.1); SODIUM SERUM 139 mmol/L (136-145)
[2019-04-22 06:31] LABS: ALBUMIN 3.1 g/dL (3.4-5.0)
--- NOTE | 2019-04-22 06:49 | NUR ---
PT SLEPT IN INTERVAL THROUGHOUT THE SHIFT. ALL NEEDS TENDED TO AND MET. LOVENOX HELD. C/O PAIN TO PORT-A-CATH AND ITCHINESS MEDICATED PER EMAR. PORT-A-CATH PATENT RUNNING FLUIDS PER EMAR, DRESSING MINIMAL DRAINAGE, NO ACTIVE BLEEDING, INTACT. DRESSING TO RIGHT CHEST,S/P CHEST TUBE REMOVAL, CDI. ON TELE# 4 READING SR 60. RUQ ILEOSTOMY IN PLACE, LUQ G-TUBE IN PLACE, DRESSINGS CDI. BLOOD SUGARS, 99 AND 80, NO COVERAGE NEEDED PER SLIDING SCALE. BED IN LOWEST POSITION. SIDE RAILS UPX2. CALL LIGHT WITHIN REACH. WILL ENDORSE TO ONCOMING SHIFT.
--- NOTE | 2019-04-22 07:10 | NUR ---
RECEIVED PT FROM NOC KAVITA OSULLIVAN. PT FOUND RESTING IN BED WITH BOTH EYES CLOSED. NO S/S OF ACUTE DISTRESS. NO S/S OF PAIN. PORTACATH TO LEFT CHEST IN TACT, DEXTROSE 10% RUNNING AT 30CC/HR PER PHYSICIAN ORDER. SITE WNL. NO N/V. NSR ON TELE 4, HR 74. CALM/COOPERATIVE. NO SOB ON 2LNC. RR EVEN/UNLABORED. BED IN LOW POSITION. CALL LIGHT WITHIN REACH. WILL CONT. TO MONITOR.
[2019-04-22 07:51] VITALS: BP 107/56
[2019-04-22 07:53] LABS: PLATELET COUNT 394 x10^3mcL (130-400); RED CELL DISTRIBUTION WIDTH 14.1 % (11.5-14.5)
[2019-04-22 10:11] LABS: MONOCYTE 11 % (0-7); SEGMENTED NEUTROPHILS 52 % (37-75); rbc morphology (normal/abnorm) ABNORMAL (NORMAL)
[2019-04-22 10:12] LABS: acanthocyte (spur cell) 1+
[2019-04-22 10:13] LABS: tear drop cell (dacryocyte) 1+
[2019-04-22 10:14] LABS: PLATELET MORPHOLOGY PLATELETS NORMAL
--- NOTE | 2019-04-22 11:57 | NUR ---
PT LAYING IN BED. AA/OX4. NO S/S OF ACUTE DISTRESS. NO SOB ON 2LNC. NO C/O PAIN. NO CHEST PAIN. NO N/V. PORTACATH PATENT WITH GOOD BLOOD RETURN TO LEFT CHEST, IVF FLOWING. NO CASTRO. NO DIZZINESS. NO FEVER. VS STABLE. CALM/COOPERATIVE. GTUBE DRAIN DRESSING CHANGED BY PATIENT. CDI. DRESSING TO RIGHT CHEST CDI. DRESSING TO LEFT CHEST AT PORTACATH SITE SATURATED WITH DRY BLOOD. DR. GUTIÉRREZ AND DR. DE LA PAZ AWARE. RECEIVED ORDER TO CHANGE DRESSING. WILL CARRY OUT. BED IN LOW POSITION. CALL LIGHT WITHIN REACH. WILL CONT. TO MONITOR.
[2019-04-22 12:03] VITALS: BP 107/61
--- NOTE | 2019-04-22 13:13 | NUR ---
PT COMPLAINT OF "IRRITATION" TO LEFT CHEST/RIGHT CHEST AFTER PHYSICIAN CHANGED DRESSINGS TO RIGHT CHEST AND LEFT CHEST PORTACATH. OFFERED PT TYLENOL, PT REFUSED. PT WANTS IV PAIN NARCOTICS. WILL DISCUSS PAIN MANAGEMENT WITH PHYSICIAN.
[2019-04-22 13:56] VITALS: BP 107/61
[2019-04-22] MEDS ORDERED: VANCOMYCIN1 GM/2001 IV (14:15)
--- NOTE | 2019-04-22 17:00 | NUR ---
PT BEING DISCHARGED TO HOME WITH HOME HEALTH AND HOME TPN. NO S/S OF ACUTE DISTRESS. NO SOB ON ROOM AIR. RR EVEN/UNLABORED. NO N/V. NO CHILLS. NO FEVER. VS STABLE. CALM/COOPERATIVE. LEFT CHEST PORTACATH IN TACT. DRESSING CHANGED BY DR. GUTIÉRREZ AROUND 1300. SEE CHART FOR DISCHARGE PHOTOS. SITE APPEARS NORMAL COLOR FOR ETHINCITY. SUTURES IN TACT. NO DRAINAGE NOTED AT THIS TIME. DRESSING CDI. DRESSING TO RIGHT CHEST CHANGED BY DR. MARADIAGA AROUND 1300. CDI. DEXTROSE 10% RUNNING AT 30CC/HR PER DR. MARADIAGA ORDER UNTIL PT LEAVES TO HOME. WAITING FOR TPN TO BE DELIEVERED TO HOME. GTUBE TO LUQ CDI, DRAIN CHANGED BY PT. LUQ ILEOSTOMY IN TACT. BAG EMPTIED BY PT. NO IV ACCESS. TELE REMOVED. NO CHES PAIN. BELONGINGS WITH PATIENT. WILL CONT. TO MONITOR.
--- NOTE | 2019-04-22 18:07 | NUR ---
PT BEING TAKEN DOWN TO LOBBY BY SHANE CALVERT, TAKEN BY WHEEL CHAIR ON ROOM AIR. NO S/S OF ACUTE DISTRESS. NO COMPLAINT OF PAIN. NO SOB ON ROOM AIR. PORTACATH PATENT WITH BLOOD RETURN. SALINE LOCKED PER PHYSICIAN ORDER. CALM/COOPERATIVE. GLASSES WITH PATIENT. AWAKE, ALERT, ORIENTED X4.
== END 2019-04-22 18:10 | disposition home or self-care (01) | DRG 711 ==
LOC: ED 16:24 → DU 18:25 → MU 18:25 → IC 18:25 → MU 19:38 → IC 04-13 21:17 → DU 04-16 15:17
PROVIDERS: Internal Medicine; Surgery; ADMIT General Practice
PROC: 05JY3ZZ Inspection of Upper Vein, Percutaneous Approach (ICD-10-PCS; principal; 2019-04-12 15:30)
PROC: 027034Z Dilation of Coronary Artery, One Artery with Drug-eluting Intraluminal Device, Percutaneous Approach (ICD-10-PCS; 2019-04-17)
PROC: 0W9930Z Drainage of Right Pleural Cavity with Drainage Device, Percutaneous Approach (ICD-10-PCS; 2019-04-17)
PROC: 02HV33Z Insertion of Infusion Device into Superior Vena Cava, Percutaneous Approach (ICD-10-PCS; 2019-04-21)
PROC: B548ZZA Ultrasonography of Superior Vena Cava, Guidance (ICD-10-PCS; 2019-04-21)
PROC: 05H533Z Insertion of Infusion Device into Right Subclavian Vein, Percutaneous Approach (ICD-10-PCS; 2019-04-21)
DX: T80.218A Other infection due to central venous catheter, initial encounter (principal); E43 Unspecified severe protein-calorie malnutrition; T86.0 Complications of bone marrow transplant; K83.01 Primary sclerosing cholangitis; E88.41 MELAS syndrome; K31.84 Gastroparesis; J95.811 Postprocedural pneumothorax; E83.42 Hypomagnesemia; Z93.1 Gastrostomy status; E87.6 Hypokalemia; J45.909 Unspecified asthma, uncomplicated; Y83.8 Other surgical procedures as the cause of abnormal reaction of the patient, or of later complication, without mention of misadventure at the time of the procedure; Y82.8 Other medical devices associated with adverse incidents; Z68.1 Body mass index [BMI] 19.9 or less, adult; Z93.2 Ileostomy status; Z98.2 Presence of cerebrospinal fluid drainage device
CPT/HCPCS: 82962; A4301; C1729; C1751; G0378; J1170; J1200; J1610; J1644; J1650; J2001; J2060; J2175; J2250; J2270; J2405; J2704; J3370; J3475; J3480; J3490; J7030; J7042; J7050; J7121; J7131; J7613; J7620; Q0092; Q9967

== ENCOUNTER 2019-05-20 09:31 | Inpatient (IN) | payer MEDICAID ==
[~2019-05-20] VITALS: Ht 162.6 cm; Wt 49.2 kg
[~2019-05-20 09:31] MED LIST changes: +NOVAPLUS L60 MG/0.6 SC; +VANCOMYCIN1 GM/2001 IV
[2019-05-20 11:24] LABS: PLATELET COUNT 306 x10^3mcL (130-400); RED CELL DISTRIBUTION WIDTH 13.9 % (11.5-14.5)
[2019-05-20 11:52] LABS: microscopic required? YES; urine erythrocyte 3+ (NEGATIVE)
[2019-05-20 12:04] LABS: CALCIUM 8.5 mg/dL (8.5-10.1); CARBON DIOXIDE 26.9 mmol/L (21-32); CHLORIDE SERUM 103 mmol/L (98-107); CREATININE SERUM 0.6 mg/dL (0.6-1.0); GFR1 > 60 mL/min; GLUCOSE SERUM 110 mg/dL (74-106); POTASSIUM SERUM 3.2 mmol/L (3.5-5.1); SODIUM SERUM 139 mmol/L (136-145)
[2019-05-20 12:10] LABS: ALBUMIN 3.4 g/dL (3.4-5.0); ALKALINE PHOSPHATASE 108 U/L (46-116); ALT/SGPT 70 U/L (14-59); AST/SGOT 44 U/L (15-37); BILIRUBIN TOTAL 0.4 mg/dL (0.20-1.00)
[2019-05-20 12:43] LABS: MONOCYTE 2 % (0-7); SEGMENTED NEUTROPHILS 94 % (37-75)
[2019-05-20 13:06] LABS: LIPASE 97 IU/L (73-393)
[2019-05-20 13:11] LABS: burr cell (echinocyte) 1+
[2019-05-20 13:15] LABS: PLATELET MORPHOLOGY PLATELETS NORMAL
[2019-05-20 13:20] LABS: rbc morphology (normal/abnorm) ABNORMAL (NORMAL)
[2019-05-20 13:34] LABS: FREE T4 0.91 ng/dL (0.76-1.46); FREE THYROXINE INDEX 2.3 ug/dL (1.4-4.5); T3 TOTAL 1.19 ng/mL; T4(THYROXINE) 7.1 ug/dL (4.7-13.3)
[2019-05-20 14:01] LABS: MAGNESIUM 1.6 mg/dL (1.8-2.4)
[2019-05-20 14:11] LABS: CHOLESTEROL/HDL RATIO 4.1
[2019-05-20 15:44] VITALS: BP 101/50
[2019-05-20 15:50] VITALS: Ht 162.6 cm; Wt 49.2 kg
[2019-05-20 18:10] VITALS: BP 101/50
[2019-05-20 20:32] VITALS: BP 105/53
[2019-05-21 05:49] VITALS: BP 114/50
[2019-05-21 07:34] LABS: CALCIUM 8.1 mg/dL (8.5-10.1); CARBON DIOXIDE 24.8 mmol/L (21-32); CHLORIDE SERUM 105 mmol/L (98-107); CREATININE SERUM 0.6 mg/dL (0.6-1.0); GFR1 > 60 mL/min; GLUCOSE SERUM 111 mg/dL (74-106); POTASSIUM SERUM 3.4 mmol/L (3.5-5.1); SODIUM SERUM 138 mmol/L (136-145)
[2019-05-21 07:47] LABS: PLATELET COUNT 273 x10^3mcL (130-400); RED CELL DISTRIBUTION WIDTH 14.2 % (11.5-14.5)
[2019-05-21 08:48] VITALS: BP 106/50
[2019-05-21 10:35] LABS: BAND NEUTROPHIL 0 % (0-10); BASOPHIL 1 % (0-2); MONOCYTE 3 % (0-7); SEGMENTED NEUTROPHILS 95 % (37-75)
[2019-05-21 10:38] LABS: rbc morphology (normal/abnorm) ABNORMAL (NORMAL)
[2019-05-21 10:39] LABS: PLATELET MORPHOLOGY PLATELETS NORMAL; target cell (codocyte) 1+
[2019-05-21 12:20] VITALS: BP 120/57
[2019-05-21 16:46] VITALS: BP 150/69
[2019-05-21 20:10] VITALS: BP 105/58
[2019-05-22 05:49] VITALS: BP 96/53
[2019-05-22 07:22] LABS: CALCIUM 8.1 mg/dL (8.5-10.1); CARBON DIOXIDE 25.4 mmol/L (21-32); CHLORIDE SERUM 109 mmol/L (98-107); CREATININE SERUM 0.4 mg/dL (0.6-1.0); GFR1 > 60 mL/min; GLUCOSE SERUM 93 mg/dL (74-106); POTASSIUM SERUM 3.7 mmol/L (3.5-5.1); SODIUM SERUM 143 mmol/L (136-145)
[2019-05-22 07:36] LABS: MAGNESIUM 1.8 mg/dL (1.8-2.4); PHOSPHOROUS 3.8 mg/dL (2.5-4.9)
[2019-05-22 07:54] LABS: BASOPHIL % 0.8 % (0-2); PLATELET COUNT 249 x10^3mcL (130-400); RED CELL DISTRIBUTION WIDTH 14.4 % (11.5-14.5)
[2019-05-22 08:24] VITALS: BP 113/50
[2019-05-22 12:07] VITALS: BP 112/64
[2019-05-22 16:42] VITALS: BP 130/47
[2019-05-22 21:04] VITALS: BP 112/52
[2019-05-23 05:30] VITALS: BP 101/60
[2019-05-23 07:59] VITALS: BP 92/49
[2019-05-23 08:56] LABS: PLATELET COUNT 274 x10^3mcL (130-400)
[2019-05-23 08:57] LABS: CALCIUM 8.3 mg/dL (8.5-10.1); CARBON DIOXIDE 25.5 mmol/L (21-32); CHLORIDE SERUM 108 mmol/L (98-107); CREATININE SERUM 0.4 mg/dL (0.6-1.0); GFR1 > 60 mL/min; GLUCOSE SERUM 98 mg/dL (74-106); POTASSIUM SERUM 3.8 mmol/L (3.5-5.1); SODIUM SERUM 142 mmol/L (136-145)
[2019-05-23 10:49] LABS: BAND NEUTROPHIL 0 % (0-10); BASOPHIL 0 % (0-2); MONOCYTE 15 % (0-7); SEGMENTED NEUTROPHILS 75 % (37-75)
[2019-05-23 10:50] LABS: PLATELET MORPHOLOGY PLATELETS INCREASED; rbc morphology (normal/abnorm) ABNORMAL (NORMAL)
[2019-05-23 11:49] VITALS: BP 109/86
[2019-05-23 15:48] VITALS: BP 108/54
[2019-05-23 20:41] VITALS: BP 106/38
[2019-05-24 05:09] VITALS: BP 101/45
[2019-05-24 06:57] LABS: PLATELET COUNT 294 x10^3mcL (130-400); RED CELL DISTRIBUTION WIDTH 14.3 % (11.5-14.5)
[2019-05-24 07:07] LABS: CALCIUM 8.1 mg/dL (8.5-10.1); CARBON DIOXIDE 25.2 mmol/L (21-32); CHLORIDE SERUM 108 mmol/L (98-107); CREATININE SERUM 0.4 mg/dL (0.6-1.0); GFR1 > 60 mL/min; GLUCOSE SERUM 92 mg/dL (74-106); POTASSIUM SERUM 3.7 mmol/L (3.5-5.1); SODIUM SERUM 143 mmol/L (136-145)
[2019-05-24 07:23] VITALS: BP 104/48
[2019-05-24 10:11] LABS: SEGMENTED NEUTROPHILS 35 % (37-75)
[2019-05-24 10:12] LABS: MONOCYTE 12 % (0-7); rbc morphology (normal/abnorm) NORMAL (NORMAL)
[2019-05-24 11:40] VITALS: BP 108/64
[2019-05-24 16:16] VITALS: BP 121/45
[2019-05-24 19:40] VITALS: BP 107/63
[2019-05-25 05:17] VITALS: BP 93/48
[2019-05-25 06:20] LABS: RED CELL DISTRIBUTION WIDTH 14.3 % (11.5-14.5)
[2019-05-25 07:04] LABS: CALCIUM 8.5 mg/dL (8.5-10.1); CARBON DIOXIDE 24.8 mmol/L (21-32); CHLORIDE SERUM 108 mmol/L (98-107); CREATININE SERUM 0.4 mg/dL (0.6-1.0); GFR1 > 60 mL/min; GLUCOSE SERUM 91 mg/dL (74-106); MAGNESIUM 1.9 mg/dL (1.8-2.4); PHOSPHOROUS 4.5 mg/dL (2.5-4.9); POTASSIUM SERUM 3.7 mmol/L (3.5-5.1); SODIUM SERUM 143 mmol/L (136-145)
[2019-05-25 07:34] VITALS: BP 104/50
[2019-05-25 07:45] LABS: BASOPHIL % 0 % (0-2)
[2019-05-25 07:50] LABS: PLATELET COUNT 289 x10^3mcL (130-400)
[2019-05-25 12:03] VITALS: BP 105/61
[2019-05-25 17:22] VITALS: BP 108/73
[2019-05-25 19:30] VITALS: BP 119/62
[2019-05-26] VITALS (7 sets, daily range): BP systolic 94–117; BP diastolic 42–82
[2019-05-26 08:41] LABS: PLATELET COUNT 295 x10^3mcL (130-400); RED CELL DISTRIBUTION WIDTH 14.4 % (11.5-14.5)
[2019-05-26 09:19] LABS: CALCIUM 8.9 mg/dL (8.5-10.1); CARBON DIOXIDE 24.3 mmol/L (21-32); CHLORIDE SERUM 108 mmol/L (98-107); CREATININE SERUM 0.4 mg/dL (0.6-1.0); GFR1 > 60 mL/min; GLUCOSE SERUM 99 mg/dL (74-106); MAGNESIUM 1.9 mg/dL (1.8-2.4); PHOSPHOROUS 4.2 mg/dL (2.5-4.9); POTASSIUM SERUM 3.8 mmol/L (3.5-5.1); SODIUM SERUM 142 mmol/L (136-145)
[2019-05-26 11:43] LABS: BASOPHIL 1 % (0-2); MONOCYTE 14 % (0-7); SEGMENTED NEUTROPHILS 48 % (37-75)
[2019-05-26 11:44] LABS: rbc morphology (normal/abnorm) ABNORMAL (NORMAL)
[2019-05-26 11:47] LABS: PLATELET MORPHOLOGY PLATELETS INCREASED
== END 2019-05-26 22:58 | disposition short-term general hospital (02) | DRG 721 ==
LOC: ED 09:31 → DU 12:54 → MU 12:54 → DU 15:14 → MU 05-26 09:55
PROVIDERS: Emergency Medicine; ADMIT Internal Medicine
DX: T80.211A Bloodstream infection due to central venous catheter, initial encounter (principal); A41.01 Sepsis due to Methicillin susceptible Staphylococcus aureus; K83.01 Primary sclerosing cholangitis; E88.40 Mitochondrial metabolism disorder, unspecified; E83.42 Hypomagnesemia; K31.84 Gastroparesis; E88.41 MELAS syndrome; T82.7XXA Infection and inflammatory reaction due to other cardiac and vascular devices, implants and grafts, initial encounter; Z93.1 Gastrostomy status; E87.6 Hypokalemia; G93.2 Benign intracranial hypertension; J45.909 Unspecified asthma, uncomplicated; Z93.2 Ileostomy status; Z98.2 Presence of cerebrospinal fluid drainage device; Z86.718 Personal history of other venous thrombosis and embolism; Z68.1 Body mass index [BMI] 19.9 or less, adult; Y92.009 Unspecified place in unspecified non-institutional (private) residence as the place of occurrence of the external cause
CPT/HCPCS: 82962; 84439; 87804; 94150; G0378; J0744; J1200; J1650; J2020; J2060; J2270; J2405; J2543; J3370; J3480; J7030; J7131; J7620; Q0092; Q0163

== ENCOUNTER 2019-11-14 23:23 | Emergency (ER) | payer MEDICAID ==
[~2019-11-14] VITALS: Ht 162.6 cm; Wt 55.3 kg
[2019-11-14 23:30] VITALS: Ht 162.6 cm; Wt 55.3 kg
[2019-11-15 01:21] VITALS: BP 101/43
== END 2019-11-15 01:20 | disposition home or self-care (01) ==
LOC: ED 23:23
DX: T85.528A Displacement of other gastrointestinal prosthetic devices, implants and grafts, initial encounter (principal); J45.909 Unspecified asthma, uncomplicated; Z46.59 Encounter for fitting and adjustment of other gastrointestinal appliance and device; Z86.2 Personal history of diseases of the blood and blood-forming organs and certain disorders involving the immune mechanism; Z90.89 Acquired absence of other organs; Z90.49 Acquired absence of other specified parts of digestive tract; Z88.2 Allergy status to sulfonamides; Z88.6 Allergy status to analgesic agent; Z88.1 Allergy status to other antibiotic agents; Z91.048 Other nonmedicinal substance allergy status; Z91.040 Latex allergy status; Z88.8 Allergy status to other drugs, medicaments and biological substances
CPT/HCPCS: Q0092; Q9967